=== PATIENT | male | born 1965 | race Caucasian/White ===

== ENCOUNTER 2016-10-31 15:50 | Inpatient (IN) | payer BC, MEDICAID ==
[2016-10-31] MEDS ORDERED: Acetaminophen 325 MG Tab PO PRN (17:21)
[2016-10-31] MEDS ORDERED: Bisacodyl 5 MG Tab PO PRN (17:21)
[2016-10-31] MEDS ORDERED: Polyethylene Glycol 3350 Powder 17 GM Packet PO PRN (17:21)
[2016-10-31] MEDS ORDERED: Docusate Sodium 100 MG Cap PO PRN (17:21)
[2016-10-31] MEDS ORDERED: Sodium Chloride 0.9% 1,000 ML IV SCH (17:30)
[2016-10-31] MEDS ORDERED: Cyclobenzaprine 5 MG Tab PO PRN (17:42)
[2016-10-31] MEDS ORDERED: fentaNYL 50 MCG/HR Transdermal Patch TRDERM SCH (17:45)
--- NOTE | 2016-10-31 18:00 | PCM.HP ---
H&P History of Present Illness - General Date of Service: 10/31/16 Admit Problem/Dx: Admission Diagnosis/Problem Admission Diagnosis/Problem Edema Source of Information: Patient History Limitations: Reports: No limitations - History of Present Illness Initial Comments - Free Text/Narative: 51 year old male admitted directly from his oncology clinic with peripheral edema. 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 He has undergone radiation and chemotherapy treatment which has caused him to be very nauseous and lose his appetite. Secondary to the decreased appetite and nausea, the patient has not been taking any of his home medications which include medications for CHF, atrial fibrillation, HTN, GERD and chronic pain. Patient notes that he feels weak and fatigued. He has not had a BM in 4 days and has urinated very little in that time span as well. He is in the worse pain he has ever been in since being diagnosed with lung cancer in october of 2015. The pain is diffuse but worse at the right shoulder blade, one of the locations of metastasis. He is currently prescribed Cameron, lidocaine gel and fentanyl patches for his pain management. He has severe lower extremity pitting edema because he has not been able to take his diuretic medications secondary to nausea. An ECHO done in May 2014 showed an EF of 25%, hypokinetic chaudhry, and findings consistent with elevated right atrial pressure. He requires assistance when ambulating. He also notes oral thrush secondary to his cancer treatments. He finds it difficult at times to swallow. He denies any headaches, dizziness, chest pain, palpitations, abdominal pain, fever. - Related Data Allergies/Adverse Reactions: Allergies Allergy/AdvReac Type Severity Reaction Status Date / Time No Known Allergies Allergy Verified 08/19/16 16:03 Home Medications: Home Meds Albuterol Sulfate [Ventolin Hfa] 1 - 2 puff INH ASDIRECTED PRN 11/09/15 [History ] Amiodarone HCl [Amiodarone HCl] 200 mg PO DAILY 10/31/16 [History] Carvedilol [Carvedilol] 12.5 mg PO BIDMEALS 10/31/16 [History] Cyclobenzaprine HCl [Cyclobenzaprine HCl] 5 mg PO TID PRN 10/31/16 [History] Diltiazem HCl [Dilt-Xr] 180 mg PO DAILY 10/31/16 [History] Fluticasone/Vilanterol [Breo Ellipta 100-25 MCG Inhalation Kit] 1 inh IH DAILY 10/31/16 [History] Hydrocodone/Acetaminophen [Cameron 10-325 Tablet] 10 - 325 mg PO Q4H PRN 10/31/16 [History] Lansoprazole [Prevacid] 30 mg PO ACBREAKFAST 10/31/16 [History] Lidocaine 5% [Lidoderm 5%] 1 patch TD DAILY 10/31/16 [History] Lisinopril [Lisinopril] 20 mg PO DAILY 10/31/16 [History] Nystatin [Mycostatin] 5 ml PO QIDACANDBED 10/31/16 [History] Prednisone [IJD: predniSONE] 10 mg PO DAILY 10/31/16 [History] Torsemide [Torsemide] 20 mg PO DAILY 10/31/16 [History] fentaNYL [Duragesic] 50 mcg TD Q72H 10/31/16 [History] Past Medical History Other HEENT History: wears glasses Cardiovascular History: Reports: Afib, Heart Failure, Hypertension Respiratory History: Reports: COPD, Other (see below) Other Respiratory History: hx of pneumothorax after falling and fx ribs Gastrointestinal History: Reports: GERD, Other (see below) Other Gastrointestinal History: chronic nausea Genitourinary History: Reports: Other (see below) Other Genitourinary History: hx renal failure Musculoskeletal History: Reports: Arthritis Neurological History: Reports: None Psychiatric History: Reports: None Endocrine/Metabolic History: Reports: None Hematologic History: Reports: Blood transfusion(s) Other Hematologic History: transfusion as an Immunologic History: Reports: None, Other (see below) Other Immunologic History: pt currently on chemo and radiation 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, Metastatic, Squamous cell carcinoma Dermatologic History: Reports: None - Infectious Disease History Infectious Disease History: Reports: Chicken pox, Measles, Mumps - Past Surgical History Head Surgeries/Procedures: Reports: None HEENT Surgical History: Reports: Other (see below) Other HEENT Surgeries/Procedures: multiple eye surgeries as a child, hx ear drum reconstruction Cardiovascular Surgical History: Reports: None Respiratory Surgical History: Reports: Other (see below) Other Respiratory Surgeries/Procedures: insertion of chest tube for pneumothorax GI Surgical History: Reports: None Other GI Surgeries/Procedures: ? cancer of esphogus Male Surgical History: Reports: None Musculoskeletal Surgical History: Reports: None Oncologic Surgical History: Reports: Other (see below) Other Oncologic Surgeries/Procedures: biopsy of lung Social & Family History - Family History Family Medical History: Noncontributory - Tobacco Use Smoking Status *Q: Current Every Day Smoker Years of Tobacco use: 30 Packs/Tins Daily: 0 Second Hand Smoke Exposure: No - Caffeine Use Caffeine Use: Reports: Soda - Alcohol Use Days Per Week of Alcohol Use: 0 Number of Drinks Per Day: 0 Total Drinks Per Week: 0 - Recreational Drug Use Recreational Drug Use: No Drug Use in Last 12 Months: No H&P Review of Systems - Review of Systems: Review Of Systems: See Below General: Reports: weakness, fatigue, decreased appetite HEENT: Reports: sore throat Pulmonary: Reports: No Symptoms Cardiovascular: Reports: edema Gastrointestinal: Reports: No symptoms, Constipation, Decreased appetite, Nausea , Vomiting Genitourinary: Reports: other (decreased urine output) Musculoskeletal: Reports: other (diffuse body aches with an area that is worse at his right shoulder blade) Skin: Reports: no symptoms Psychiatric: Reports: no symptoms Neurological: Reports: No Symptoms Hematologic/Lymphatic: Reports: no symptoms Immunologic: Reports: no symptoms Exam - Exam Exam: See Below - Vital Signs Vital Signs: Last Vital Signs Temp 97.3 F 10/31/16 16:03 Pulse 106 H 10/31/16 16:03 Resp 16 10/31/16 16:03 BP 121/54 L 10/31/16 16:03 Pulse Ox 94 L 10/31/16 16:03 Weight: 190 lb 4.8 oz - Exam Quality Assessment: DVT prophylaxis (SCD's, lovenox) General: alert, oriented, cooperative HEENT: Conjunctiva clear, EOMI, Hearing intact, Nares patent, Normal nasal septum, Other (oral thrush) Neck: supple, trachea midline, 2 Lungs: Normal respiratory effort, Rhonchi (bilaterally and diffusely) Cardiovascular: regular rhythm, tachycardia (106) Abdomen: normal bowel sounds, soft. No: rebound, tenderness Back Exam: normal inspection Extremities: normal inspection, edema (bilaterally, +3). No: calf tenderness Peripheral Pulses: 2+: radial (L), radial (R) Skin: warm, dry, intact Neurological: cranial nerves intact Neuro Extensive - Mental Status: alert, oriented x3, normal mood/affect, normal cognition Neuro Extensive - Motor, Sensory, Reflexes: CN II-XII intact Psychiatric: alert, normal affect, normal mood - Patient Data Lab Results last 24 hrs: Laboratory Results - last 24 hr 10/31/16 10/31/16 10/31/16 Range/Units 16:19 16:19 16:19 WBC 15.74 H (4.0-11.0) K/uL RBC 3.80 L (4.50-5.90) M/uL Hgb 12.2 L (13.0-17.0) g/dL Hct 37.7 L (38.0-50.0) % MCV 99.2 H (80.0-98.0) fL MCH 32.1 H (27.0-32.0) pg MCHC 32.4 (31.0-37.0) g/dL RDW Std Deviation 65.8 H (28.0-62.0) fl RDW Coeff of Saira 20 H (11.0-15.0) % Plt Count 82 L (150-400) K/uL MPV 10.30 (7.40-12.00) fL Add Manual Diff YES Neutrophils % (Manual) 92 H (48.0-80.0) % Band Neutrophils % 2 % Lymphocytes % (Manual) 3 L (16.0-40.0) % Monocytes % (Manual) 3 (0.0-15.0) % Nucleated RBC % 2.2 /100WBC Absolute Seg Neuts 14.5 Band Neutrophils # 0.3 Lymphocytes # (Manual) 0.5 Monocytes # (Manual) 0.5 Nucleated RBCs 1 % Nucleated RBCs # 0 K/uL INR (0.86-1.11) Sodium 134 L (136-146) mmol/L Potassium 4.0 (3.5-5.1) mmol/L Chloride 96 L (98-110) mmol/L Carbon Dioxide 26 (21-31) mmol/L BUN 32 H (6.0-23.0) mg/dL Creatinine 1.3 (0.6-1.5) mg/dL Est Cr Clr Drug Dosing 65.71 mL/min Estimated GFR (MDRD) 57.7 ml/min Glucose 100 (60-110) mg/dL Calcium 10.4 (8.8-10.8) mg/dL Total Bilirubin 1.1 (0.1-1.5) mg/dL AST 26 (5-40) IU/L ALT 36 (8-54) IU/L Alkaline Phosphatase 108 (40-150) B-Natriuretic Peptide 1075 H (<100) PG/ML Total Protein 6.6 (6.0-8.0) g/dL Albumin 3.5 (3.5-5.0) g/dL Globulin 3.1 (2.0-3.5) g/dL Albumin/Globulin Ratio 1.1 L (1.3-2.8) 10/31/16 Range/Units 16:19 WBC (4.0-11.0) K/uL RBC (4.50-5.90) M/uL Hgb (13.0-17.0) g/dL Hct (38.0-50.0) % MCV (80.0-98.0) fL MCH (27.0-32.0) pg MCHC (31.0-37.0) g/dL RDW Std Deviation (28.0-62.0) fl RDW Coeff of Saira (11.0-15.0) % Plt Count (150-400) K/uL MPV (7.40-12.00) fL Add Manual Diff Neutrophils % (Manual) (48.0-80.0) % Band Neutrophils % % Lymphocytes % (Manual) (16.0-40.0) % Monocytes % (Manual) (0.0-15.0) % Nucleated RBC % /100WBC Absolute Seg Neuts Band Neutrophils # Lymphocytes # (Manual) Monocytes # (Manual) Nucleated RBCs % Nucleated RBCs # K/uL INR 1.14 H (0.86-1.11) Sodium (136-146) mmol/L Potassium (3.5-5.1) mmol/L Chloride (98-110) mmol/L Carbon Dioxide (21-31) mmol/L BUN (6.0-23.0) mg/dL Creatinine (0.6-1.5) mg/dL Est Cr Clr Drug Dosing mL/min Estimated GFR (MDRD) ml/min Glucose (60-110) mg/dL Calcium (8.8-10.8) mg/dL Total Bilirubin (0.1-1.5) mg/dL AST (5-40) IU/L ALT (8-54) IU/L Alkaline Phosphatase (40-150) B-Natriuretic Peptide (<100) PG/ML Total Protein (6.0-8.0) g/dL Albumin (3.5-5.0) g/dL Globulin (2.0-3.5) g/dL Albumin/Globulin Ratio (1.3-2.8) Result Diagrams: 10/31/16 16:19 10/31/16 16:19 *Q Meaningful Use (ADM) - VTE *Q VTE Criteria *Q: - Stroke *Q Stroke Criteria *Q: - AMI *Q AMI Criteria *Q: - Problem List (1) CHF, Congestive heart failure SNOMED Code(s): 34382936 ICD Code: I50.9 - HEART FAILURE, UNSPECIFIED Status: Acute Current Visit : No (2) Lung cancer SNOMED Code(s): 659865045 ICD Code: C34.90 - MALIGNANT NEOPLASM OF UNSP PART OF UNSP BRONCHUS OR LUNG Status: Acute Current Visit: No Qualifiers: Laterality: unspecified laterality Lung location: unspecified part of lung Qualified Code(s): C34.90 - Malignant neoplasm of unspecified part of unspecified bronchus or lung (3) Pneumonia SNOMED Code(s): 311822946 ICD Code: J18.9 - PNEUMONIA, UNSPECIFIED ORGANISM Status: Acute Current Visit: No Problem List Initiated/Reviewed/Updated: Yes Orders Last 24hrs: Active Orders 24 hr Category Date Time Status Patient Status [ADT] Routine ADT 10/31/16 17:21 Active Antiembolic Devices [RC] PER UNIT ROUTINE Care 10/31/16 17:31 Active Cardiac Monitoring [RC] INTERMITTENT Care 10/31/16 17:22 Active EKG Documentation Completion [RC] ROUTINE Care 10/31/16 17:21 Active Height and Weight [RC] DAILY Care 10/31/16 17:21 Active Intake and Output [RC] QSHIFT Care 10/31/16 17:22 Active Notify Provider Vital Signs [RC] ASDIRECTED Care 10/31/16 17:24 Active Oxygen Therapy [RC] PRN Care 10/31/16 17:21 Active Pulse Oximetry [RC] PRN Care 10/31/16 17:22 Active Up With Assistance [RC] ASDIRECTED Care 10/31/16 17:21 Active VTE/DVT Education [RC] PER UNIT ROUTINE Care 10/31/16 17:21 Active Vital Signs [RC] Q4H Care 10/31/16 17:21 Active Regular Diet [DIET] Diet 10/31/16 Breakfast Active Chest 2V [CR] Routine Exams 10/31/16 16:18 Ordered BASIC METABOLIC PANEL,BMP [CHEM] AM Lab 11/01/16 05:11 Ordered BASIC METABOLIC PANEL,BMP [CHEM] AM Lab 11/02/16 05:11 Ordered BASIC METABOLIC PANEL,BMP [CHEM] AM Lab 11/03/16 05:11 Ordered CBC WITH AUTO DIFF [HEME] AM Lab 11/01/16 05:11 Ordered CBC WITH AUTO DIFF [HEME] AM Lab 11/02/16 05:11 Ordered CBC WITH AUTO DIFF [HEME] AM Lab 11/03/16 05:11 Ordered MAGNESIUM [CHEM] AM Lab 11/01/16 05:11 Ordered MAGNESIUM [CHEM] AM Lab 11/02/16 05:11 Ordered MAGNESIUM [CHEM] AM Lab 11/03/16 05:11 Ordered UA W/MICROSCOPIC [URIN] Routine Lab 10/31/16 17:21 Uncollected Acetaminophen [Tylenol] Med 10/31/16 17:21 Active 650 mg PO Q4H PRN Acetaminophen/HYDROcodone [Cameron 325-5 MG] Med 10/31/16 17:21 Active 2 tab PO Q4H PRN Amiodarone [Cordarone] Med 10/31/16 17:45 Active 200 mg PO DAILY Bisacodyl [Dulcolax] Med 10/31/16 17:21 Active 5 mg PO DAILY PRN Carvedilol [Coreg] Med 11/01/16 08:00 Active 12.5 mg PO BIDMEALS Cyclobenzaprine [Flexeril] Med 10/31/16 17:42 Active 5 mg PO TID PRN Diltiazem HCl [Dilt-Xr] Med 10/31/16 17:45 Ordered 180 mg PO DAILY Docusate Sodium [Colace] Med 10/31/16 17:21 Active 100 mg PO BID PRN Enoxaparin [Lovenox] Med 10/31/16 18:00 Ordered 40 mg SUBCUT Q24H Furosemide [Lasix] Med 10/31/16 17:45 Ordered 40 mg IVPUSH BID Lansoprazole [Prevacid] Med 11/01/16 07:30 Ordered 30 mg PO ACBREAKFAST Levofloxacin/Dextrose 5%-Water [Levaquin in D5W 750 MG/ Med 10/31/16 17:48 Ordered 150 ML] 750 mg Premix Bag 1 bag IV Q24H Lidocaine 5% Med 10/31/16 17:45 Ordered 1 patch TD DAILY Lisinopril [Prinivil] Med 10/31/16 17:45 Active 20 mg PO DAILY Nystatin [Mycostatin] Med 10/31/16 21:00 Active 5 ml PO QIDACANDBED Ondansetron [Zofran] Med 10/31/16 17:21 Active 4 mg IVPUSH Q4H PRN Polyethylene Glycol 3350 [MiraLAX] Med 10/31/16 17:21 Active 17 gm PO DAILY PRN fentaNYL [Duragesic] Med 10/31/16 17:45 Active 50 mcg TRDERM Q72H predniSONE Med 10/31/16 17:45 Ordered 10 mg PO DAILY Sequential Compression Device [OM.PC] Per Unit Routine Oth 10/31/16 17:24 Ordered Resuscitation Status Routine Resus Stat 10/31/16 17:21 Ordered Medication Orders Acetaminophen (Tylenol) 650 mg PO Q4H PRN PRN Reason: Pain (Mild 1-3)/fever Hydrocodone Bitart/Acetaminophen (Cameron 325-5 Mg) 2 tab PO Q4H PRN PRN Reason: Pain (moderate 4-6) Amiodarone HCl (Cordarone) 200 mg PO DAILY [facility] Bisacodyl (Dulcolax) 5 mg PO DAILY PRN PRN Reason: Constipation Carvedilol (Coreg) 12.5 mg PO BIDMEALS [facility] Cyclobenzaprine HCl (Flexeril) 5 mg PO TID PRN PRN Reason: Spasms Docusate Sodium (Colace) 100 mg PO BID PRN PRN Reason: Constipation Enoxaparin Sodium (Lovenox) 40 mg SUBCUT Q24H [facility] Fentanyl (Duragesic) 50 mcg TRDERM Q72H [facility] Furosemide (Lasix) 40 mg IVPUSH BID [facility] Levofloxacin/Dextrose 750 mg/ (Premix) 150 mls @ 100 mls/hr IV Q24H [facility] Lisinopril (Prinivil) 20 mg PO DAILY [facility] Non-Formulary Medication (Diltiazem Hcl [Dilt-Xr]) 180 mg PO DAILY [facility] Non-Formulary Medication (Lansoprazole [Prevacid]) 30 mg PO ACBREAKFAST [facility] Non-Formulary Medication (Lidocaine 5%) 1 patch TD DAILY [facility] Nystatin (Mycostatin) 5 ml PO QIDACANDBED [facility] Ondansetron HCl (Zofran) 4 mg IVPUSH Q4H PRN PRN Reason: Nausea Polyethylene Glycol (Miralax) 17 gm PO DAILY PRN PRN Reason: Constipation Prednisone (Prednisone) 10 mg PO DAILY [facility] Assessment/Plan Comment:: 51 year old male admitted with severe peripheral edema secondary to CHF 1. CHF exacerbation with peripheral edema -Lasix 40mg IV BID. -CXR ordered. Results pending. -EKG ordered. 2. Leukocytosis: -WBC count elevated. Started on Levaquin 750mg IV daily -CXR pending. -blood culture and urine culture pending 3. Atrial fibrillation: -resume home medications of amiodarone and diltiazem. -not currently using anticoagulation. Will start daily Lovenox 40mg and SCD prophylaxis -magnesium level is pending Restarted all home medications.
[2016-10-31] MEDS: Amiodarone 200 MG Tab PO SCH (18:01)
[2016-10-31] MEDS: Lisinopril 10 MG Tab PO SCH ×2 (18:01→18:36)
[2016-10-31] MEDS: Furosemide 40 MG/4 ML VIAL IVPUSH SCH (18:19)
[2016-10-31] MEDS: Enoxaparin 40 MG/0.4 ML Syringe SUBCUT SCH (18:19)
[2016-10-31] MEDS ORDERED: Levofloxacin/Dextrose 5%-Water 750 MG in Premix Bag 1 BAG IV SCH (18:30)
[2016-10-31] MEDS: predniSONE 10 MG Tab PO SCH (18:31)
[2016-10-31] MEDS: Diltiazem 180 MG Cap.CD PO SCH (18:37)
[2016-10-31] MEDS: Acetaminophen/HYDROcodone 325-5 MG Tab PO PRN (20:47)
[2016-10-31] MEDS: Nystatin Susp 100,000 Unit/ML 5 ML UD Cup PO SCH (20:59)
[2016-10-31] MEDS ORDERED: Nystatin Susp 100,000 Unit/ML 60 ML Bottle PO SCH (21:00)
[2016-11-01] MEDS: Acetaminophen/HYDROcodone 325-5 MG Tab PO PRN ×2 (00:46→05:07)
[2016-11-01 05:44] LABS: CHLORIDE,CL 98 mmol/L (98-110); SODIUM,NA 135 mmol/L (136-146)
[2016-11-01] MEDS: Omeprazole 20 MG Cap.CR PO SCH (06:41)
[2016-11-01] MEDS: Furosemide 40 MG/4 ML VIAL IVPUSH SCH ×2 (06:41→17:32)
[2016-11-01] MEDS: Nystatin Susp 100,000 Unit/ML 5 ML UD Cup PO SCH ×4 (06:41→20:24)
[2016-11-01] MEDS: Diltiazem 180 MG Cap.CD PO SCH (08:06)
[2016-11-01] MEDS: predniSONE 10 MG Tab PO SCH (08:06)
[2016-11-01] MEDS: Amiodarone 200 MG Tab PO SCH (08:07)
[2016-11-01] MEDS: Carvedilol 12.5 MG Tab PO SCH ×2 (08:07→17:08)
[2016-11-01] MEDS: Lisinopril 10 MG Tab PO SCH (08:07)
[2016-11-01] MEDS ORDERED: Lisinopril 5 MG Tab PO SCH (09:19)
[2016-11-01] MEDS: Lidocaine 5% Patch TOP SCH (09:44)
--- NOTE | 2016-11-01 09:47 | PCM.PN ---
- General Info Date of Service: 11/01/16 Admission Dx/Problem (Free Text): Admission Diagnosis/Problem Admission Diagnosis/Problem CHF exacerbation Subjective Update: patient feels better this morning. He has improved edema in his lower extremities. Pain is being adequately controlled. CXR shows pneumonia in right lung. He continues on Levaquin. Functional Status: Reports: pain controlled, tolerating diet, ambulating, incentive spirometry - Review of Systems General: Reports: Weakness, Fatigue HEENT: Reports: no symptoms Pulmonary: Reports: no symptoms Cardiovascular: Reports: No Symptoms, Edema (lower extremities bilaterally) Gastrointestinal: Reports: Constipation Genitourinary: Reports: no symptoms Musculoskeletal: Reports: other (diffuse body pain with worse pain at right shulder blade. ) Skin: Reports: no symptoms Neurological: Reports: No Symptoms Psychiatric: Reports: no symptoms - Patient Data Vitals - most recent: Last Vital Signs Temp 97.1 F 11/01/16 08:00 Pulse 96 11/01/16 08:07 Resp 16 11/01/16 08:00 BP 98/57 L 11/01/16 08:07 Pulse Ox 93 L 11/01/16 08:00 Weight - most recent: 185 lb 3.013 oz I&O - last 24 hours: Intake & Output 10/31/16 11/01/16 11/01/16 22:59 06:59 14:59 Intake Total 500 Output Total 1050 Balance -550 Lab Results last 24 hrs: Laboratory Results - last 24 hr 10/31/16 10/31/16 10/31/16 Range/Units 16:19 16:19 16:19 WBC 15.74 H (4.0-11.0) K/uL RBC 3.80 L (4.50-5.90) M/uL Hgb 12.2 L (13.0-17.0) g/dL Hct 37.7 L (38.0-50.0) % MCV 99.2 H (80.0-98.0) fL MCH 32.1 H (27.0-32.0) pg MCHC 32.4 (31.0-37.0) g/dL RDW Std Deviation 65.8 H (28.0-62.0) fl RDW Coeff of Saira 20 H (11.0-15.0) % Plt Count 82 L (150-400) K/uL MPV 10.30 (7.40-12.00) fL Neut % (Auto) (48.0-80.0) % Lymph % (Auto) (16.0-40.0) % Humphreys % (Auto) (0.0-15.0) % Eos % (Auto) (0.0-7.0) % Baso % (Auto) (0.0-1.5) % Neut # (Auto) (1.4-5.7) K/uL Lymph # (Auto) (0.6-2.4) K/uL Humphreys # (Auto) (0.0-0.8) K/uL Eos # (Auto) (0.0-0.7) K/uL Baso # (Auto) (0.0-0.1) K/uL Add Manual Diff YES Neutrophils % (Manual) 92 H (48.0-80.0) % Band Neutrophils % 2 % Lymphocytes % (Manual) 3 L (16.0-40.0) % Monocytes % (Manual) 3 (0.0-15.0) % Nucleated RBC % 2.2 /100WBC Absolute Seg Neuts 14.5 Band Neutrophils # 0.3 Lymphocytes # (Manual) 0.5 Monocytes # (Manual) 0.5 Nucleated RBCs 1 % Nucleated RBCs # 0 K/uL INR (0.86-1.11) Sodium 134 L (136-146) mmol/L Potassium 4.0 (3.5-5.1) mmol/L Chloride 96 L (98-110) mmol/L Carbon Dioxide 26 (21-31) mmol/L BUN 32 H (6.0-23.0) mg/dL Creatinine 1.3 (0.6-1.5) mg/dL Est Cr Clr Drug Dosing 65.71 mL/min Estimated GFR (MDRD) 57.7 ml/min Glucose 100 (60-110) mg/dL Calcium 10.4 (8.8-10.8) mg/dL Magnesium (1.5-2.3) mEq/L Total Bilirubin 1.1 (0.1-1.5) mg/dL AST 26 (5-40) IU/L ALT 36 (8-54) IU/L Alkaline Phosphatase 108 (40-150) B-Natriuretic Peptide 1075 H (<100) PG/ML Total Protein 6.6 (6.0-8.0) g/dL Albumin 3.5 (3.5-5.0) g/dL Globulin 3.1 (2.0-3.5) g/dL Albumin/Globulin Ratio 1.1 L (1.3-2.8) Urine Color Urine Appearance Urine pH (5.0-8.0) Ur Specific Baldwin (1.001-1.035) Urine Protein (NEGATIVE) mg/dL Urine Glucose (UA) (NEGATIVE) mg/dL Urine Ketones (NEGATIVE) mg/dL Urine Occult Blood (NEGATIVE) Urine Nitrite (NEGATIVE) Urine Bilirubin (NEGATIVE) Urine Urobilinogen (<2.0) EU/dL Ur Leukocyte Esterase (NEGATIVE) Urine RBC (0-2/HPF) Urine WBC (0-5/HPF) Ur Epithelial Cells (NONE-FEW) Uric Acid Crystals (NEGATIVE) Urine Bacteria (NEGATIVE) 10/31/16 10/31/16 10/31/16 Range/Units 16:19 16:19 19:10 WBC (4.0-11.0) K/uL RBC (4.50-5.90) M/uL Hgb (13.0-17.0) g/dL Hct (38.0-50.0) % MCV (80.0-98.0) fL MCH (27.0-32.0) pg MCHC (31.0-37.0) g/dL RDW Std Deviation (28.0-62.0) fl RDW Coeff of Saira (11.0-15.0) % Plt Count (150-400) K/uL MPV (7.40-12.00) fL Neut % (Auto) (48.0-80.0) % Lymph % (Auto) (16.0-40.0) % Humphreys % (Auto) (0.0-15.0) % Eos % (Auto) (0.0-7.0) % Baso % (Auto) (0.0-1.5) % Neut # (Auto) (1.4-5.7) K/uL Lymph # (Auto) (0.6-2.4) K/uL Humphreys # (Auto) (0.0-0.8) K/uL Eos # (Auto) (0.0-0.7) K/uL Baso # (Auto) (0.0-0.1) K/uL Add Manual Diff Neutrophils % (Manual) (48.0-80.0) % Band Neutrophils % % Lymphocytes % (Manual) (16.0-40.0) % Monocytes % (Manual) (0.0-15.0) % Nucleated RBC % /100WBC Absolute Seg Neuts Band Neutrophils # Lymphocytes # (Manual) Monocytes # (Manual) Nucleated RBCs % Nucleated RBCs # K/uL INR 1.14 H (0.86-1.11) Sodium (136-146) mmol/L Potassium (3.5-5.1) mmol/L Chloride (98-110) mmol/L Carbon Dioxide (21-31) mmol/L BUN (6.0-23.0) mg/dL Creatinine (0.6-1.5) mg/dL Est Cr Clr Drug Dosing mL/min Estimated GFR (MDRD) ml/min Glucose (60-110) mg/dL Calcium (8.8-10.8) mg/dL Magnesium 2.2 (1.5-2.3) mEq/L Total Bilirubin (0.1-1.5) mg/dL AST (5-40) IU/L ALT (8-54) IU/L Alkaline Phosphatase (40-150) B-Natriuretic Peptide (<100) PG/ML Total Protein (6.0-8.0) g/dL Albumin (3.5-5.0) g/dL Globulin (2.0-3.5) g/dL Albumin/Globulin Ratio (1.3-2.8) Urine Color YELLOW Urine Appearance CLEAR Urine pH 6.0 (5.0-8.0) Ur Specific Baldwin 1.010 (1.001-1.035) Urine Protein NEGATIVE (NEGATIVE) mg/dL Urine Glucose (UA) NEGATIVE (NEGATIVE) mg/dL Urine Ketones NEGATIVE (NEGATIVE) mg/dL Urine Occult Blood NEGATIVE (NEGATIVE) Urine Nitrite NEGATIVE (NEGATIVE) Urine Bilirubin NEGATIVE (NEGATIVE) Urine Urobilinogen 0.2 (<2.0) EU/dL Ur Leukocyte Esterase NEGATIVE (NEGATIVE) Urine RBC 0-1 (0-2/HPF) Urine WBC 0-2 (0-5/HPF) Ur Epithelial Cells RARE (NONE-FEW) Uric Acid Crystals RARE (NEGATIVE) Urine Bacteria RARE (NEGATIVE) 11/01/16 11/01/16 Range/Units 04:50 04:50 WBC 12.77 H (4.0-11.0) K/uL RBC 3.37 L (4.50-5.90) M/uL Hgb 10.7 L (13.0-17.0) g/dL Hct 33.9 L (38.0-50.0) % MCV 100.6 H (80.0-98.0) fL MCH 31.8 (27.0-32.0) pg MCHC 31.6 (31.0-37.0) g/dL RDW Std Deviation 68.7 H (28.0-62.0) fl RDW Coeff of Saira 20 H (11.0-15.0) % Plt Count 85 L (150-400) K/uL MPV 10.90 (7.40-12.00) fL Neut % (Auto) 90.6 H (48.0-80.0) % Lymph % (Auto) 0.9 L (16.0-40.0) % Humphreys % (Auto) 8.4 (0.0-15.0) % Eos % (Auto) 0.0 (0.0-7.0) % Baso % (Auto) 0.1 (0.0-1.5) % Neut # (Auto) 11.6 H (1.4-5.7) K/uL Lymph # (Auto) 0.1 L (0.6-2.4) K/uL Humphreys # (Auto) 1.1 H (0.0-0.8) K/uL Eos # (Auto) 0.0 (0.0-0.7) K/uL Baso # (Auto) 0.0 (0.0-0.1) K/uL Add Manual Diff Neutrophils % (Manual) (48.0-80.0) % Band Neutrophils % % Lymphocytes % (Manual) (16.0-40.0) % Monocytes % (Manual) (0.0-15.0) % Nucleated RBC % 1.1 /100WBC Absolute Seg Neuts Band Neutrophils # Lymphocytes # (Manual) Monocytes # (Manual) Nucleated RBCs % Nucleated RBCs # 0 K/uL INR (0.86-1.11) Sodium 135 L (136-146) mmol/L Potassium 3.9 (3.5-5.1) mmol/L Chloride 98 (98-110) mmol/L Carbon Dioxide 24 (21-31) mmol/L BUN 32 H (6.0-23.0) mg/dL Creatinine 1.2 (0.6-1.5) mg/dL Est Cr Clr Drug Dosing 71.19 mL/min Estimated GFR (MDRD) > 60.0 ml/min Glucose 90 (60-110) mg/dL Calcium 9.1 (8.8-10.8) mg/dL Magnesium 2.0 (1.5-2.3) mEq/L Total Bilirubin (0.1-1.5) mg/dL AST (5-40) IU/L ALT (8-54) IU/L Alkaline Phosphatase (40-150) B-Natriuretic Peptide (<100) PG/ML Total Protein (6.0-8.0) g/dL Albumin (3.5-5.0) g/dL Globulin (2.0-3.5) g/dL Albumin/Globulin Ratio (1.3-2.8) Urine Color Urine Appearance Urine pH (5.0-8.0) Ur Specific Baldwin (1.001-1.035) Urine Protein (NEGATIVE) mg/dL Urine Glucose (UA) (NEGATIVE) mg/dL Urine Ketones (NEGATIVE) mg/dL Urine Occult Blood (NEGATIVE) Urine Nitrite (NEGATIVE) Urine Bilirubin (NEGATIVE) Urine Urobilinogen (<2.0) EU/dL Ur Leukocyte Esterase (NEGATIVE) Urine RBC (0-2/HPF) Urine WBC (0-5/HPF) Ur Epithelial Cells (NONE-FEW) Uric Acid Crystals (NEGATIVE) Urine Bacteria (NEGATIVE) Romero Results last 24 hrs: Microbiology 10/31/16 16:19 Anaerobic Blood Culture - Final Blood - Venous Med Orders - Current: Current Medications Acetaminophen (Tylenol) 650 mg PO Q4H PRN PRN Reason: Pain (Mild 1-3)/fever Hydrocodone Bitart/Acetaminophen (Lorena 325-5 Mg) 2 tab PO Q4H PRN PRN Reason: Pain (moderate 4-6) Last Admin: 11/01/16 05:07 Dose: 2 tab Amiodarone HCl (Cordarone) 200 mg PO DAILY BLANCHE Last Admin: 11/01/16 08:07 Dose: 200 mg Bisacodyl (Dulcolax) 5 mg PO DAILY PRN PRN Reason: Constipation Carvedilol (Coreg) 12.5 mg PO BIDMEALS [facility] Last Admin: 11/01/16 08:07 Dose: 12.5 mg Cyclobenzaprine HCl (Flexeril) 5 mg PO TID PRN PRN Reason: Spasms Diltiazem HCl (Cardizem Cd) 180 mg PO DAILY [facility] Last Admin: 11/01/16 08:06 Dose: 180 mg Docusate Sodium (Colace) 100 mg PO BID PRN PRN Reason: Constipation Enoxaparin Sodium (Lovenox) 40 mg SUBCUT Q24H [facility] Last Admin: 10/31/16 18:19 Dose: 40 mg Fentanyl (Duragesic) 50 mcg TRDERM Q72H [facility] Last Admin: 10/31/16 18:02 Dose: 50 mcg Furosemide (Lasix) 40 mg IVPUSH Q12H [facility] Last Admin: 11/01/16 06:41 Dose: 40 mg Levofloxacin/Dextrose 750 mg/ (Premix) 150 mls @ 100 mls/hr IV Q24H [facility] Last Admin: 10/31/16 20:42 Dose: 100 mls/hr Lisinopril (Prinivil) 5 mg PO DAILY [facility] Nystatin (Mycostatin) 5 ml PO QIDACANDBED [facility] Last Admin: 11/01/16 06:41 Dose: 5 ml Omeprazole (Omeprazole) 20 mg PO ACBREAKFAST [facility] Last Admin: 11/01/16 06:41 Dose: 20 mg Ondansetron HCl (Zofran) 4 mg IVPUSH Q4H PRN PRN Reason: Nausea Polyethylene Glycol (Miralax) 17 gm PO DAILY PRN PRN Reason: Constipation Prednisone (Prednisone) 10 mg PO DAILY [facility] Last Admin: 11/01/16 08:06 Dose: 10 mg Discontinued Medications Sodium Chloride (Normal Saline) 1,000 mls @ 75 mls/hr IV ASDIRECTED [facility] Lisinopril (Prinivil) 20 mg PO DAILY [facility] Last Admin: 11/01/16 08:07 Dose: Not Given Nystatin (Mycostatin) 5 ml PO QIDACANDBED [facility] Lidocaine 5% Patch 1 each TOP DAILY BLANCHE - Exam Quality Assessment: DVT prophylaxis (SCD's. lovenox) General: alert, oriented, cooperative, no acute distress Neck: supple Lungs: Normal respiratory effort, Wheezing (lower lobes bilaterally) Cardiovascular: Regular Rate, Regular Rhythm Abdomen: bowel sounds present, soft, no tenderness, no distension Extremities: no calf tenderness, edema (+2 pitting edema in lower extremities) Peripheral Pulses: 2+: radial (L), radial (R) Skin: warm, dry, intact Neurological: no new focal deficit Psy/Mental Status: alert, normal affect, normal mood - Problem List & Annotations (1) CHF, Congestive heart failure SNOMED Code(s): 83061574 Code(s): I50.9 - HEART FAILURE, UNSPECIFIED Status: Acute Current Visit: No (2) Lung cancer SNOMED Code(s): 411148221 Code(s): C34.90 - MALIGNANT NEOPLASM OF UNSP PART OF UNSP BRONCHUS OR LUNG Status: Acute Current Visit: No Qualifiers: Laterality: unspecified laterality Lung location: unspecified part of lung Qualified Code(s): C34.90 - Malignant neoplasm of unspecified part of unspecified bronchus or lung (3) Pneumonia SNOMED Code(s): 615497558 Code(s): J18.9 - PNEUMONIA, UNSPECIFIED ORGANISM Status: Acute Current Visit: No - Problem List Review Problem List Initiated/Reviewed/Updated: Yes - My Orders Last 24 Hours: My Active Orders 10/31/16 16:18 Chest 2V [CR] Routine 10/31/16 16:19 CULTURE BLOOD [BC] Stat 10/31/16 17:21 Patient Status [ADT] Routine EKG Documentation Completion [RC] ROUTINE Height and Weight [RC] DAILY Oxygen Therapy [RC] PRN Up With Assistance [RC] ASDIRECTED VTE/DVT Education [RC] PER UNIT ROUTINE Vital Signs [RC] Q4H Acetaminophen [Tylenol] 650 mg PO Q4H PRN Acetaminophen/HYDROcodone [Lorena 325-5 MG] 2 tab PO Q4H PRN Bisacodyl [Dulcolax] 5 mg PO DAILY PRN Docusate Sodium [Colace] 100 mg PO BID PRN Ondansetron [Zofran] 4 mg IVPUSH Q4H PRN Polyethylene Glycol 3350 [MiraLAX] 17 gm PO DAILY PRN Resuscitation Status Routine 10/31/16 17:22 Cardiac Monitoring [RC] INTERMITTENT Intake and Output [RC] QSHIFT Pulse Oximetry [RC] PRN 10/31/16 17:24 Notify Provider Vital Signs [RC] ASDIRECTED Sequential Compression Device [OM.PC] Per Unit Routine 10/31/16 17:31 Antiembolic Devices [RC] PER UNIT ROUTINE 10/31/16 17:42 Cyclobenzaprine [Flexeril] 5 mg PO TID PRN 10/31/16 17:45 Amiodarone [Cordarone] 200 mg PO DAILY Diltiazem [Cardizem CD] 180 mg PO DAILY fentaNYL [Duragesic] 50 mcg TRDERM Q72H predniSONE 10 mg PO DAILY 10/31/16 18:00 Enoxaparin [Lovenox] 40 mg SUBCUT Q24H Furosemide [Lasix] 40 mg IVPUSH Q12H 10/31/16 18:07 Consult to Physical Therapy [PT Evaluation and Treatment] [CONS] Routine 10/31/16 18:13 Blood Culture x2 Reflex Set [OM.PC] Stat 10/31/16 18:25 CULTURE BLOOD [BC] Stat 10/31/16 18:30 Levofloxacin/Dextrose 5%-Water [Levaquin in D5W 750 MG/150 ML] 750 mg Premix Bag 1 bag IV Q24H 10/31/16 19:10 CULTURE URINE [RM] Routine 10/31/16 21:00 Nystatin [Mycostatin] 5 ml PO QIDACANDBED 11/01/16 07:30 Omeprazole 20 mg PO ACBREAKFAST 11/01/16 08:00 Carvedilol [Coreg] 12.5 mg PO BIDMEALS 11/01/16 09:19 Lisinopril [Prinivil] 5 mg PO DAILY 11/02/16 05:11 BASIC METABOLIC PANEL,BMP [CHEM] AM CBC WITH AUTO DIFF [HEME] AM MAGNESIUM [CHEM] AM 11/03/16 05:11 BASIC METABOLIC PANEL,BMP [CHEM] AM CBC WITH AUTO DIFF [HEME] AM MAGNESIUM [CHEM] AM - Plan Plan:: 51 year old male admitted with severe peripheral edema secondary to CHF 1. CHF exacerbation with peripheral edema -continue Lasix 40mg IV BID. -CXR shows Right lower lobe pneumonia 2. Community acquired pneumonia: -WBC count improved. Switch to PO Levaquin 750mg daily -CXR shows right lower lobe pneumonia -blood culture and urine culture pending 3. Atrial fibrillation: -continue home medications of amiodarone and diltiazem. -not currently using anticoagulation. Will start daily Lovenox 40mg and SCD prophylaxis -magnesium is 2 4. Lung cancer with bony mets: -continue pain meds (Lorena and Fentanyl patch) -add Motrin for bone pain
--- NOTE | 2016-11-01 11:20 | CR ---
EXAM DATE: 10/31/16 PATIENT'S AGE: 51 Patient: EMILE EVANS Facility: [place], [place] Site . Site : [id number] Study: XRay Chest [id number]/17/2017 9:05:46 PM Ordering Physician: Garrick Foster Final Report: INDICATIONS: Shortness of breath. TECHNIQUE: Chest 2 view. COMPARISON: Chest radiograph October 06, 2016. FINDINGS: Left-sided Port-A-Cath is unchanged. No pneumothorax or pleural effusion. There are new subtle nodular opacities in the right lower lobe. Right perihilar opacity has not significantly changed. Cardiac and mediastinal contours are otherwise stable. Upper abdomen and osseous structures show no acute abnormality. IMPRESSION: New right lower lobe airspace disease. Dictated by aBiron Green MD @ 10/31/2016 9:46:51 PM Dictated by: Bairon Green MD @ 10/31/2016 21:47:07 (Electronic Signature) Report Signed by Proxy and Original Signed Document filed in the Medical Record. [facility]
[2016-11-01] MEDS: Ibuprofen 800 MG Tab PO PRN ×2 (14:27→22:51)
[2016-11-01] MEDS: Enoxaparin 40 MG/0.4 ML Syringe SUBCUT SCH (17:31)
[2016-11-01] MEDS ORDERED: Levofloxacin 250 MG Tab PO SCH (18:30)
[2016-11-01] MEDS: Sodium Chloride 0.9% 500 ML IV PRN ×2 (21:12→23:45)
[2016-11-02] MEDS ORDERED: Sodium Chloride 0.9% 500 ML IV SCH (02:00)
[2016-11-02] MEDS: Acetaminophen/HYDROcodone 325-5 MG Tab PO PRN (03:35)
[2016-11-02] MEDS: Furosemide 40 MG/4 ML VIAL IVPUSH SCH (05:40)
[2016-11-02] MEDS: Nystatin Susp 100,000 Unit/ML 5 ML UD Cup PO SCH ×4 (06:31→20:48)
[2016-11-02] MEDS: Omeprazole 20 MG Cap.CR PO SCH (06:31)
[2016-11-02] MEDS: Carvedilol 12.5 MG Tab PO SCH ×2 (09:14→18:13)
[2016-11-02] MEDS: Diltiazem 180 MG Cap.CD PO SCH (09:15)
[2016-11-02] MEDS: predniSONE 10 MG Tab PO SCH (09:17)
[2016-11-02] MEDS: Amiodarone 200 MG Tab PO SCH (09:17)
[2016-11-02] MEDS: Albuterol 0.083% 2.5 MG/3 ML Neb Soln NEB PRN (09:54)
[2016-11-02] MEDS: Polyethylene Glycol 3350 Powder 17 GM Packet PO SCH (10:18)
[2016-11-02] MEDS: Docusate Sodium 100 MG Cap PO SCH ×2 (10:19→20:48)
[2016-11-02] MEDS: Ibuprofen 800 MG Tab PO PRN (10:19)
[2016-11-02] MEDS: Bisacodyl 5 MG Tab PO SCH (10:19)
--- NOTE | 2016-11-02 11:37 | PCM.PN ---
- General Info Date of Service: 11/02/16 Admission Dx/Problem (Free Text): Admission Diagnosis/Problem Admission Diagnosis/Problem CHF exacerbation Subjective Update: Pain is being adequately controlled. He still has not had a BM but has no abdominal pain. He was bladder scanned this am due to no urine output and found to have 455cc. Again, he denies any abdominal or pelvic pain. Straight cath was ordered. He was receiving Lasix yesterday and his peripheral edema improved but he became hypotensive and his BUN and creatinine increased. He was subsequently given 500cc Boluses x3. BP has improved slightly. All anti-hypertensive medications have been held. Patient was also receiving Lovenox injection for DVT prophylaxis but his platelet count has dropped to 66. Lovenox is now held. He continues on IV ABX for community acquired pneumonia. Functional Status: Reports: pain controlled, tolerating diet, ambulating - Review of Systems General: Reports: Weakness, Fatigue HEENT: Reports: no symptoms Pulmonary: Reports: shortness of breath (improving) Cardiovascular: Reports: No Symptoms Gastrointestinal: Reports: Constipation, Flatus. Denies: Nausea, Vomiting Genitourinary: Reports: retention Musculoskeletal: Reports: other (chronic pain from bony mets) Skin: Reports: no symptoms Neurological: Reports: No Symptoms Psychiatric: Reports: no symptoms - Patient Data Vitals - most recent: Last Vital Signs Temp 96.7 F 11/02/16 11:17 Pulse 101 H 11/02/16 11:17 Resp 18 11/02/16 11:17 BP 97/57 L 11/02/16 11:17 Pulse Ox 89 L 11/02/16 09:43 Weight - most recent: 195 lb 1.745 oz I&O - last 24 hours: Intake & Output 11/01/16 11/02/16 11/02/16 22:59 06:59 14:59 Intake Total 900 500 Balance 900 500 Lab Results last 24 hrs: Laboratory Results - last 24 hr 11/02/16 11/02/16 Range/Units 04:30 04:30 WBC 12.67 H (4.0-11.0) K/uL RBC 3.23 L (4.50-5.90) M/uL Hgb 10.5 L (13.0-17.0) g/dL Hct 32.4 L (38.0-50.0) % MCV 100.3 H (80.0-98.0) fL MCH 32.5 H (27.0-32.0) pg MCHC 32.4 (31.0-37.0) g/dL RDW Std Deviation 72.0 H (28.0-62.0) fl RDW Coeff of Saira 21 H (11.0-15.0) % Plt Count 66 L (150-400) K/uL MPV 10.80 (7.40-12.00) fL Neut % (Auto) 90.5 H (48.0-80.0) % Lymph % (Auto) 4.5 L (16.0-40.0) % Wood % (Auto) 4.9 (0.0-15.0) % Eos % (Auto) 0.0 (0.0-7.0) % Baso % (Auto) 0.1 (0.0-1.5) % Neut # (Auto) 11.5 H (1.4-5.7) K/uL Lymph # (Auto) 0.6 (0.6-2.4) K/uL Wood # (Auto) 0.6 (0.0-0.8) K/uL Eos # (Auto) 0.0 (0.0-0.7) K/uL Baso # (Auto) 0.0 (0.0-0.1) K/uL Nucleated RBC % 0.5 /100WBC Nucleated RBCs # 0 K/uL Sodium 133 L (136-146) mmol/L Potassium 3.9 (3.5-5.1) mmol/L Chloride 99 (98-110) mmol/L Carbon Dioxide 22 (21-31) mmol/L BUN 41 H (6.0-23.0) mg/dL Creatinine 1.7 H (0.6-1.5) mg/dL Est Cr Clr Drug Dosing 50.25 mL/min Estimated GFR (MDRD) 42.4 ml/min Glucose 80 (60-110) mg/dL Calcium 8.4 L (8.8-10.8) mg/dL Magnesium 1.9 (1.5-2.3) mEq/L Romero Results last 24 hrs: Microbiology 10/31/16 19:10 Urine Culture - Final Urine, Clean Catch MIXED REYNALDO 1,000-10,000 CFU/ML 10/31/16 18:25 Aerobic Blood Culture - Preliminary Blood - Venous - Lab Draw NO GROWTH AFTER 1 DAY Anaerobic Blood Culture - Preliminary NO GROWTH AFTER 1 DAY 10/31/16 16:19 Aerobic Blood Culture - Preliminary Blood - Venous NO GROWTH AFTER 1 DAY Anaerobic Blood Culture - Final Med Orders - Current: Current Medications Acetaminophen (Tylenol) 650 mg PO Q4H PRN PRN Reason: Pain (Mild 1-3)/fever Hydrocodone Bitart/Acetaminophen ([place] 325-5 Mg) 2 tab PO Q4H PRN PRN Reason: Pain (moderate 4-6) Last Admin: 11/02/16 03:35 Dose: 2 tab Albuterol (Proventil Neb Soln) 2.5 mg NEB Q4HRRT PRN PRN Reason: Wheezing Last Admin: 11/02/16 09:54 Dose: 2.5 mg Albuterol (Ventolin Hfa) 0 gm INH Q4H PRN PRN Reason: Shortness Of Breath/wheezing Amiodarone HCl (Cordarone) 200 mg PO DAILY [facility] Last Admin: 11/02/16 09:17 Dose: 200 mg Bisacodyl (Dulcolax) 5 mg PO DAILY [facility] Last Admin: 11/02/16 10:19 Dose: 5 mg Carvedilol (Coreg) 12.5 mg PO BIDMEALS [facility] Last Admin: 11/02/16 09:14 Dose: Not Given Cyclobenzaprine HCl (Flexeril) 5 mg PO TID PRN PRN Reason: Spasms Diltiazem HCl (Cardizem Cd) 180 mg PO DAILY [facility] Last Admin: 11/02/16 09:15 Dose: Not Given Docusate Sodium (Colace) 100 mg PO BID [facility] Last Admin: 11/02/16 10:19 Dose: 100 mg Enoxaparin Sodium (Lovenox) 40 mg SUBCUT Q24H [facility] Last Admin: 11/01/16 17:31 Dose: 40 mg Furosemide (Lasix) 40 mg IVPUSH Q12H [facility] Last Admin: 11/02/16 05:40 Dose: Not Given Sodium Chloride (Normal Saline) 500 mls @ 499 mls/hr IV Q2HR PRN PRN Reason: HYPOTENSION Last Admin: 11/01/16 23:45 Dose: 499 mls/hr Sodium Chloride (Normal Saline) 500 mls @ 499 mls/hr IV .BOLUS [facility] Last Admin: 11/02/16 02:13 Dose: 499 mls/hr Levofloxacin/Dextrose 750 mg/ (Premix) 150 mls @ 100 mls/hr IV Q48H [facility] Vancomycin HCl 1.25 gm/ Sodium (Chloride) 500 mls @ 333.333 mls/hr IV Q18H [facility] Ibuprofen (Motrin) 800 mg PO Q8H PRN PRN Reason: Pain Last Admin: 11/02/16 10:19 Dose: 800 mg Lisinopril (Prinivil) 5 mg PO DAILY [facility] Last Admin: 11/02/16 09:16 Dose: Not Given Nystatin (Mycostatin) 5 ml PO QIDACANDBED [facility] Last Admin: 11/02/16 06:31 Dose: 5 ml Omeprazole (Omeprazole) 20 mg PO ACBREAKFAST [facility] Last Admin: 11/02/16 06:31 Dose: 20 mg Ondansetron HCl (Zofran) 4 mg IVPUSH Q4H PRN PRN Reason: Nausea Oxycodone HCl (Oxycontin) 40 mg PO Q12HR [facility] Oxycodone HCl (Oxycodone) 10 mg PO Q3H PRN PRN Reason: Pain Polyethylene Glycol (Miralax) 17 gm PO DAILY [facility] Last Admin: 11/02/16 10:18 Dose: 17 gm Prednisone (Prednisone) 10 mg PO DAILY [facility] Last Admin: 11/02/16 09:17 Dose: 10 mg Vancomycin HCl (Pharmacy To Dose - Vancomycin) 1 dose .XX ASDIRECTED [facility] Discontinued Medications Bisacodyl (Dulcolax) 5 mg PO DAILY PRN PRN Reason: Constipation Docusate Sodium (Colace) 100 mg PO BID PRN PRN Reason: Constipation Last Admin: 11/01/16 20:24 Dose: 100 mg Fentanyl (Duragesic) 50 mcg TRDERM Q72H [facility] Last Admin: 10/31/16 18:02 Dose: 50 mcg Sodium Chloride (Normal Saline) 1,000 mls @ 75 mls/hr IV ASDIRECTED [facility] Levofloxacin/Dextrose 750 mg/ (Premix) 150 mls @ 100 mls/hr IV Q24H [facility] Last Admin: 10/31/16 20:42 Dose: 100 mls/hr Levofloxacin (Levaquin) 750 mg PO Q24H [facility] Last Admin: 11/01/16 17:31 Dose: 750 mg Lisinopril (Prinivil) 20 mg PO DAILY [facility] Last Admin: 11/01/16 08:07 Dose: Not Given Nystatin (Mycostatin) 5 ml PO QIDACANDBED [facility] Lidocaine 5% Patch 1 each TOP DAILY [facility] Last Admin: 11/01/16 09:44 Dose: Not Given Polyethylene Glycol (Miralax) 17 gm PO DAILY PRN PRN Reason: Constipation - Exam Quality Assessment: supplemental oxygen (nasal cannula), DVT prophylaxis (SCD's) General: alert, oriented, cooperative, no acute distress Neck: supple Lungs: Normal respiratory effort, Wheezing (Prentiss intermittently in lower lung rivera, R > L) Cardiovascular: Regular Rate, Regular Rhythm Abdomen: bowel sounds present, soft, no tenderness, no distension Back Exam: normal inspection Extremities: no calf tenderness, edema (+2 pitting edema in legs bilaterally) Peripheral Pulses: 2+: radial (L), radial (R) Skin: warm, dry, intact Neurological: no new focal deficit Psy/Mental Status: alert, normal affect, normal mood - Problem List & Annotations (1) CHF, Congestive heart failure SNOMED Code(s): 06682459 Code(s): I50.9 - HEART FAILURE, UNSPECIFIED Status: Acute Current Visit: No (2) Lung cancer SNOMED Code(s): 074294852 Code(s): C34.90 - MALIGNANT NEOPLASM OF UNSP PART OF UNSP BRONCHUS OR LUNG Status: Acute Current Visit: No Qualifiers: Laterality: unspecified laterality Lung location: unspecified part of lung Qualified Code(s): C34.90 - Malignant neoplasm of unspecified part of unspecified bronchus or lung (3) Pneumonia SNOMED Code(s): 150504451 Code(s): J18.9 - PNEUMONIA, UNSPECIFIED ORGANISM Status: Acute Current Visit: No - Problem List Review Problem List Initiated/Reviewed/Updated: Yes - My Orders Last 24 Hours: My Active Orders 11/02/16 08:26 Albuterol [Proventil Neb Soln] 2.5 mg NEB Q4HRRT PRN 11/02/16 08:27 RT Aerosol Therapy [RC] ASDIRECTED 11/02/16 08:30 Albuterol [Ventolin HFA] 0 gm INH Q4H PRN 11/02/16 09:51 Urinary Catheter Assessment [RC] ASDIRECTED 11/02/16 09:57 Urinary Catheter Assessment [RC] ASDIRECTED 11/02/16 10:00 Martinez Catheter Insertion [Insert Urinary Catheter] [OM.PC] Q24H Insert Urinary Catheter [OM.PC] Q24H Bisacodyl [Dulcolax] 5 mg PO DAILY Docusate Sodium [Colace] 100 mg PO BID Polyethylene Glycol 3350 [MiraLAX] 17 gm PO DAILY 11/02/16 11:00 oxyCODONE 10 mg PO Q3H PRN oxyCODONE ER [OxyCONTIN] 40 mg PO Q12HR 11/02/16 11:15 Consult to Physician [CONS] Routine Vancomycin Pharmacy to Dose [Pharmacy to Dose - Vancomycin] 1 dose .XX ASDIRECTED 11/02/16 11:16 Notify Provider Consults [RC] ASDIRECTED 11/02/16 12:00 Vancomycin 1.25 gm Sodium Chloride 0.9% [Normal Saline] 500 ml IV Q18H 11/02/16 18:30 Levofloxacin/Dextrose 5%-Water [Levaquin in D5W 750 MG/150 ML] 750 mg Premix Bag 1 bag IV Q48H 11/03/16 05:11 BASIC METABOLIC PANEL,BMP [CHEM] AM CBC WITH AUTO DIFF [HEME] AM MAGNESIUM [CHEM] AM - Plan Plan:: 51 year old male admitted with severe peripheral edema secondary to CHF 1. CHF exacerbation with peripheral edema -d/c Lasix secondary to hypotension and increasing BUN and Creatinine. -Contacted Dr. Rivera who agrees to see the patient. Tried contacting patients labor arbitrator in [place], Dr. Jones but he was not available. -patient has received 500cc bolus x3 secondary to hypotension and worsening kidney function -had ECHO August 2016. Looking for results. ECHO in 2013 showed EF 25%. 2. Community acquired pneumonia: -WBC count stable but still elevated. Continue levaquin. Started on IV Vancomycin and Zosyn for broader antibacterial coverage. -CXR shows right lower lobe pneumonia -blood culture negative x1 day -Albuterol PRN shortness of breath and wheezing. 3. Atrial fibrillation: -continue home medications of amiodarone and diltiazem. -magnesium is 1.9 4. Lung cancer with bony mets: -Continue [place]. Fentanyl patches d/c. Patient switched to Oxycontin 40mg BID and Oxycodone 10mg q4hrs PRN breakthrough pain. Recommended by Hospital pharmacistAllyssa. -continue Motrin for bone pain. Consider stopping if kidney function does not improve with IVF. Patient found great relief with addition of motrin. 5. Urinary retention: -455cc on bladder scan. Straight cath ordered. Patient considering home health when discharged. Disposition: 1-2 days pending improvement.
[2016-11-02] MEDS: oxyCODONE ER 20 MG TAB.ER PO SCH ×2 (11:55→20:48)
[2016-11-02] MEDS ORDERED: Vancomycin 1.25 GM in Sodium Chloride 0.9% 500 ML IV SCH (12:00)
[2016-11-02] MEDS ORDERED: Furosemide 40 MG/4 ML VIAL IVPUSH ONE ×3 (12:39→18:54)
[2016-11-02] MEDS ORDERED: Levofloxacin/Dextrose 5%-Water 750 MG in Premix Bag 1 BAG IV SCH (18:30)
--- NOTE | 2016-11-02 20:24 | CONS ---
DATE OF CONSULTATION: DATE OF : 1965 PRIMARY CARE PHYSICIAN: None PCP REASON FOR CONSULTATION: Congestive heart failure. 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 He was seen by oncologist on Monday and there was some concern about his leg swelling, that is why, he was brought to the hospital for management for worsening leg swelling. On Monday, he also complained about the pain on his right shoulder blade which is one of the location of metastasis. Even though he is on multiple pain medications including [place], lidocaine, and fentanyl patch. His pain is not very well controlled and regarding the worsening of the legs edema, he has said that he has had legs edema for a long period of time. However, it got worse over the past few weeks to a month and he admitted that 2 weeks ago. He started taking his medication including the torsemide because of feeling dizzy and pain on his right shoulder blade as well as the low blood pressure noted in the Oncology clinic and his leg has swollen. He stated that his breathing seemed to be okay but, however, he is not moving much. He is not active anyway and he do not want the reason why he is here in the hospital. He denies chest pain. He has seen Dr. Jones in [place] for his heart and last visit was in August, and he was told that everything was okay. At that time, he said that his heart medication has been adjusted few times including recently and apparently he has an echocardiogram done in May 2014, which showed ejection fraction of 25%. However, recent echocardiogram in August 2016, it was noted to have probably a low LVEF, however, it was very poor study. Regarding his atrial fibrillation, he has had atrial fibrillation for a long time and he has said that in 2014 he was referred to see a seo executive in [place], [place]. At that time, he was undergoing for a direct current cardioversion and apparently afterwards he revert back to atrial fibrillation at sometimes. He is supposed to be on Coumadin as it was switched to Xarelto, however, he stopped by himself pretty much about a year ago because he has bruises on the skin, and this was discussed with Dr. Jones per patient report and Dr. Jnoes did not mention anything about discontinuation of anticoagulation. Otherwise, he denies fever. He has a little bit of a cough. No chest pain. No abdominal pain. His appetite has been poor. He is feeling tired. REVIEW OF SYSTEMS: Apart from indicated in the HPI, 12-point system has been negative. CURRENT MEDICATIONS: Include amiodarone 200 mg once a day, Coreg 12.5 mg p.o. twice a day, diltiazem 180 mg once a day, Lasix 40 mg IV twice a day, lisinopril 5 mg once a day, and also vancomycin, and levofloxacin. Management since admission, so he was receiving 2 doses of Lasix 40 IV yesterday and Coreg diltiazem was given as well. However, his blood pressure was on the low side 80 to 90s and normal saline 1.5 L has been given. Today, his blood pressure was slightly improved to range of 90s to 100s. Lasix was on hold. Diltiazem was on hold. Lisinopril was on hold, and Coreg as well. PAST MEDICAL HISTORY: Including history of persistent atrial fibrillation, history of congestive heart failure, cardiomyopathy, hypertension, history of GERD. FAMILY HISTORY: No CAD. SOCIAL HISTORY: Active smoker. No alcohol use. No recreational drug use. PHYSICAL EXAMINATION: VITAL SIGNS: Blood pressure is now 97/57, heart rate of 90 to 100 atrial fibrillation, O2 saturation is low 90s on 2 L of oxygen. His weight is 88. HEENT: JVD is positive. Mild pale and no jaundice. HEART: Totally irregular, systolic murmur. LUNGS: Bilateral crackles and decreased breath sounds bilaterally slightly. ABDOMEN: Soft, nontender. Bowel sounds present. No hepatosplenomegaly. No rebound or tenderness. EXTREMITIES: Legs, 3+ pitting edema on both legs. LABORATORY INVESTIGATION: CBC showed WBC 12, hematocrit 32, platelet is 66. INR 1.1. Sodium 133, potassium 3.9, chloride 99, bicarbonate 22, BUN 41, creatinine 1.7. His baseline creatinine is ranging between 1.3 to 1.7. BNP 1075. Urinalysis is negative. Chest x-ray show bilateral pleural effusions, small, with increasing pulmonary vascular congestion. Echocardiogram in 2014 showed ejection fraction of 25% and echocardiogram in 2017 per my view, LVEF seemed to be improved compared to the previous echocardiogram, but is still abnormal. I would say LVEF estimated 40% with trace MR, trace TR. EKG atrial fibrillation, rate controlled. Troponin has not been checked. ASSESSMENT AND PLAN: This is a 51-year-old male with history of cardiomyopathy, hypertension, persistent atrial fibrillation, gastroesophageal reflux disease, squamous cell carcinoma with bony metastasis, presented to the hospital with worsening peripheral edema and also for pain control for bone metastasis. Regarding his worsening peripheral edema is most likely related to decompensated heart failure triggered by medication noncompliance, and due to the low blood pressure, I will stop lisinopril as well as diltiazem and continue carvedilol 12.5 twice a day as well as amiodarone 200 once a day. Regarding his [id number] score, it should be 2. He should be on anticoagulation technically, however, his platelet has been low and he has a severe bruises when he is on Xarelto, so I think will be reasonable to hold off on that and hold off on anticoagulation. Regarding his heart failure management, I would try to give the low-dose of Lasix 20 mg IV once a day once and see how he does. Hopefully after discontinuing diltiazem as well as lisinopril his blood pressure will be going up. I will also recommend to repeat an echocardiogram. Please feel free to call me with any questions. ROSS / AKUA /[id number]
[2016-11-03] MEDS: Nystatin Susp 100,000 Unit/ML 5 ML UD Cup PO SCH ×4 (06:31→20:19)
[2016-11-03] MEDS: Omeprazole 20 MG Cap.CR PO SCH (06:31)
[2016-11-03] MEDS ORDERED: Piperacillin/Tazobactam 3.375 GM in Sodium Chloride 0.9% 50 ML IV SCH (07:45)
[2016-11-03] MEDS: Bisacodyl 5 MG Tab PO SCH (08:23)
[2016-11-03] MEDS: Amiodarone 200 MG Tab PO SCH (08:23)
[2016-11-03] MEDS: predniSONE 10 MG Tab PO SCH (08:23)
[2016-11-03] MEDS: Docusate Sodium 100 MG Cap PO SCH ×2 (08:24→20:19)
[2016-11-03] MEDS: oxyCODONE ER 20 MG TAB.ER PO SCH ×3 (08:24→20:19)
[2016-11-03] MEDS: Carvedilol 12.5 MG Tab PO SCH ×2 (08:24→18:16)
[2016-11-03] MEDS: Polyethylene Glycol 3350 Powder 17 GM Packet PO SCH (08:26)
[2016-11-03] MEDS: Albuterol 8 GM Inhaler INH PRN (08:27)
[2016-11-03] MEDS ORDERED: Furosemide 40 MG/4 ML VIAL IVPUSH ONE ×2 (08:30→18:15)
--- NOTE | 2016-11-03 10:08 | PCM.PN ---
- General Info Date of Service: 11/03/16 Admission Dx/Problem (Free Text): Admission Diagnosis/Problem Admission Diagnosis/Problem CHF exacerbation Subjective Update: Bony mets pain is being adequately controlled with new regimen of Oxycontin and oxycodone. Still no BM but he has no abdominal pain. Appetite is decreased but he has no N/V. He notes he did get short of breath easily yesterday while ambulating. Still has edema in his legs bilaterally but has no pain in his legs. Was seen by Dr. Hodge, dipper machine operator, yesterday. Functional Status: Reports: pain controlled, tolerating diet, ambulating, urinating - Review of Systems General: Reports: Weakness, Fatigue HEENT: Reports: no symptoms Pulmonary: Reports: shortness of breath Cardiovascular: Reports: No Symptoms Gastrointestinal: Reports: No symptoms, Decreased appetite Genitourinary: Reports: no symptoms Musculoskeletal: Reports: other (diffuse body pain with pain worse at right shoulder blade) Skin: Reports: no symptoms Neurological: Reports: No Symptoms Psychiatric: Reports: no symptoms - Patient Data Vitals - most recent: Last Vital Signs Temp 96.9 F 11/03/16 08:00 Pulse 96 11/03/16 08:24 Resp 14 11/03/16 08:00 BP 97/52 L 11/03/16 08:24 Pulse Ox 91 L 11/03/16 08:00 Weight - most recent: 195 lb 8.8 oz I&O - last 24 hours: Intake & Output 11/02/16 11/03/16 11/03/16 22:59 06:59 14:59 Intake Total 537 800 Output Total 400 750 Balance 137 50 Lab Results last 24 hrs: Laboratory Results - last 24 hr 11/03/16 11/03/16 Range/Units 04:38 04:38 WBC 13.00 H (4.0-11.0) K/uL RBC 3.39 L (4.50-5.90) M/uL Hgb 10.7 L (13.0-17.0) g/dL Hct 34.2 L (38.0-50.0) % MCV 100.9 H (80.0-98.0) fL MCH 31.6 (27.0-32.0) pg MCHC 31.3 (31.0-37.0) g/dL RDW Std Deviation 74.6 H (28.0-62.0) fl RDW Coeff of Saira 21 H (11.0-15.0) % Plt Count 73 L (150-400) K/uL MPV 10.60 (7.40-12.00) fL Neut % (Auto) 91.6 H (48.0-80.0) % Lymph % (Auto) 3.6 L (16.0-40.0) % Moca % (Auto) 4.8 (0.0-15.0) % Eos % (Auto) 0.0 (0.0-7.0) % Baso % (Auto) 0.0 (0.0-1.5) % Neut # (Auto) 11.9 H (1.4-5.7) K/uL Lymph # (Auto) 0.5 L (0.6-2.4) K/uL Moca # (Auto) 0.6 (0.0-0.8) K/uL Eos # (Auto) 0.0 (0.0-0.7) K/uL Baso # (Auto) 0.0 (0.0-0.1) K/uL Nucleated RBC % 0.8 /100WBC Nucleated RBCs # 0 K/uL Sodium 132 L (136-146) mmol/L Potassium 3.8 (3.5-5.1) mmol/L Chloride 98 (98-110) mmol/L Carbon Dioxide 20 L (21-31) mmol/L BUN 45 H (6.0-23.0) mg/dL Creatinine 1.9 H (0.6-1.5) mg/dL Est Cr Clr Drug Dosing 44.96 mL/min Estimated GFR (MDRD) 37.3 ml/min Glucose 107 (60-110) mg/dL Calcium 8.1 L (8.8-10.8) mg/dL Magnesium 2.0 (1.5-2.3) mEq/L Romero Results last 24 hrs: Microbiology 10/31/16 18:25 Aerobic Blood Culture - Preliminary Blood - Venous - Lab Draw NO GROWTH AFTER 2 DAYS Anaerobic Blood Culture - Preliminary NO GROWTH AFTER 2 DAYS 10/31/16 16:19 Aerobic Blood Culture - Preliminary Blood - Venous NO GROWTH AFTER 2 DAYS Anaerobic Blood Culture - Final 10/31/16 19:10 Urine Culture - Final Urine, Clean Catch MIXED REYNALDO 1,000-10,000 CFU/ML Med Orders - Current: Current Medications Acetaminophen (Tylenol) 650 mg PO Q4H PRN PRN Reason: Pain (Mild 1-3)/fever Albuterol (Proventil Neb Soln) 2.5 mg NEB Q4HRRT PRN PRN Reason: Wheezing Last Admin: 11/02/16 09:54 Dose: 2.5 mg Albuterol (Ventolin Hfa) 0 gm INH Q4H PRN PRN Reason: Shortness Of Breath/wheezing Last Admin: 11/03/16 08:27 Dose: 2 puff Amiodarone HCl (Cordarone) 200 mg PO DAILY [facility] Last Admin: 11/03/16 08:23 Dose: 200 mg Bisacodyl (Dulcolax) 5 mg PO DAILY [facility] Last Admin: 11/03/16 08:23 Dose: 5 mg Carvedilol (Coreg) 12.5 mg PO BIDMEALS [facility] Last Admin: 11/03/16 08:24 Dose: Not Given Cyclobenzaprine HCl (Flexeril) 5 mg PO TID PRN PRN Reason: Spasms Docusate Sodium (Colace) 100 mg PO BID [facility] Last Admin: 11/03/16 08:24 Dose: 100 mg Sodium Chloride (Normal Saline) 500 mls @ 499 mls/hr IV Q2HR PRN PRN Reason: HYPOTENSION Last Admin: 11/01/16 23:45 Dose: 499 mls/hr Sodium Chloride (Normal Saline) 500 mls @ 499 mls/hr IV .BOLUS [facility] Last Admin: 11/02/16 02:13 Dose: 499 mls/hr Vancomycin HCl 1.25 gm/ Sodium (Chloride) 250 mls @ 166.667 mls/hr IV Q18H [facility] Last Admin: 11/03/16 05:55 Dose: 166.667 mls/hr Levofloxacin/Dextrose 750 mg/ (Premix) 150 mls @ 100 mls/hr IV Q48H [facility] Cefepime HCl 2 gm/ Premix 50 mls @ 100 mls/hr IV Q8H [facility] Nystatin (Mycostatin) 5 ml PO QIDACANDBED [facility] Last Admin: 11/03/16 06:31 Dose: 5 ml Omeprazole (Omeprazole) 20 mg PO ACBREAKFAST [facility] Last Admin: 11/03/16 06:31 Dose: 20 mg Ondansetron HCl (Zofran) 4 mg IVPUSH Q4H PRN PRN Reason: Nausea Oxycodone HCl (Oxycontin) 40 mg PO Q12HR [facility] Last Admin: 11/03/16 08:24 Dose: 40 mg Oxycodone HCl (Oxycodone) 10 mg PO Q3H PRN PRN Reason: Pain Polyethylene Glycol (Miralax) 17 gm PO DAILY [facility] Last Admin: 11/03/16 08:26 Dose: 17 gm Prednisone (Prednisone) 10 mg PO DAILY [facility] Last Admin: 11/03/16 08:23 Dose: 10 mg Vancomycin HCl (Pharmacy To Dose - Vancomycin) 1 dose .XX ASDIRECTED [facility] Discontinued Medications Hydrocodone Bitart/Acetaminophen ([place] 325-5 Mg) 2 tab PO Q4H PRN PRN Reason: Pain (moderate 4-6) Last Admin: 11/02/16 03:35 Dose: 2 tab Bisacodyl (Dulcolax) 5 mg PO DAILY PRN PRN Reason: Constipation Diltiazem HCl (Cardizem Cd) 180 mg PO DAILY [facility] Last Admin: 11/02/16 09:15 Dose: Not Given Docusate Sodium (Colace) 100 mg PO BID PRN PRN Reason: Constipation Last Admin: 11/01/16 20:24 Dose: 100 mg Enoxaparin Sodium (Lovenox) 40 mg SUBCUT Q24H [facility] Last Admin: 11/01/16 17:31 Dose: 40 mg Fentanyl (Duragesic) 50 mcg TRDERM Q72H [facility] Last Admin: 10/31/16 18:02 Dose: 50 mcg Furosemide (Lasix) 40 mg IVPUSH Q12H [facility] Last Admin: 11/02/16 05:40 Dose: Not Given Furosemide (Lasix) 40 mg IVPUSH NOW ONE Stop: 11/02/16 12:40 Last Admin: 11/02/16 13:03 Dose: Not Given Furosemide (Lasix) 20 mg IVPUSH NOW ONE Stop: 11/02/16 12:51 Last Admin: 11/02/16 13:14 Dose: 20 mg Furosemide (Lasix) 40 mg IVPUSH NOW ONE Stop: 11/02/16 18:55 Last Admin: 11/02/16 19:27 Dose: 40 mg Furosemide (Lasix) 40 mg IVPUSH NOW ONE Stop: 11/03/16 08:31 Last Admin: 11/03/16 08:25 Dose: 40 mg Sodium Chloride (Normal Saline) 1,000 mls @ 75 mls/hr IV ASDIRECTED [facility] Levofloxacin/Dextrose 750 mg/ (Premix) 150 mls @ 100 mls/hr IV Q24H [facility] Last Admin: 10/31/16 20:42 Dose: 100 mls/hr Levofloxacin/Dextrose 750 mg/ (Premix) 150 mls @ 100 mls/hr IV Q48H [facility] Vancomycin HCl 1.25 gm/ Sodium (Chloride) 500 mls @ 333.333 mls/hr IV Q18H [facility] Vancomycin HCl 1.25 gm/ Sodium (Chloride) 250 mls @ 166.667 mls/hr IV Q18H [facility] Piperacillin Sod/Tazobactam (Sod 3.375 gm/ Sodium Chloride) 50 mls @ 100 mls/ hr IV Q6H [facility] Last Admin: 11/03/16 08:03 Dose: 100 mls/hr Ibuprofen (Motrin) 800 mg PO Q8H PRN PRN Reason: Pain Last Admin: 11/02/16 10:19 Dose: 800 mg Levofloxacin (Levaquin) 750 mg PO Q24H [facility] Last Admin: 11/01/16 17:31 Dose: 750 mg Lisinopril (Prinivil) 20 mg PO DAILY [facility] Last Admin: 11/01/16 08:07 Dose: Not Given Lisinopril (Prinivil) 5 mg PO DAILY [facility] Last Admin: 11/02/16 09:16 Dose: Not Given Nystatin (Mycostatin) 5 ml PO QIDACANDBED [facility] Lidocaine 5% Patch 1 each TOP DAILY [facility] Last Admin: 11/01/16 09:44 Dose: Not Given Polyethylene Glycol (Miralax) 17 gm PO DAILY PRN PRN Reason: Constipation - Exam Quality Assessment: supplemental oxygen (2L nasal cannula), DVT prophylaxis (SCD 's) General: alert, oriented, cooperative, no acute distress HEENT: Other (oral thrush appears improved) Neck: supple, JVD Lungs: Normal respiratory effort, Crackles (in all lung rivera) Cardiovascular: Regular Rate, Regular Rhythm Abdomen: bowel sounds present, soft, no tenderness, no distension Extremities: no edema, no calf tenderness Peripheral Pulses: 2+: radial (L), radial (R) Skin: warm, dry, intact Neurological: no new focal deficit Psy/Mental Status: alert, normal affect, normal mood - Problem List & Annotations (1) CHF, Congestive heart failure SNOMED Code(s): 10138592 Code(s): I50.9 - HEART FAILURE, UNSPECIFIED Status: Acute Current Visit: No (2) Lung cancer SNOMED Code(s): 256858873 Code(s): C34.90 - MALIGNANT NEOPLASM OF UNSP PART OF UNSP BRONCHUS OR LUNG Status: Acute Current Visit: No Qualifiers: Laterality: unspecified laterality Lung location: unspecified part of lung Qualified Code(s): C34.90 - Malignant neoplasm of unspecified part of unspecified bronchus or lung (3) Pneumonia SNOMED Code(s): 682873446 Code(s): J18.9 - PNEUMONIA, UNSPECIFIED ORGANISM Status: Acute Current Visit: No - Problem List Review Problem List Initiated/Reviewed/Updated: Yes - My Orders Last 24 Hours: My Active Orders 11/02/16 09:51 Urinary Catheter Assessment [RC] ASDIRECTED 11/02/16 09:57 Urinary Catheter Assessment [RC] ASDIRECTED 11/02/16 10:00 Martinez Catheter Insertion [Insert Urinary Catheter] [OM.PC] Q24H Insert Urinary Catheter [OM.PC] Q24H Bisacodyl [Dulcolax] 5 mg PO DAILY Docusate Sodium [Colace] 100 mg PO BID Polyethylene Glycol 3350 [MiraLAX] 17 gm PO DAILY 11/02/16 11:00 oxyCODONE 10 mg PO Q3H PRN oxyCODONE ER [OxyCONTIN] 40 mg PO Q12HR 11/02/16 11:15 Consult to Physician [CONS] Routine Vancomycin Pharmacy to Dose [Pharmacy to Dose - Vancomycin] 1 dose .XX ASDIRECTED 11/02/16 11:16 Notify Provider Consults [RC] ASDIRECTED 11/02/16 12:00 Vancomycin 1.25 gm Sodium Chloride 0.9% [Normal Saline] 250 ml IV Q18H 11/03/16 08:30 Cefepime [Maxipime in D5W 2 GM/50 ML] 2 gm Premix Bag 1 bag IV Q8H 11/03/16 09:03 Chest 2V [CR] Routine 11/03/16 17:30 Levofloxacin/Dextrose 5%-Water [Levaquin in D5W 750 MG/150 ML] 750 mg Premix Bag 1 bag IV Q48H 11/05/16 17:30 VANCOMYCIN TROUGH [CHEM] Routine - Plan Plan:: 51 year old male admitted with severe peripheral edema secondary to CHF 1. CHF exacerbation with peripheral edema -Given 40mg IV lasix ONETIME by Dr. Rivera this am. Closely monitoring BUN and creatinine. patient is +1.3L since admission. -Tried contacting patients dipper machine operator in [place], Dr. Jones but he was not available. -ECHO results are pending 2. Community acquired pneumonia: -WBC count stable but still elevated. Elevation may be due to daily prednisone. Continue levaquin. Continue IV Vancomycin. Zosyn d/c secondary to worsening BUN and creatinine. Cefipime started in place. -CXR shows right lower lobe pneumonia. Repeat CXR ordered -blood culture negative x2 day -Albuterol PRN shortness of breath and wheezing. 3. Atrial fibrillation: -continue home medications of amiodarone. Diltiazem has been d/c by dipper machine operator -magnesium is 2 4. Lung cancer with bony mets: -Continue [place], Oxycontin 40mg BID and Oxycodone 10mg q4hrs PRN breakthrough pain. -Motrin d/c secondary to worsening kidney function -will be seen by his oncologist, Dr. Gill, today. 5. Acute kidney injury -Bun and creatinine continue to worsen. Zosyn and motrin have been d/c secondary to this. -no fluids are being given secondary to CHF (EF 25%) and the patient already being fluid overloaded. He is receiving intermittent doses of prn IV Lasix to help with his lower extremity edema but this could be contributing to his worsening kidney function. I spoke with the patient in regards to possible transfer to [place] where his dipper machine operator is and where he could be seen by a Special Order Jeweler. Patient is open to this but wants to be taken there by family. No ambulance. Prior to this admission, the patient and his spoke with Hospice and a plan was put in place for the patient to go home on home health when discharged and to be transitioned over to hospice if needed. Patient understands that this is an option as well. Disposition: 2-4 days pending improvement.
[2016-11-03] MEDS: Cefepime 2 GM in Premix Bag 1 BAG IV SCH ×3 (10:15→19:15)
[2016-11-03] MEDS: Ondansetron 4 MG/2 ML SDV IVPUSH PRN ×2 (10:15→20:15)
--- NOTE | 2016-11-03 11:27 | PCM.PN ---
- General Info Date of Service: 11/03/16 Admission Dx/Problem (Free Text): 51M hx persistent afib cardiomyopathy with decompensated HF< squamouc cell carcinoma, with bone metastasis - Review of Systems General: Reports: Weakness HEENT: Reports: no symptoms Pulmonary: Reports: no symptoms Cardiovascular: Reports: No Symptoms Gastrointestinal: Reports: No symptoms Genitourinary: Reports: no symptoms Musculoskeletal: Reports: no symptoms Skin: Reports: no symptoms Neurological: Reports: No Symptoms Psychiatric: Reports: no symptoms - Patient Data Vitals - most recent: Last Vital Signs Temp 36.1 C 11/03/16 08:00 Pulse 96 11/03/16 08:24 Resp 14 11/03/16 08:00 BP 97/52 L 11/03/16 08:24 Pulse Ox 91 L 11/03/16 08:00 Weight - most recent: 88.7 kg I&O - last 24 hours: Intake & Output 11/02/16 11/03/16 11/03/16 22:59 06:59 14:59 Intake Total 537 800 50 Output Total 400 750 Balance 137 50 50 Lab Results last 24 hrs: Laboratory Results - last 24 hr 11/03/16 11/03/16 Range/Units 04:38 04:38 WBC 13.00 H (4.0-11.0) K/uL RBC 3.39 L (4.50-5.90) M/uL Hgb 10.7 L (13.0-17.0) g/dL Hct 34.2 L (38.0-50.0) % MCV 100.9 H (80.0-98.0) fL MCH 31.6 (27.0-32.0) pg MCHC 31.3 (31.0-37.0) g/dL RDW Std Deviation 74.6 H (28.0-62.0) fl RDW Coeff of Saira 21 H (11.0-15.0) % Plt Count 73 L (150-400) K/uL MPV 10.60 (7.40-12.00) fL Neut % (Auto) 91.6 H (48.0-80.0) % Lymph % (Auto) 3.6 L (16.0-40.0) % [place] % (Auto) 4.8 (0.0-15.0) % Eos % (Auto) 0.0 (0.0-7.0) % Baso % (Auto) 0.0 (0.0-1.5) % Neut # (Auto) 11.9 H (1.4-5.7) K/uL Lymph # (Auto) 0.5 L (0.6-2.4) K/uL [place] # (Auto) 0.6 (0.0-0.8) K/uL Eos # (Auto) 0.0 (0.0-0.7) K/uL Baso # (Auto) 0.0 (0.0-0.1) K/uL Nucleated RBC % 0.8 /100WBC Nucleated RBCs # 0 K/uL Sodium 132 L (136-146) mmol/L Potassium 3.8 (3.5-5.1) mmol/L Chloride 98 (98-110) mmol/L Carbon Dioxide 20 L (21-31) mmol/L BUN 45 H (6.0-23.0) mg/dL Creatinine 1.9 H (0.6-1.5) mg/dL Est Cr Clr Drug Dosing 44.96 mL/min Estimated GFR (MDRD) 37.3 ml/min Glucose 107 (60-110) mg/dL Calcium 8.1 L (8.8-10.8) mg/dL Magnesium 2.0 (1.5-2.3) mEq/L Romero Results last 24 hrs: Microbiology 10/31/16 18:25 Aerobic Blood Culture - Preliminary Blood - Venous - Lab Draw NO GROWTH AFTER 2 DAYS Anaerobic Blood Culture - Preliminary NO GROWTH AFTER 2 DAYS 10/31/16 16:19 Aerobic Blood Culture - Preliminary Blood - Venous NO GROWTH AFTER 2 DAYS Anaerobic Blood Culture - Final 10/31/16 19:10 Urine Culture - Final Urine, Clean Catch MIXED REYNALDO 1,000-10,000 CFU/ML Med Orders - Current: Current Medications Acetaminophen (Tylenol) 650 mg PO Q4H PRN PRN Reason: Pain (Mild 1-3)/fever Albuterol (Proventil Neb Soln) 2.5 mg NEB Q4HRRT PRN PRN Reason: Wheezing Last Admin: 11/02/16 09:54 Dose: 2.5 mg Albuterol (Ventolin Hfa) 0 gm INH Q4H PRN PRN Reason: Shortness Of Breath/wheezing Last Admin: 11/03/16 08:27 Dose: 2 puff Amiodarone HCl (Cordarone) 200 mg PO DAILY [facility] Last Admin: 11/03/16 08:23 Dose: 200 mg Bisacodyl (Dulcolax) 5 mg PO DAILY [facility] Last Admin: 11/03/16 08:23 Dose: 5 mg Carvedilol (Coreg) 12.5 mg PO BIDMEALS [facility] Last Admin: 11/03/16 08:24 Dose: Not Given Cyclobenzaprine HCl (Flexeril) 5 mg PO TID PRN PRN Reason: Spasms Docusate Sodium (Colace) 100 mg PO BID [facility] Last Admin: 11/03/16 08:24 Dose: 100 mg Sodium Chloride (Normal Saline) 500 mls @ 499 mls/hr IV Q2HR PRN PRN Reason: HYPOTENSION Last Admin: 11/01/16 23:45 Dose: 499 mls/hr Sodium Chloride (Normal Saline) 500 mls @ 499 mls/hr IV .BOLUS [facility] Last Admin: 11/02/16 02:13 Dose: 499 mls/hr Vancomycin HCl 1.25 gm/ Sodium (Chloride) 250 mls @ 166.667 mls/hr IV Q18H [facility] Last Admin: 11/03/16 05:55 Dose: 166.667 mls/hr Levofloxacin/Dextrose 750 mg/ (Premix) 150 mls @ 100 mls/hr IV Q48H [facility] Cefepime HCl 2 gm/ Premix 50 mls @ 100 mls/hr IV Q8H [facility] Last Admin: 11/03/16 10:15 Dose: 100 mls/hr Nystatin (Mycostatin) 5 ml PO QIDACANDBED [facility] Last Admin: 11/03/16 06:31 Dose: 5 ml Omeprazole (Omeprazole) 20 mg PO ACBREAKFAST [facility] Last Admin: 11/03/16 06:31 Dose: 20 mg Ondansetron HCl (Zofran) 4 mg IVPUSH Q4H PRN PRN Reason: Nausea Last Admin: 11/03/16 10:15 Dose: 4 mg Oxycodone HCl (Oxycontin) 40 mg PO Q12HR [facility] Last Admin: 11/03/16 08:24 Dose: 40 mg Oxycodone HCl (Oxycodone) 10 mg PO Q3H PRN PRN Reason: Pain Polyethylene Glycol (Miralax) 17 gm PO DAILY [facility] Last Admin: 11/03/16 08:26 Dose: 17 gm Prednisone (Prednisone) 10 mg PO DAILY [facility] Last Admin: 11/03/16 08:23 Dose: 10 mg Vancomycin HCl (Pharmacy To Dose - Vancomycin) 1 dose .XX ASDIRECTED [facility] Discontinued Medications Hydrocodone Bitart/Acetaminophen ([place] 325-5 Mg) 2 tab PO Q4H PRN PRN Reason: Pain (moderate 4-6) Last Admin: 11/02/16 03:35 Dose: 2 tab Bisacodyl (Dulcolax) 5 mg PO DAILY PRN PRN Reason: Constipation Diltiazem HCl (Cardizem Cd) 180 mg PO DAILY [facility] Last Admin: 11/02/16 09:15 Dose: Not Given Docusate Sodium (Colace) 100 mg PO BID PRN PRN Reason: Constipation Last Admin: 11/01/16 20:24 Dose: 100 mg Enoxaparin Sodium (Lovenox) 40 mg SUBCUT Q24H [facility] Last Admin: 11/01/16 17:31 Dose: 40 mg Fentanyl (Duragesic) 50 mcg TRDERM Q72H [facility] Last Admin: 10/31/16 18:02 Dose: 50 mcg Furosemide (Lasix) 40 mg IVPUSH Q12H [facility] Last Admin: 11/02/16 05:40 Dose: Not Given Furosemide (Lasix) 40 mg IVPUSH NOW ONE Stop: 11/02/16 12:40 Last Admin: 11/02/16 13:03 Dose: Not Given Furosemide (Lasix) 20 mg IVPUSH NOW ONE Stop: 11/02/16 12:51 Last Admin: 11/02/16 13:14 Dose: 20 mg Furosemide (Lasix) 40 mg IVPUSH NOW ONE Stop: 11/02/16 18:55 Last Admin: 11/02/16 19:27 Dose: 40 mg Furosemide (Lasix) 40 mg IVPUSH NOW ONE Stop: 11/03/16 08:31 Last Admin: 11/03/16 08:25 Dose: 40 mg Sodium Chloride (Normal Saline) 1,000 mls @ 75 mls/hr IV ASDIRECTED [facility] Levofloxacin/Dextrose 750 mg/ (Premix) 150 mls @ 100 mls/hr IV Q24H [facility] Last Admin: 10/31/16 20:42 Dose: 100 mls/hr Levofloxacin/Dextrose 750 mg/ (Premix) 150 mls @ 100 mls/hr IV Q48H [facility] Vancomycin HCl 1.25 gm/ Sodium (Chloride) 500 mls @ 333.333 mls/hr IV Q18H [facility] Vancomycin HCl 1.25 gm/ Sodium (Chloride) 250 mls @ 166.667 mls/hr IV Q18H [facility] Piperacillin Sod/Tazobactam (Sod 3.375 gm/ Sodium Chloride) 50 mls @ 100 mls/ hr IV Q6H [facility] Last Admin: 11/03/16 08:03 Dose: 100 mls/hr Ibuprofen (Motrin) 800 mg PO Q8H PRN PRN Reason: Pain Last Admin: 11/02/16 10:19 Dose: 800 mg Levofloxacin (Levaquin) 750 mg PO Q24H [facility] Last Admin: 11/01/16 17:31 Dose: 750 mg Lisinopril (Prinivil) 20 mg PO DAILY [facility] Last Admin: 11/01/16 08:07 Dose: Not Given Lisinopril (Prinivil) 5 mg PO DAILY [facility] Last Admin: 11/02/16 09:16 Dose: Not Given Nystatin (Mycostatin) 5 ml PO QIDACANDBED [facility] Lidocaine 5% Patch 1 each TOP DAILY [facility] Last Admin: 11/01/16 09:44 Dose: Not Given Polyethylene Glycol (Miralax) 17 gm PO DAILY PRN PRN Reason: Constipation - Exam General: alert, oriented HEENT: Pupils equal, Pupils reactive Neck: supple Lungs: Rales Cardiovascular: Irregular Rhythm Abdomen: soft Extremities: edema Neurological: no new focal deficit EKG INTERPRETATION Rhythm: a-fib - Problem List Review Problem List Initiated/Reviewed/Updated: Yes - My Orders Last 24 Hours: My Active Orders 11/02/16 12:41 Echo Comp wo Cont [US] Routine - Plan Plan:: 51M hx persistent 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 CHF exacerbation with peripheral edema - This could be related to medication non complaint - echo pending, coreg was on hold due to low BP - diltiazem, was D/C'd due to low BP - will try lasix IV - strict I/O, daily weight 2. Community acquired pneumonia: - CXR pending 3. Atrial fibrillation: -continue home medications of amiodarone. Diltiazem has been d/c -with thrombocytopenia, and advanced cancer, I would not recommend ATC for stroke prevention for him 4. Lung cancer with bony mets: -Continue [place], Oxycontin 40mg BID and Oxycodone 10mg q4hrs PRN breakthrough pain. -pain control per primary team 5. Acute kidney injury - watch BUN/Cr Disposition: 2-4 days pending improvement.
--- NOTE | 2016-11-03 11:43 | CR ---
EXAMINATION: Two-view chest (PA and Lateral views). HISTORY: Shortness of breath. FINDINGS: The trachea is midline. The heart is mildly enlarged. There is increasing infiltrate within the righ t perihilar distribution superiorly. There is overall interstitial prominence, grossly unchanged. No pleural effusion or pneumothorax. There is a left-sided ileana catheter. Osseous structures appear unremarkable. IMPRESSION: Increasing right perihilar infiltrate, possibly representing pneumonia.
--- NOTE | 2016-11-03 14:19 | ECHO ---
EXAM DATE: 10/31/16 The echocardiogram report can be seen in this patient's EMR (Electronic Medical Record) in the Reports section. [email or web address]
[2016-11-03] MEDS: oxyCODONE 5 MG Tab PO PRN (16:02)
[2016-11-03] MEDS ORDERED: Levofloxacin/Dextrose 5%-Water 750 MG in Premix Bag 1 BAG IV SCH (17:30)
[2016-11-03] MEDS ORDERED: Azithromycin 500 MG in Sodium Chloride 0.9% 250 ML IV SCH (18:00)
[2016-11-04] MEDS: Cefepime 2 GM in Premix Bag 1 BAG IV SCH ×2 (01:18→10:46)
[2016-11-04] MEDS: Nystatin Susp 100,000 Unit/ML 5 ML UD Cup PO SCH ×4 (06:30→20:42)
[2016-11-04] MEDS: Omeprazole 20 MG Cap.CR PO SCH (06:30)
[2016-11-04] MEDS: Carvedilol 12.5 MG Tab PO SCH ×2 (08:20→16:16)
[2016-11-04] MEDS: oxyCODONE ER 20 MG TAB.ER PO SCH ×2 (08:22→20:41)
[2016-11-04] MEDS: predniSONE 10 MG Tab PO SCH (08:22)
[2016-11-04] MEDS: Amiodarone 200 MG Tab PO SCH (08:22)
[2016-11-04] MEDS: Docusate Sodium 100 MG Cap PO SCH ×2 (08:22→20:41)
[2016-11-04] MEDS: Bisacodyl 5 MG Tab PO SCH ×2 (08:22→10:35)
[2016-11-04] MEDS: Polyethylene Glycol 3350 Powder 17 GM Packet PO SCH (08:23)
--- NOTE | 2016-11-04 10:05 | PCM.PN ---
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 He is being treated with IV Lasix 40 mg twice a day. Dr. Bey our nuclear power reactor operator is following the patient and is recommending treatment with Lasix. Patient reports that his pain is being adequately controlled with the OxyContin and oxycodone. He did have a bowel movement yesterday and feels less distention in his abdomen. His appetite continues to be decreased. Dr. Gill, the patient's oncologist, saw the patient yesterday and recommended that the patient followup with her as outpatient. No other recommendations were made by Dr. Gill. Patient denies any headaches, dizziness, chest pain, palpitations, wheezing, abdominal pain, nausea, vomiting , fever. Functional Status: Reports: pain controlled, tolerating diet, ambulating, urinating - Review of Systems General: Reports: Weakness, Fatigue HEENT: Reports: no symptoms Pulmonary: Reports: shortness of breath Cardiovascular: Reports: Edema (Lower extremities bilaterally.) Gastrointestinal: Reports: Constipation, Decreased appetite. Denies: Nausea, Vomiting Genitourinary: Reports: no symptoms Musculoskeletal: Reports: other (Diffuse body pain secondary to bony metastases. Pain is worse at right shoulder blade.) Skin: Reports: no symptoms Neurological: Reports: No Symptoms Psychiatric: Reports: no symptoms - Patient Data Vitals - most recent: Last Vital Signs Temp 97.6 F 11/04/16 07:49 Pulse 90 11/04/16 08:20 Resp 18 11/04/16 07:49 BP 90/53 L 11/04/16 08:20 Pulse Ox 94 L 11/04/16 07:49 Weight - most recent: 197 lb 12.074 oz I&O - last 24 hours: Intake & Output 11/03/16 11/04/16 11/04/16 22:59 06:59 14:59 Intake Total 1340 576 Output Total 750 1400 Balance 590 -824 Lab Results last 24 hrs: Laboratory Results - last 24 hr 11/04/16 11/04/16 Range/Units 04:21 04:21 WBC 11.38 H (4.0-11.0) K/uL RBC 3.50 L (4.50-5.90) M/uL Hgb 11.2 L (13.0-17.0) g/dL Hct 35.5 L (38.0-50.0) % MCV 101.4 H (80.0-98.0) fL MCH 32.0 (27.0-32.0) pg MCHC 31.5 (31.0-37.0) g/dL RDW Std Deviation 75.3 H (28.0-62.0) fl RDW Coeff of Saira 21 H (11.0-15.0) % Plt Count 68 L (150-400) K/uL MPV 10.00 (7.40-12.00) fL Add Manual Diff YES Neutrophils % (Manual) 91 H (48.0-80.0) % Lymphocytes % (Manual) 3 L (16.0-40.0) % Monocytes % (Manual) 5 (0.0-15.0) % Nucleated RBC % 0.8 /100WBC Absolute Seg Neuts 10.4 Lymphocytes # (Manual) 0.3 Monocytes # (Manual) 0.6 Nucleated RBCs # 0 K/uL Sodium 134 L (136-146) mmol/L Potassium 4.0 (3.5-5.1) mmol/L Chloride 99 (98-110) mmol/L Carbon Dioxide 20 L (21-31) mmol/L BUN 40 H (6.0-23.0) mg/dL Creatinine 1.7 H (0.6-1.5) mg/dL Est Cr Clr Drug Dosing 50.08 mL/min Estimated GFR (MDRD) 42.4 ml/min Glucose 89 (60-110) mg/dL Calcium 7.5 L (8.8-10.8) mg/dL Magnesium 2.3 (1.5-2.3) mEq/L Romero Results last 24 hrs: Microbiology 10/31/16 18:25 Aerobic Blood Culture - Preliminary Blood - Venous - Lab Draw NO GROWTH AFTER 3 DAYS Anaerobic Blood Culture - Preliminary NO GROWTH AFTER 3 DAYS 10/31/16 16:19 Aerobic Blood Culture - Preliminary Blood - Venous NO GROWTH AFTER 3 DAYS Anaerobic Blood Culture - Final Med Orders - Current: Current Medications Acetaminophen (Tylenol) 650 mg PO Q4H PRN PRN Reason: Pain (Mild 1-3)/fever Albuterol (Proventil Neb Soln) 2.5 mg NEB Q4HRRT PRN PRN Reason: Wheezing Last Admin: 11/02/16 09:54 Dose: 2.5 mg Albuterol (Ventolin Hfa) 0 gm INH Q4H PRN PRN Reason: Shortness Of Breath/wheezing Last Admin: 11/03/16 08:27 Dose: 2 puff Amiodarone HCl (Cordarone) 200 mg PO DAILY [facility] Last Admin: 11/04/16 08:22 Dose: 200 mg Bisacodyl (Dulcolax) 5 mg PO DAILY [facility] Last Admin: 11/03/16 08:23 Dose: 5 mg Carvedilol (Coreg) 12.5 mg PO BIDMEALS [facility] Last Admin: 11/04/16 08:20 Dose: Not Given Cyclobenzaprine HCl (Flexeril) 5 mg PO TID PRN PRN Reason: Spasms Docusate Sodium (Colace) 100 mg PO BID [facility] Last Admin: 11/04/16 08:22 Dose: 100 mg Sodium Chloride (Normal Saline) 500 mls @ 499 mls/hr IV Q2HR PRN PRN Reason: HYPOTENSION Last Admin: 11/01/16 23:45 Dose: 499 mls/hr Sodium Chloride (Normal Saline) 500 mls @ 499 mls/hr IV .BOLUS [facility] Last Admin: 11/02/16 02:13 Dose: 499 mls/hr Vancomycin HCl 1.25 gm/ Sodium (Chloride) 250 mls @ 166.667 mls/hr IV Q18H [facility] Last Admin: 11/03/16 23:08 Dose: 166.667 mls/hr Cefepime HCl 2 gm/ Premix 50 mls @ 100 mls/hr IV Q8H [facility] Last Admin: 11/04/16 01:18 Dose: 100 mls/hr Azithromycin 500 mg/ Sodium (Chloride) 250 mls @ 250 mls/hr IV Q24H [facility] Last Admin: 11/03/16 20:02 Dose: 250 mls/hr Nystatin (Mycostatin) 5 ml PO QIDACANDBED [facility] Last Admin: 11/04/16 06:30 Dose: 5 ml Omeprazole (Omeprazole) 20 mg PO ACBREAKFAST [facility] Last Admin: 11/04/16 06:30 Dose: 20 mg Ondansetron HCl (Zofran) 4 mg IVPUSH Q4H PRN PRN Reason: Nausea Last Admin: 11/03/16 20:15 Dose: 4 mg Oxycodone HCl (Oxycontin) 40 mg PO Q12HR [facility] Last Admin: 11/04/16 08:22 Dose: 40 mg Oxycodone HCl (Oxycodone) 10 mg PO Q3H PRN PRN Reason: Pain Last Admin: 11/03/16 16:02 Dose: 10 mg Polyethylene Glycol (Miralax) 17 gm PO DAILY [facility] Last Admin: 11/04/16 08:23 Dose: 17 gm Prednisone (Prednisone) 10 mg PO DAILY [facility] Last Admin: 11/04/16 08:22 Dose: 10 mg Vancomycin HCl (Pharmacy To Dose - Vancomycin) 1 dose .XX ASDIRECTED [facility] Discontinued Medications Hydrocodone Bitart/Acetaminophen ([place] 325-5 Mg) 2 tab PO Q4H PRN PRN Reason: Pain (moderate 4-6) Last Admin: 11/02/16 03:35 Dose: 2 tab Bisacodyl (Dulcolax) 5 mg PO DAILY PRN PRN Reason: Constipation Diltiazem HCl (Cardizem Cd) 180 mg PO DAILY [facility] Last Admin: 11/02/16 09:15 Dose: Not Given Docusate Sodium (Colace) 100 mg PO BID PRN PRN Reason: Constipation Last Admin: 11/01/16 20:24 Dose: 100 mg Enoxaparin Sodium (Lovenox) 40 mg SUBCUT Q24H [facility] Last Admin: 11/01/16 17:31 Dose: 40 mg Fentanyl (Duragesic) 50 mcg TRDERM Q72H [facility] Last Admin: 10/31/16 18:02 Dose: 50 mcg Furosemide (Lasix) 40 mg IVPUSH Q12H [facility] Last Admin: 11/02/16 05:40 Dose: Not Given Furosemide (Lasix) 40 mg IVPUSH NOW ONE Stop: 11/02/16 12:40 Last Admin: 11/02/16 13:03 Dose: Not Given Furosemide (Lasix) 20 mg IVPUSH NOW ONE Stop: 11/02/16 12:51 Last Admin: 11/02/16 13:14 Dose: 20 mg Furosemide (Lasix) 40 mg IVPUSH NOW ONE Stop: 11/02/16 18:55 Last Admin: 11/02/16 19:27 Dose: 40 mg Furosemide (Lasix) 40 mg IVPUSH NOW ONE Stop: 11/03/16 08:31 Last Admin: 11/03/16 08:25 Dose: 40 mg Furosemide (Lasix) 40 mg IVPUSH NOW ONE Stop: 11/03/16 18:16 Last Admin: 11/03/16 19:20 Dose: 40 mg Sodium Chloride (Normal Saline) 1,000 mls @ 75 mls/hr IV ASDIRECTED [facility] Levofloxacin/Dextrose 750 mg/ (Premix) 150 mls @ 100 mls/hr IV Q24H [facility] Last Admin: 10/31/16 20:42 Dose: 100 mls/hr Levofloxacin/Dextrose 750 mg/ (Premix) 150 mls @ 100 mls/hr IV Q48H [facility] Vancomycin HCl 1.25 gm/ Sodium (Chloride) 500 mls @ 333.333 mls/hr IV Q18H [facility] Vancomycin HCl 1.25 gm/ Sodium (Chloride) 250 mls @ 166.667 mls/hr IV Q18H [facility] Levofloxacin/Dextrose 750 mg/ (Premix) 150 mls @ 100 mls/hr IV Q48H [facility] Last Admin: 11/03/16 17:08 Dose: 100 mls/hr Piperacillin Sod/Tazobactam (Sod 3.375 gm/ Sodium Chloride) 50 mls @ 100 mls/ hr IV Q6H [facility] Last Admin: 11/03/16 08:03 Dose: 100 mls/hr Cefepime HCl 2 gm/ Premix 50 mls @ 100 mls/hr IV Q8H [facility] Last Admin: 11/03/16 19:15 Dose: Not Given Ibuprofen (Motrin) 800 mg PO Q8H PRN PRN Reason: Pain Last Admin: 11/02/16 10:19 Dose: 800 mg Levofloxacin (Levaquin) 750 mg PO Q24H [facility] Last Admin: 11/01/16 17:31 Dose: 750 mg Lisinopril (Prinivil) 20 mg PO DAILY [facility] Last Admin: 11/01/16 08:07 Dose: Not Given Lisinopril (Prinivil) 5 mg PO DAILY [facility] Last Admin: 11/02/16 09:16 Dose: Not Given Nystatin (Mycostatin) 5 ml PO QIDACANDBED [facility] Lidocaine 5% Patch 1 each TOP DAILY [facility] Last Admin: 11/01/16 09:44 Dose: Not Given Polyethylene Glycol (Miralax) 17 gm PO DAILY PRN PRN Reason: Constipation - Exam Quality Assessment: supplemental oxygen (2 L nasal cannula), DVT prophylaxis ( Sequential compression devices) General: alert, oriented, cooperative, no acute distress Neck: supple Lungs: Normal respiratory effort, Wheezing (Mild wheezing noted in the lower lung rivera bilaterally. He Sounds significantly better compared to yesterday.) Cardiovascular: Regular Rate, Regular Rhythm Abdomen: bowel sounds present, soft, no tenderness, no distension (Male) Exam: No hernia, Normal inspection, Normal prostate, Circumcised Back Exam: full range of motion Extremities: no calf tenderness, edema (+2 pitting edema in the lower extremities bilaterally.) Peripheral Pulses: 2+: radial (L), radial (R) Skin: warm, dry, intact Neurological: no new focal deficit Psy/Mental Status: alert, normal affect, normal mood - Problem List & Annotations (1) CHF, Congestive heart failure SNOMED Code(s): 87367961 Code(s): I50.9 - HEART FAILURE, UNSPECIFIED Status: Acute Current Visit: No (2) Lung cancer SNOMED Code(s): 299590303 Code(s): C34.90 - MALIGNANT NEOPLASM OF UNSP PART OF UNSP BRONCHUS OR LUNG Status: Acute Current Visit: No Qualifiers: Laterality: unspecified laterality Lung location: unspecified part of lung Qualified Code(s): C34.90 - Malignant neoplasm of unspecified part of unspecified bronchus or lung (3) Pneumonia SNOMED Code(s): 885235303 Code(s): J18.9 - PNEUMONIA, UNSPECIFIED ORGANISM Status: Acute Current Visit: No - Problem List Review Problem List Initiated/Reviewed/Updated: Yes - My Orders Last 24 Hours: My Active Orders 11/03/16 18:00 Azithromycin [Zithromax] 500 mg Sodium Chloride 0.9% [Normal Saline] 250 ml IV Q24H 11/03/16 18:15 Cefepime [Maxipime in D5W 2 GM/50 ML] 2 gm Premix Bag 1 bag IV Q8H 11/05/16 05:11 BASIC METABOLIC PANEL,BMP [CHEM] AM CBC WITH AUTO DIFF [HEME] AM MAGNESIUM [CHEM] AM 11/05/16 17:30 VANCOMYCIN TROUGH [CHEM] Routine - Plan Plan:: 51M hx persistent 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 CHF exacerbation with peripheral edema -Continue with Lasix 40 mg IV twice a day. -ECHO shows ejection fraction of 35-40%. -Patient being followed by Dr. Bey 2. Community acquired pneumonia: - white blood cell count has improved significantly. Continue with cefepime, vancomycin and azithromycin. Levaquin was discontinued secondary to dizziness and lightheadedness and replaced with azithromycin. - repeat chest x-ray yesterday showed worsening pneumonia. Patient sounds clear today with auscultation. -blood culture negative x 3 days -Albuterol PRN shortness of breath and wheezing. 3. Atrial fibrillation: -continue home medications of amiodarone. Diltiazem has been d/c by nuclear power reactor operator. -magnesium is 2.3 4. Lung cancer with bony mets: -Continue with Oxycontin 40mg BID and Oxycodone 10mg q4hrs PRN breakthrough pain. - patient was seen by his oncologist, Dr. Gill, who had no recommendations and was in agreement with current treatment during admission. 5. Acute kidney injury - BUN/creatinine have improved. Disposition: 1-[address] Rivera once to keep the patient for a few more doses of IV Lasix. Patient will go home with home health.
[2016-11-04] MEDS: Albuterol 8 GM Inhaler INH PRN (11:09)
[2016-11-04] MEDS ORDERED: Furosemide 40 MG/4 ML VIAL IVPUSH ONE ×2 (12:21→20:00)
[2016-11-04] MEDS: Azithromycin 500 MG in Sodium Chloride 0.9% 250 ML IV SCH (16:17)
[2016-11-04] MEDS ORDERED: chlorproMAZINE 50 MG/2 ML Amp IM PRN (20:59)
[2016-11-05] MEDS: Nystatin Susp 100,000 Unit/ML 5 ML UD Cup PO SCH ×4 (06:41→20:48)
[2016-11-05] MEDS: Omeprazole 20 MG Cap.CR PO SCH (06:41)
[2016-11-05] MEDS: Carvedilol 12.5 MG Tab PO SCH ×2 (08:00→16:23)
[2016-11-05] MEDS: Ondansetron 4 MG/2 ML SDV IVPUSH PRN ×2 (08:13→16:03)
[2016-11-05] MEDS: Albuterol 8 GM Inhaler INH PRN (08:15)
[2016-11-05] MEDS: Bisacodyl 5 MG Tab PO SCH (09:23)
[2016-11-05] MEDS: Polyethylene Glycol 3350 Powder 17 GM Packet PO SCH (09:23)
[2016-11-05] MEDS: predniSONE 10 MG Tab PO SCH (09:23)
[2016-11-05] MEDS: Docusate Sodium 100 MG Cap PO SCH ×2 (09:23→20:48)
[2016-11-05] MEDS: Amiodarone 200 MG Tab PO SCH (09:23)
[2016-11-05] MEDS: oxyCODONE ER 20 MG TAB.ER PO SCH ×2 (09:29→22:00)
[2016-11-05] MEDS: Cefepime 2 GM in Premix Bag 1 BAG IV SCH (09:32)
--- NOTE | 2016-11-05 14:18 | PCM.PN ---
- General Info Date of Service: 11/05/16 Subjective Update: He reports that he feels much improved compared to admission. He still has a poor appetite. He is taking by mouth fluids. He just states that he does not feel like eating any solid food. He denies any current pain the nurses gave a verbal report that his systolic blood pressure dropped below 80 mmHg last night. His Lasix was held last night and is now discontinued he has received some doses of Lasix but this is most recently been held because of hypotension. - Patient Data Vitals - most recent: Last Vital Signs Temp 96.4 F 11/05/16 11:46 Pulse 101 H 11/05/16 11:46 Resp 20 11/05/16 11:46 BP 92/54 L 11/05/16 11:46 Pulse Ox 93 L 11/05/16 11:46 Weight - most recent: 90.4 kg I&O - last 24 hours: Intake & Output 11/04/16 11/05/16 11/05/16 22:59 06:59 14:59 Intake Total 1500 150 50 Output Total 500 700 Balance 1000 -550 50 Lab Results last 24 hrs: Laboratory Results - last 24 hr 11/05/16 11/05/16 11/05/16 Range/Units 05:55 05:55 11:31 WBC 12.07 H (4.0-11.0) K/uL RBC 3.46 L (4.50-5.90) M/uL Hgb 10.9 L (13.0-17.0) g/dL Hct 35.2 L (38.0-50.0) % MCV 101.7 H (80.0-98.0) fL MCH 31.5 (27.0-32.0) pg MCHC 31.0 (31.0-37.0) g/dL RDW Std Deviation 76.6 H (28.0-62.0) fl RDW Coeff of Saira 21 H (11.0-15.0) % Plt Count 67 L (150-400) K/uL MPV 11.10 (7.40-12.00) fL Neut % (Auto) 90.0 H (48.0-80.0) % Lymph % (Auto) 4.3 L (16.0-40.0) % [place] % (Auto) 5.7 (0.0-15.0) % Eos % (Auto) 0.0 (0.0-7.0) % Baso % (Auto) 0.0 (0.0-1.5) % Neut # (Auto) 10.9 H (1.4-5.7) K/uL Lymph # (Auto) 0.5 L (0.6-2.4) K/uL [place] # (Auto) 0.7 (0.0-0.8) K/uL Eos # (Auto) 0.0 (0.0-0.7) K/uL Baso # (Auto) 0.0 (0.0-0.1) K/uL Nucleated RBC % 0.6 /100WBC Nucleated RBCs # 0 K/uL Sodium 133 L (136-146) mmol/L Potassium 3.8 (3.5-5.1) mmol/L Chloride 98 (98-110) mmol/L Carbon Dioxide 21 (21-31) mmol/L BUN 38 H (6.0-23.0) mg/dL Creatinine 1.5 (0.6-1.5) mg/dL Est Cr Clr Drug Dosing 56.76 mL/min Estimated GFR (MDRD) 49.0 ml/min Glucose 86 (60-110) mg/dL Calcium 7.7 L (8.8-10.8) mg/dL Magnesium 1.9 (1.5-2.3) mEq/L Vancomycin Trough 21.2 H (5-15) ug/mL Romero Results last 24 hrs: Microbiology 10/31/16 18:25 Aerobic Blood Culture - Preliminary Blood - Venous - Lab Draw NO GROWTH AFTER 4 DAYS Anaerobic Blood Culture - Preliminary NO GROWTH AFTER 4 DAYS 10/31/16 16:19 Aerobic Blood Culture - Preliminary Blood - Venous NO GROWTH AFTER 4 DAYS Anaerobic Blood Culture - Final Med Orders - Current: Current Medications Acetaminophen (Tylenol) 650 mg PO Q4H PRN PRN Reason: Pain (Mild 1-3)/fever Albuterol (Proventil Neb Soln) 2.5 mg NEB Q4HRRT PRN PRN Reason: Wheezing Last Admin: 11/02/16 09:54 Dose: 2.5 mg Albuterol (Ventolin Hfa) 0 gm INH Q4H PRN PRN Reason: Shortness Of Breath/wheezing Last Admin: 11/05/16 08:15 Dose: 2 puff Amiodarone HCl (Cordarone) 200 mg PO DAILY [facility] Last Admin: 11/05/16 09:23 Dose: 200 mg Bisacodyl (Dulcolax) 5 mg PO DAILY [facility] Last Admin: 11/05/16 09:23 Dose: 5 mg Carvedilol (Coreg) 12.5 mg PO BIDMEALS [facility] Last Admin: 11/05/16 08:00 Dose: Not Given Chlorpromazine HCl (Thorazine) 50 mg IM Q6H PRN PRN Reason: Hiccups Cyclobenzaprine HCl (Flexeril) 5 mg PO TID PRN PRN Reason: Spasms Docusate Sodium (Colace) 100 mg PO BID [facility] Last Admin: 11/05/16 09:23 Dose: 100 mg Sodium Chloride (Normal Saline) 500 mls @ 499 mls/hr IV Q2HR PRN PRN Reason: HYPOTENSION Last Admin: 11/01/16 23:45 Dose: 499 mls/hr Sodium Chloride (Normal Saline) 500 mls @ 499 mls/hr IV .BOLUS [facility] Last Admin: 11/02/16 02:13 Dose: 499 mls/hr Cefepime HCl 2 gm/ Premix 50 mls @ 100 mls/hr IV Q24H [facility] Last Admin: 11/05/16 09:32 Dose: 100 mls/hr Azithromycin 500 mg/ Sodium (Chloride) 250 mls @ 250 mls/hr IV Q24H [facility] Last Admin: 11/04/16 16:17 Dose: 250 mls/hr Vancomycin HCl 1 gm/ Sodium (Chloride) 250 mls @ 166.667 mls/hr IV Q18H [facility] Nystatin (Mycostatin) 5 ml PO QIDACANDBED [facility] Last Admin: 11/05/16 11:56 Dose: 5 ml Omeprazole (Omeprazole) 20 mg PO ACBREAKFAST [facility] Last Admin: 11/05/16 06:41 Dose: 20 mg Ondansetron HCl (Zofran) 4 mg IVPUSH Q4H PRN PRN Reason: Nausea Last Admin: 11/05/16 08:13 Dose: 4 mg Oxycodone HCl (Oxycontin) 40 mg PO Q12HR [facility] Last Admin: 11/05/16 09:29 Dose: Not Given Oxycodone HCl (Oxycodone) 10 mg PO Q3H PRN PRN Reason: Pain Last Admin: 11/03/16 16:02 Dose: 10 mg Polyethylene Glycol (Miralax) 17 gm PO DAILY [facility] Last Admin: 11/05/16 09:23 Dose: 17 gm Prednisone (Prednisone) 10 mg PO DAILY [facility] Last Admin: 11/05/16 09:23 Dose: 10 mg Vancomycin HCl (Pharmacy To Dose - Vancomycin) 1 dose .XX ASDIRECTED [facility] Discontinued Medications Hydrocodone Bitart/Acetaminophen ([place] 325-5 Mg) 2 tab PO Q4H PRN PRN Reason: Pain (moderate 4-6) Last Admin: 11/02/16 03:35 Dose: 2 tab Bisacodyl (Dulcolax) 5 mg PO DAILY PRN PRN Reason: Constipation Diltiazem HCl (Cardizem Cd) 180 mg PO DAILY [facility] Last Admin: 11/02/16 09:15 Dose: Not Given Docusate Sodium (Colace) 100 mg PO BID PRN PRN Reason: Constipation Last Admin: 11/01/16 20:24 Dose: 100 mg Enoxaparin Sodium (Lovenox) 40 mg SUBCUT Q24H [facility] Last Admin: 11/01/16 17:31 Dose: 40 mg Fentanyl (Duragesic) 50 mcg TRDERM Q72H [facility] Last Admin: 10/31/16 18:02 Dose: 50 mcg Furosemide (Lasix) 40 mg IVPUSH Q12H [facility] Last Admin: 11/02/16 05:40 Dose: Not Given Furosemide (Lasix) 40 mg IVPUSH NOW ONE Stop: 11/02/16 12:40 Last Admin: 11/02/16 13:03 Dose: Not Given Furosemide (Lasix) 20 mg IVPUSH NOW ONE Stop: 11/02/16 12:51 Last Admin: 11/02/16 13:14 Dose: 20 mg Furosemide (Lasix) 40 mg IVPUSH NOW ONE Stop: 11/02/16 18:55 Last Admin: 11/02/16 19:27 Dose: 40 mg Furosemide (Lasix) 40 mg IVPUSH NOW ONE Stop: 11/03/16 08:31 Last Admin: 11/03/16 08:25 Dose: 40 mg Furosemide (Lasix) 40 mg IVPUSH NOW ONE Stop: 11/03/16 18:16 Last Admin: 11/03/16 19:20 Dose: 40 mg Furosemide (Lasix) 40 mg IVPUSH NOW ONE Stop: 11/04/16 12:22 Last Admin: 11/04/16 12:34 Dose: 40 mg Furosemide (Lasix) 40 mg IVPUSH NOW ONE Stop: 11/04/16 20:01 Last Admin: 11/04/16 20:41 Dose: Not Given Sodium Chloride (Normal Saline) 1,000 mls @ 75 mls/hr IV ASDIRECTED [facility] Levofloxacin/Dextrose 750 mg/ (Premix) 150 mls @ 100 mls/hr IV Q24H [facility] Last Admin: 10/31/16 20:42 Dose: 100 mls/hr Levofloxacin/Dextrose 750 mg/ (Premix) 150 mls @ 100 mls/hr IV Q48H [facility] Vancomycin HCl 1.25 gm/ Sodium (Chloride) 500 mls @ 333.333 mls/hr IV Q18H [facility] Vancomycin HCl 1.25 gm/ Sodium (Chloride) 250 mls @ 166.667 mls/hr IV Q18H [facility] Vancomycin HCl 1.25 gm/ Sodium (Chloride) 250 mls @ 166.667 mls/hr IV Q18H [facility] Last Admin: 11/05/16 12:16 Dose: Not Given Levofloxacin/Dextrose 750 mg/ (Premix) 150 mls @ 100 mls/hr IV Q48H [facility] Last Admin: 11/03/16 17:08 Dose: 100 mls/hr Piperacillin Sod/Tazobactam (Sod 3.375 gm/ Sodium Chloride) 50 mls @ 100 mls/ hr IV Q6H [facility] Last Admin: 11/03/16 08:03 Dose: 100 mls/hr Cefepime HCl 2 gm/ Premix 50 mls @ 100 mls/hr IV Q8H [facility] Last Admin: 11/03/16 19:15 Dose: Not Given Cefepime HCl 2 gm/ Premix 50 mls @ 100 mls/hr IV Q8H [facility] Last Admin: 11/04/16 10:46 Dose: 100 mls/hr Azithromycin 500 mg/ Sodium (Chloride) 250 mls @ 250 mls/hr IV Q24H [facility] Last Admin: 11/03/16 20:02 Dose: 250 mls/hr Ibuprofen (Motrin) 800 mg PO Q8H PRN PRN Reason: Pain Last Admin: 11/02/16 10:19 Dose: 800 mg Levofloxacin (Levaquin) 750 mg PO Q24H [facility] Last Admin: 11/01/16 17:31 Dose: 750 mg Lisinopril (Prinivil) 20 mg PO DAILY [facility] Last Admin: 11/01/16 08:07 Dose: Not Given Lisinopril (Prinivil) 5 mg PO DAILY [facility] Last Admin: 11/02/16 09:16 Dose: Not Given Nystatin (Mycostatin) 5 ml PO QIDACANDBED [facility] Lidocaine 5% Patch 1 each TOP DAILY [facility] Last Admin: 11/01/16 09:44 Dose: Not Given Polyethylene Glycol (Miralax) 17 gm PO DAILY PRN PRN Reason: Constipation - Exam General: alert, oriented, cooperative Neck: supple Lungs: Rhonchi, Other (Diffuse expiratory rhonchi greater on the right chest.) Cardiovascular: Other (Monitor shows atrial fibrillation with ventricular response being 90-100 per minute) Abdomen: no tenderness Extremities: no edema - Problem List & Annotations (1) Afib, Atrial fibrillation SNOMED Code(s): 42105133 Code(s): I48.91 - UNSPECIFIED ATRIAL FIBRILLATION Status: Acute Current Visit: No Onset Date: 08/25/14 (2) CHF, Congestive heart failure SNOMED Code(s): 38707331 Code(s): I50.9 - HEART FAILURE, UNSPECIFIED Status: Acute Current Visit: No (3) Lung cancer SNOMED Code(s): 778203219 Code(s): C34.90 - MALIGNANT NEOPLASM OF UNSP PART OF UNSP BRONCHUS OR LUNG Status: Acute Current Visit: No Qualifiers: Laterality: unspecified laterality Lung location: unspecified part of lung Qualified Code(s): C34.90 - Malignant neoplasm of unspecified part of unspecified bronchus or lung (4) Pneumonia SNOMED Code(s): 775212866 Code(s): J18.9 - PNEUMONIA, UNSPECIFIED ORGANISM Status: Acute Current Visit: No - Problem List Review Problem List Initiated/Reviewed/Updated: Yes - My Orders Last 24 Hours: My Active Orders 11/04/16 20:59 chlorproMAZINE [Thorazine] 50 mg IM Q6H PRN - Plan Plan:: 51M hx persistent 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 CHF exacerbation with peripheral edema -Continue with Lasix 40 mg IV twice a day. -ECHO shows ejection fraction of 35-40%. -Patient being followed by Dr. Bey 2. Community acquired pneumonia: - white blood cell count has improved significantly. Continue with cefepime, vancomycin and azithromycin. Levaquin was discontinued secondary to dizziness and lightheadedness and replaced with azithromycin. - repeat chest x-ray yesterday showed worsening pneumonia. Patient sounds clear today with auscultation. -blood culture negative x 3 days -Albuterol PRN shortness of breath and wheezing. 3. Atrial fibrillation: -continue home medications of amiodarone. Diltiazem has been d/c by granular operator. -magnesium is 2.3 4. Lung cancer with bony mets: -Continue with Oxycontin 40mg BID and Oxycodone 10mg q4hrs PRN breakthrough pain. - patient was seen by his oncologist, Dr. Gill, who had no recommendations and was in agreement with current treatment during admission. 5. Acute kidney injury - BUN/creatinine have improved. Disposition: 1-[address] Rivera once to keep the patient for a few more doses of IV Lasix. Patient will go home with home health. 11/05/2016: I reviewed Dr Hook's thorough note from yesterday. Will continue to monitor at least until Monday. Lasix is being held currently because of hypotension. He has plans for further cancer treatment as directed by oncologists, Dr Norwood and Dr Gill. repeat PA/Lat CXR in am tomorrow. Rodrigo Elizondo MD
[2016-11-05] MEDS: Azithromycin 500 MG in Sodium Chloride 0.9% 250 ML IV SCH (18:00)
[2016-11-05] MEDS: oxyCODONE 5 MG Tab PO PRN (19:13)
[2016-11-06] MEDS: oxyCODONE 5 MG Tab PO PRN ×2 (00:55→13:02)
[2016-11-06] MEDS: Omeprazole 20 MG Cap.CR PO SCH (06:40)
[2016-11-06] MEDS: Nystatin Susp 100,000 Unit/ML 5 ML UD Cup PO SCH ×4 (06:40→21:23)
[2016-11-06] MEDS: Ondansetron 4 MG/2 ML SDV IVPUSH PRN ×2 (08:18→21:33)
[2016-11-06] MEDS: Bisacodyl 5 MG Tab PO SCH (08:37)
[2016-11-06] MEDS: predniSONE 10 MG Tab PO SCH (09:39)
[2016-11-06] MEDS: oxyCODONE ER 20 MG TAB.ER PO SCH ×2 (09:39→21:21)
[2016-11-06] MEDS: Carvedilol 12.5 MG Tab PO SCH ×3 (09:40→17:40)
[2016-11-06] MEDS: Polyethylene Glycol 3350 Powder 17 GM Packet PO SCH (09:41)
[2016-11-06] MEDS: Docusate Sodium 100 MG Cap PO SCH ×2 (09:43→21:23)
[2016-11-06] MEDS: Amiodarone 200 MG Tab PO SCH (09:51)
[2016-11-06] MEDS: Cefepime 2 GM in Premix Bag 1 BAG IV SCH (11:23)
--- NOTE | 2016-11-06 11:45 | PCM.PN ---
- General Info Date of Service: 11/06/16 - Review of Systems General: Denies: Fever Cardiovascular: Denies: Chest Pain Gastrointestinal: Denies: Abdominal pain Systems Review Comment:: He has had intermittent vomiting improved with zofran - Patient Data Vitals - most recent: Last Vital Signs Temp 97 F 11/06/16 08:00 Pulse 51 L 11/06/16 09:40 Resp 19 11/06/16 08:00 BP 109/57 L 11/06/16 09:40 Pulse Ox 94 L 11/06/16 08:00 Weight - most recent: 90.435 kg I&O - last 24 hours: Intake & Output 11/05/16 11/06/16 11/06/16 22:59 06:59 14:59 Intake Total 1920 420 250 Output Total 550 Balance 1370 420 250 Lab Results last 24 hrs: Laboratory Results - last 24 hr 11/05/16 11/05/16 11/06/16 Range/Units 08:07 11:31 05:50 WBC 12.98 H (4.0-11.0) K/uL RBC 3.60 L (4.50-5.90) M/uL Hgb 11.5 L (13.0-17.0) g/dL Hct 36.7 L (38.0-50.0) % MCV 101.9 H (80.0-98.0) fL MCH 31.9 (27.0-32.0) pg MCHC 31.3 (31.0-37.0) g/dL RDW Std Deviation 77.3 H (28.0-62.0) fl RDW Coeff of Saira 21 H (11.0-15.0) % Plt Count 76 L (150-400) K/uL MPV 10.50 (7.40-12.00) fL Add Manual Diff YES Neutrophils % (Manual) 94 H (48.0-80.0) % Band Neutrophils % 4 % Lymphocytes % (Manual) 2 L (16.0-40.0) % Nucleated RBC % 0.6 /100WBC Absolute Seg Neuts 12.2 Band Neutrophils # 0.5 Lymphocytes # (Manual) 0.3 Nucleated RBCs # 0 K/uL Sodium (136-146) mmol/L Potassium (3.5-5.1) mmol/L Chloride (98-110) mmol/L Carbon Dioxide (21-31) mmol/L BUN (6.0-23.0) mg/dL Creatinine (0.6-1.5) mg/dL Est Cr Clr Drug Dosing mL/min Estimated GFR (MDRD) ml/min Glucose (60-110) mg/dL POC Glucose 170 H (60-110) mg/dL Calcium (8.8-10.8) mg/dL Vancomycin Trough 21.2 H (5-15) ug/mL 11/06/16 Range/Units 05:50 WBC (4.0-11.0) K/uL RBC (4.50-5.90) M/uL Hgb (13.0-17.0) g/dL Hct (38.0-50.0) % MCV (80.0-98.0) fL MCH (27.0-32.0) pg MCHC (31.0-37.0) g/dL RDW Std Deviation (28.0-62.0) fl RDW Coeff of Saira (11.0-15.0) % Plt Count (150-400) K/uL MPV (7.40-12.00) fL Add Manual Diff Neutrophils % (Manual) (48.0-80.0) % Band Neutrophils % % Lymphocytes % (Manual) (16.0-40.0) % Nucleated RBC % /100WBC Absolute Seg Neuts Band Neutrophils # Lymphocytes # (Manual) Nucleated RBCs # K/uL Sodium 132 L (136-146) mmol/L Potassium 3.9 (3.5-5.1) mmol/L Chloride 96 L (98-110) mmol/L Carbon Dioxide 23 (21-31) mmol/L BUN 40 H (6.0-23.0) mg/dL Creatinine 1.5 (0.6-1.5) mg/dL Est Cr Clr Drug Dosing 56.76 mL/min Estimated GFR (MDRD) 49.0 ml/min Glucose 87 (60-110) mg/dL POC Glucose (60-110) mg/dL Calcium 7.4 L (8.8-10.8) mg/dL Vancomycin Trough (5-15) ug/mL Romero Results last 24 hrs: Microbiology 10/31/16 18:25 Aerobic Blood Culture - Final Blood - Venous - Lab Draw NO GROWTH AFTER 5 DAYS Anaerobic Blood Culture - Final NO GROWTH AFTER 5 DAYS 10/31/16 16:19 Aerobic Blood Culture - Final Blood - Venous NO GROWTH AFTER 5 DAYS Anaerobic Blood Culture - Final Med Orders - Current: Current Medications Acetaminophen (Tylenol) 650 mg PO Q4H PRN PRN Reason: Pain (Mild 1-3)/fever Albuterol (Proventil Neb Soln) 2.5 mg NEB Q4HRRT PRN PRN Reason: Wheezing Last Admin: 11/02/16 09:54 Dose: 2.5 mg Albuterol (Ventolin Hfa) 0 gm INH Q4H PRN PRN Reason: Shortness Of Breath/wheezing Last Admin: 11/05/16 08:15 Dose: 2 puff Amiodarone HCl (Cordarone) 200 mg PO DAILY [facility] Last Admin: 11/06/16 09:51 Dose: Not Given Bisacodyl (Dulcolax) 5 mg PO DAILY [facility] Last Admin: 11/06/16 08:37 Dose: Not Given Carvedilol (Coreg) 12.5 mg PO BIDMEALS [facility] Last Admin: 11/06/16 09:40 Dose: Not Given Chlorpromazine HCl (Thorazine) 50 mg IM Q6H PRN PRN Reason: Hiccups Cyclobenzaprine HCl (Flexeril) 5 mg PO TID PRN PRN Reason: Spasms Docusate Sodium (Colace) 100 mg PO BID [facility] Last Admin: 11/06/16 09:43 Dose: 100 mg Sodium Chloride (Normal Saline) 500 mls @ 499 mls/hr IV Q2HR PRN PRN Reason: HYPOTENSION Last Admin: 11/01/16 23:45 Dose: 499 mls/hr Sodium Chloride (Normal Saline) 500 mls @ 499 mls/hr IV .BOLUS [facility] Last Admin: 11/02/16 02:13 Dose: 499 mls/hr Cefepime HCl 2 gm/ Premix 50 mls @ 100 mls/hr IV Q24H [facility] Last Admin: 11/06/16 11:23 Dose: 100 mls/hr Azithromycin 500 mg/ Sodium (Chloride) 250 mls @ 250 mls/hr IV Q24H [facility] Last Admin: 11/05/16 18:00 Dose: 250 mls/hr Vancomycin HCl 1 gm/ Sodium (Chloride) 250 mls @ 166.667 mls/hr IV Q18H [facility] Last Admin: 11/06/16 09:39 Dose: 166.667 mls/hr Nystatin (Mycostatin) 5 ml PO QIDACANDBED [facility] Last Admin: 11/06/16 06:40 Dose: 5 ml Omeprazole (Omeprazole) 20 mg PO ACBREAKFAST [facility] Last Admin: 11/06/16 06:40 Dose: 20 mg Ondansetron HCl (Zofran) 4 mg IVPUSH Q4H PRN PRN Reason: Nausea Last Admin: 11/06/16 08:18 Dose: 4 mg Oxycodone HCl (Oxycontin) 40 mg PO Q12HR [facility] Last Admin: 11/06/16 09:39 Dose: 40 mg Oxycodone HCl (Oxycodone) 10 mg PO Q3H PRN PRN Reason: Pain Last Admin: 11/06/16 00:55 Dose: 10 mg Polyethylene Glycol (Miralax) 17 gm PO DAILY [facility] Last Admin: 11/06/16 09:41 Dose: Not Given Prednisone (Prednisone) 10 mg PO DAILY [facility] Last Admin: 11/06/16 09:39 Dose: 10 mg Vancomycin HCl (Pharmacy To Dose - Vancomycin) 1 dose .XX ASDIRECTED [facility] Discontinued Medications Hydrocodone Bitart/Acetaminophen (Chaseley 325-5 Mg) 2 tab PO Q4H PRN PRN Reason: Pain (moderate 4-6) Last Admin: 11/02/16 03:35 Dose: 2 tab Bisacodyl (Dulcolax) 5 mg PO DAILY PRN PRN Reason: Constipation Diltiazem HCl (Cardizem Cd) 180 mg PO DAILY [facility] Last Admin: 11/02/16 09:15 Dose: Not Given Docusate Sodium (Colace) 100 mg PO BID PRN PRN Reason: Constipation Last Admin: 11/01/16 20:24 Dose: 100 mg Enoxaparin Sodium (Lovenox) 40 mg SUBCUT Q24H [facility] Last Admin: 11/01/16 17:31 Dose: 40 mg Fentanyl (Duragesic) 50 mcg TRDERM Q72H [facility] Last Admin: 10/31/16 18:02 Dose: 50 mcg Furosemide (Lasix) 40 mg IVPUSH Q12H [facility] Last Admin: 11/02/16 05:40 Dose: Not Given Furosemide (Lasix) 40 mg IVPUSH NOW ONE Stop: 11/02/16 12:40 Last Admin: 11/02/16 13:03 Dose: Not Given Furosemide (Lasix) 20 mg IVPUSH NOW ONE Stop: 11/02/16 12:51 Last Admin: 11/02/16 13:14 Dose: 20 mg Furosemide (Lasix) 40 mg IVPUSH NOW ONE Stop: 11/02/16 18:55 Last Admin: 11/02/16 19:27 Dose: 40 mg Furosemide (Lasix) 40 mg IVPUSH NOW ONE Stop: 11/03/16 08:31 Last Admin: 11/03/16 08:25 Dose: 40 mg Furosemide (Lasix) 40 mg IVPUSH NOW ONE Stop: 11/03/16 18:16 Last Admin: 11/03/16 19:20 Dose: 40 mg Furosemide (Lasix) 40 mg IVPUSH NOW ONE Stop: 11/04/16 12:22 Last Admin: 11/04/16 12:34 Dose: 40 mg Furosemide (Lasix) 40 mg IVPUSH NOW ONE Stop: 11/04/16 20:01 Last Admin: 11/04/16 20:41 Dose: Not Given Sodium Chloride (Normal Saline) 1,000 mls @ 75 mls/hr IV ASDIRECTED [facility] Levofloxacin/Dextrose 750 mg/ (Premix) 150 mls @ 100 mls/hr IV Q24H [facility] Last Admin: 10/31/16 20:42 Dose: 100 mls/hr Levofloxacin/Dextrose 750 mg/ (Premix) 150 mls @ 100 mls/hr IV Q48H [facility] Vancomycin HCl 1.25 gm/ Sodium (Chloride) 500 mls @ 333.333 mls/hr IV Q18H [facility] Vancomycin HCl 1.25 gm/ Sodium (Chloride) 250 mls @ 166.667 mls/hr IV Q18H [facility] Vancomycin HCl 1.25 gm/ Sodium (Chloride) 250 mls @ 166.667 mls/hr IV Q18H [facility] Last Admin: 11/05/16 12:16 Dose: Not Given Levofloxacin/Dextrose 750 mg/ (Premix) 150 mls @ 100 mls/hr IV Q48H [facility] Last Admin: 11/03/16 17:08 Dose: 100 mls/hr Piperacillin Sod/Tazobactam (Sod 3.375 gm/ Sodium Chloride) 50 mls @ 100 mls/ hr IV Q6H [facility] Last Admin: 11/03/16 08:03 Dose: 100 mls/hr Cefepime HCl 2 gm/ Premix 50 mls @ 100 mls/hr IV Q8H [facility] Last Admin: 11/03/16 19:15 Dose: Not Given Cefepime HCl 2 gm/ Premix 50 mls @ 100 mls/hr IV Q8H [facility] Last Admin: 11/04/16 10:46 Dose: 100 mls/hr Azithromycin 500 mg/ Sodium (Chloride) 250 mls @ 250 mls/hr IV Q24H [facility] Last Admin: 11/03/16 20:02 Dose: 250 mls/hr Ibuprofen (Motrin) 800 mg PO Q8H PRN PRN Reason: Pain Last Admin: 11/02/16 10:19 Dose: 800 mg Levofloxacin (Levaquin) 750 mg PO Q24H [facility] Last Admin: 11/01/16 17:31 Dose: 750 mg Lisinopril (Prinivil) 20 mg PO DAILY [facility] Last Admin: 11/01/16 08:07 Dose: Not Given Lisinopril (Prinivil) 5 mg PO DAILY [facility] Last Admin: 11/02/16 09:16 Dose: Not Given Nystatin (Mycostatin) 5 ml PO QIDACANDBED [facility] Lidocaine 5% Patch 1 each TOP DAILY [facility] Last Admin: 11/01/16 09:44 Dose: Not Given Polyethylene Glycol (Miralax) 17 gm PO DAILY PRN PRN Reason: Constipation - Exam General: alert, cooperative Lungs: Clear to auscultation, Normal respiratory effort Abdomen: soft, no tenderness - Problem List & Annotations (1) Afib, Atrial fibrillation SNOMED Code(s): 35658178 Code(s): I48.91 - UNSPECIFIED ATRIAL FIBRILLATION Status: Acute Current Visit: No Onset Date: 08/25/14 (2) CHF, Congestive heart failure SNOMED Code(s): 81405109 Code(s): I50.9 - HEART FAILURE, UNSPECIFIED Status: Acute Current Visit: No (3) Lung cancer SNOMED Code(s): 816825484 Code(s): C34.90 - MALIGNANT NEOPLASM OF UNSP PART OF UNSP BRONCHUS OR LUNG Status: Acute Current Visit: No Qualifiers: Laterality: unspecified laterality Lung location: unspecified part of lung Qualified Code(s): C34.90 - Malignant neoplasm of unspecified part of unspecified bronchus or lung (4) Pneumonia SNOMED Code(s): 147084291 Code(s): J18.9 - PNEUMONIA, UNSPECIFIED ORGANISM Status: Acute Current Visit: No - Problem List Review Problem List Initiated/Reviewed/Updated: Yes - My Orders Last 24 Hours: My Active Orders 11/05/16 16:20 Discontinue Telemetry Monitoring [Cardiac Monitoring Discontinue] [RC] Click To Edit 11/06/16 07:00 CXR [Chest 2V] [CR] Routine - Plan Plan:: 51M hx persistent 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 CHF exacerbation with peripheral edema -Continue with Lasix 40 mg IV twice a day. -ECHO shows ejection fraction of 35-40%. -Patient being followed by Dr. Rivera. 2. Community acquired pneumonia: - white blood cell count has improved significantly. Continue with cefepime, vancomycin and azithromycin. Levaquin was discontinued secondary to dizziness and lightheadedness and replaced with azithromycin. - repeat chest x-ray yesterday showed worsening pneumonia. Patient sounds clear today with auscultation. -blood culture negative x 3 days -Albuterol PRN shortness of breath and wheezing. 3. Atrial fibrillation: -continue home medications of amiodarone. Diltiazem has been d/c by pantograph watcher. -magnesium is 2.3 4. Lung cancer with bony mets: -Continue with Oxycontin 40mg BID and Oxycodone 10mg q4hrs PRN breakthrough pain. - patient was seen by his oncologist, Dr. Gill, who had no recommendations and was in agreement with current treatment during admission. 5. Acute kidney injury - BUN/creatinine have improved. Disposition: 1-[address] Rivera once to keep the patient for a few more doses of IV Lasix. Patient will go home with home health. 11/05/2016: I reviewed Dr Hook's thorough note from yesterday. Will continue to monitor at least until Monday. Lasix is being held currently because of hypotension. He has plans for further cancer treatment as directed by oncologists, Dr Norwood and Dr Gill. repeat PA/Lat CXR in am tomorrow. Rodrigo Elizondo MD 11/06/2016 CXR shows marked improvement. He is stabilizing. Will monitor for emesis and treat with zofran. If not improving may need abdominal imaging. possible discharge tomorrow. MD Gail
[2016-11-06] MEDS: Azithromycin 500 MG in Sodium Chloride 0.9% 250 ML IV SCH (16:18)
[2016-11-06] MEDS ORDERED: Sodium Chloride 0.9% 500 ML IV ONE (18:15)
--- NOTE | 2016-11-06 19:19 | PCM.SN ---
- Free Text/Narrative Note: I spoke with the patient and daughter about possible discharge to [facility] in two or three days. He had a hypotensive episode this evening treated with intravenous crystalloid bolus.
[2016-11-06] MEDS ORDERED: LORazepam 2 MG/ML MDV IVPUSH PRN (20:02)
[2016-11-07] MEDS: oxyCODONE 5 MG Tab PO PRN ×2 (04:26→14:08)
[2016-11-07] MEDS: Ondansetron 4 MG/2 ML SDV IVPUSH PRN ×3 (04:30→21:12)
[2016-11-07] MEDS: Omeprazole 20 MG Cap.CR PO SCH (07:16)
[2016-11-07] MEDS: Nystatin Susp 100,000 Unit/ML 5 ML UD Cup PO SCH ×4 (07:16→21:08)
[2016-11-07] MEDS: Amiodarone 200 MG Tab PO SCH (08:47)
[2016-11-07] MEDS: Docusate Sodium 100 MG Cap PO SCH ×2 (08:50→21:08)
[2016-11-07] MEDS: oxyCODONE ER 20 MG TAB.ER PO SCH ×2 (08:50→21:05)
[2016-11-07] MEDS: Bisacodyl 5 MG Tab PO SCH (08:50)
[2016-11-07] MEDS: Polyethylene Glycol 3350 Powder 17 GM Packet PO SCH (08:51)
[2016-11-07] MEDS: predniSONE 10 MG Tab PO SCH (08:51)
[2016-11-07] MEDS: Carvedilol 12.5 MG Tab PO SCH ×2 (08:54→16:44)
[2016-11-07] MEDS ORDERED: Metoprolol Tartrate 5 MG/5 ML SDV IVPUSH PRN (09:36)
[2016-11-07] MEDS: Cefepime 2 GM in Premix Bag 1 BAG IV SCH (09:37)
--- NOTE | 2016-11-07 10:44 | CR ---
EXAM DATE: 10/31/16 PATIENT'S AGE: 51 Patient: EMILE EVANS Facility: [place], [place] Site . Site : 1965 Study: XRay Chest [id number]/23/2017 8:18:08 AM Ordering Physician: Garrick Foster Final Report: INDICATION: pneumonia, follow up HISTORY: Pneumonia follow up. COMPARISON: 10/31/2016. 11/03/2016. TECHNIQUE: Chest, 2 views. FINDINGS: There is a left subclavian Port-A-Cath, its tip in the SVC. Enlargement of the cardiac silhouette. There is fullness about the right pulmonary hilum, stable, and persistent interstitial type opacities in the right upper and right lower lobes. Overall, opacities have improved when compared with 11/03/2016, and are similar to the study from 10/31/2016. Vague airspace opacity about the left pulmonary hilum is also unchanged. No pneumothorax. IMPRESSION: 1. Interval improvement in the opacities about the right lung when compared with 11/03/2016. This may represent resolving pneumonia. 2. Cardiomegaly, stable. Enlargement of the right pulmonary hilum may indicate pulmonary arterial hypertension or lymphadenopathy. There is no thickening of right paratracheal stripe. Dictated by Carlos Enrique Dove MD @ 11/06/2016 8:20:41 AM Dictated by: Carlos Enrique Dove MD @ 11/06/2016 08:20:50 (Electronic Signature) Report Signed by Proxy and Original Signed Document filed in the Medical Record. [facility]
--- NOTE | 2016-11-07 11:38 | CT ---
EXAM DATE: 10/31/16 PATIENT'S AGE: 51 Patient: EMILE EVANS Facility: [place], [place] Site . Site : 1965 Study: CT Abdomen/Pelvis [id number]/24/2017 11:08:34 AM Ordering Physician: Garrick Foster Final Report: INDICATION: ELEVATED LIVER ENZYMES HX CANCER HX PERICARDIAL EFFUSION HISTORY: Elevated liver transaminases. Pericardial effusion. COMPARISON: CT of the abdomen and pelvis 02/03/2015. CT of the chest 08/22/2016. TECHNIQUE: CT of the abdomen and pelvis without contrast. Coronal/sagittal reconstruction images. FINDINGS: Lung bases: There is a nodular and complex pericardial effusion, with abnormal soft tissue extending into the epicardial fat and chest wall. A malignant effusion is suspected. This finding is new from 02/03/2015. A large, circumferential pericardial effusion was present on the chest CT from 08/22/2016. Small, bilateral pleural effusions. These appear non loculated. Interstitial and ground -glass opacities at the lung bases, which could be infectious or neoplastic in nature. These findings were present on the recent chest CT. Atelectasis at the left lung base. No basilar pneumothorax. Abdomen/pelvis: No solid hepatic mass. Hyperdense gallbladder lumen. This could be vicarious excretion of contrast, if there has been recent contrast exposure. There is no dilation of intrahepatic biliary radicals. The extrahepatic common duct is normal in caliber. There is no pancreatic mass. Mild perinephric stranding. No solid renal mass. No adrenal mass. Spleen is not enlarged. There is no obstructive urolith. Pelvic phleboliths are present. There is no wall thickening within the small bowel or colon. No perienteric edema. No small bowel obstruction. No inflammatory changes about the appendix. No abdominal aortic aneurysm. No abdominal or pelvic lymphadenopathy by size criteria. Mild edema present in the subcutaneous tissues of both proximal lower extremities. Minimal stranding is present adjacent to the 2nd portion of the duodenum. The bone windows demonstrate thickening of the left inferior pubic ramus, which may indicate a remote fracture deformity. No lytic or blastic bone lesions are identified. There is osteophytic spurring present at the endplates of the upper lumbar spine. IMPRESSION: 1. Gallbladder lumen is hyperdense. There are no adjacent inflammatory changes, and no dilation of intrahepatic biliary radicals. 2. Minimal stranding present about the 2nd portion of the duodenum. This is also seen along the ventral aspect of the pancreas. This may be correlated with lipase levels to exclude acute interstitial edematous pancreatitis. 3. Complex, nodular pericardial effusion, which is likely malignant. A large pericardial effusion was present on recent comparison chest CT. 4. Indeterminate, mixed density infiltrates at the lung bases, with thickening of the interlobular septa. Perilymphatic spread of tumor is a consideration. Dictated by Carlos Enrique Dove MD @ 11/07/2016 11:28:40 AM Dictated by: Carlos Enrique Dove MD @ 11/07/2016 11:29:09 (Electronic Signature) Report Signed by Proxy and Original Signed Document filed in the Medical Record. [facility]
--- NOTE | 2016-11-07 13:05 | PCM.PN ---
- General Info Date of Service: 11/07/16 Admission Dx/Problem (Free Text): 51M hx persistent afib cardiomyopathy with decompensated HF< squamouc cell carcinoma, with bone metastasis Subjective Update: Patient has no complaints of pain this morning. He does continue to be hypotensive but did respond to a bolus of fluid last night which brought his blood pressure up to 111/59 this morning. All of his antihypertensive meds are being held at this time. Lasix has also been discontinued. He did have a heart rate of 111 this morning and an irregular heart beat. Patient continues to have a depressed appetite with nausea and vomiting. He is receiving Zofran which is helping with the symptoms. He continues to require supplemental oxygen via nasal cannula and does have a mild nonproductive cough. He has been afebrile. He does have some mild generalized abdominal pain. Edema seems improved in his lower extremities bilaterally. Functional Status: Reports: pain controlled, tolerating diet, ambulating, urinating - Review of Systems General: Reports: Weakness, Fatigue HEENT: Reports: no symptoms Pulmonary: Reports: shortness of breath, cough, wheezing. Denies: sputum, hemoptysis Cardiovascular: Reports: Dyspnea on Exertion Gastrointestinal: Reports: Abdominal pain (Generalized), Constipation, Decreased appetite, Nausea, Vomiting. Denies: Diarrhea Genitourinary: Reports: no symptoms Musculoskeletal: Reports: other (Diffuse pain noted throughout the patient's body but is more noticeable at the right shoulder blade.) Skin: Reports: no symptoms Neurological: Reports: No Symptoms Psychiatric: Reports: no symptoms - Patient Data Vitals - most recent: Last Vital Signs Temp 96.6 F 11/07/16 11:47 Pulse 84 11/07/16 11:47 Resp 16 11/07/16 11:47 BP 111/59 L 11/07/16 08:54 Pulse Ox 95 11/07/16 11:47 Weight - most recent: 203 lb 14.841 oz I&O - last 24 hours: Intake & Output 11/06/16 11/07/16 11/07/16 22:59 06:59 14:59 Intake Total 1250 360 Output Total 450 550 Balance 800 -190 Lab Results last 24 hrs: Laboratory Results - last 24 hr 11/07/16 11/07/16 11/07/16 Range/Units 05:55 05:55 05:55 WBC 12.97 H (4.0-11.0) K/uL RBC 3.53 L (4.50-5.90) M/uL Hgb 11.3 L (13.0-17.0) g/dL Hct 36.1 L (38.0-50.0) % MCV 102.3 H (80.0-98.0) fL MCH 32.0 (27.0-32.0) pg MCHC 31.3 (31.0-37.0) g/dL RDW Std Deviation 79.8 H (28.0-62.0) fl RDW Coeff of Saira 22 H (11.0-15.0) % Plt Count 59 L (150-400) K/uL MPV 10.80 (7.40-12.00) fL Add Manual Diff YES Neutrophils % (Manual) 84 H (48.0-80.0) % Band Neutrophils % 4 % Lymphocytes % (Manual) 5 L (16.0-40.0) % Monocytes % (Manual) 7 (0.0-15.0) % Nucleated RBC % 0.8 /100WBC Absolute Seg Neuts 10.9 Band Neutrophils # 0.5 Lymphocytes # (Manual) 0.6 Monocytes # (Manual) 0.9 Nucleated RBCs # 0 K/uL Sodium 130 L (136-146) mmol/L Potassium 4.0 (3.5-5.1) mmol/L Chloride 98 (98-110) mmol/L Carbon Dioxide 18 L (21-31) mmol/L BUN 42 H (6.0-23.0) mg/dL Creatinine 1.5 (0.6-1.5) mg/dL Est Cr Clr Drug Dosing 56.76 mL/min Estimated GFR (MDRD) 49.0 ml/min Glucose 122 H (60-110) mg/dL Calcium 7.0 L (8.8-10.8) mg/dL Magnesium 2.2 (1.5-2.3) mEq/L Total Bilirubin 1.1 (0.1-1.5) mg/dL AST 97 H (5-40) IU/L ALT 75 H (8-54) IU/L Alkaline Phosphatase 110 (40-150) Total Protein 5.6 L (6.0-8.0) g/dL Albumin 2.7 L (3.5-5.0) g/dL Globulin 2.9 (2.0-3.5) g/dL Albumin/Globulin Ratio 0.9 L (1.3-2.8) Amylase 166 H (10-90) U/L Lipase 197 H (7-80) U/L Med Orders - Current: Current Medications Acetaminophen (Tylenol) 650 mg PO Q4H PRN PRN Reason: Pain (Mild 1-3)/fever Albuterol (Proventil Neb Soln) 2.5 mg NEB Q4HRRT PRN PRN Reason: Wheezing Last Admin: 11/02/16 09:54 Dose: 2.5 mg Albuterol (Ventolin Hfa) 0 gm INH Q4H PRN PRN Reason: Shortness Of Breath/wheezing Last Admin: 11/05/16 08:15 Dose: 2 puff Amiodarone HCl (Cordarone) 200 mg PO DAILY [facility] Last Admin: 11/07/16 08:47 Dose: 200 mg Bisacodyl (Dulcolax) 5 mg PO DAILY [facility] Last Admin: 11/07/16 08:50 Dose: 5 mg Carvedilol (Coreg) 12.5 mg PO BIDMEALS [facility] Last Admin: 11/07/16 08:54 Dose: Not Given Chlorpromazine HCl (Thorazine) 50 mg IM Q6H PRN PRN Reason: Hiccups Cyclobenzaprine HCl (Flexeril) 5 mg PO TID PRN PRN Reason: Spasms Docusate Sodium (Colace) 100 mg PO BID [facility] Last Admin: 11/07/16 08:50 Dose: 100 mg Sodium Chloride (Normal Saline) 500 mls @ 499 mls/hr IV Q2HR PRN PRN Reason: HYPOTENSION Last Admin: 11/01/16 23:45 Dose: 499 mls/hr Cefepime HCl 2 gm/ Premix 50 mls @ 100 mls/hr IV Q24H [facility] Last Admin: 11/07/16 09:37 Dose: 100 mls/hr Azithromycin 500 mg/ Sodium (Chloride) 250 mls @ 250 mls/hr IV Q24H [facility] Last Admin: 11/06/16 16:18 Dose: 250 mls/hr Vancomycin HCl 1 gm/ Sodium (Chloride) 250 mls @ 166.667 mls/hr IV Q18H [facility] Last Infusion: 11/07/16 06:15 Dose: Infused Lorazepam (Ativan) 0.5 - 1 mg IVPUSH Q2H PRN PRN Reason: Anxiety Metoprolol Tartrate (Lopressor) 2.5 mg IVPUSH Q4H PRN PRN Reason: Tachycardia Nystatin (Mycostatin) 5 ml PO QIDACANDBED [facility] Last Admin: 11/07/16 11:22 Dose: 5 ml Omeprazole (Omeprazole) 20 mg PO ACBREAKFAST [facility] Last Admin: 11/07/16 07:16 Dose: 20 mg Ondansetron HCl (Zofran) 4 mg IVPUSH Q4H PRN PRN Reason: Nausea Last Admin: 11/07/16 04:30 Dose: 4 mg Oxycodone HCl (Oxycontin) 40 mg PO Q12HR [facility] Last Admin: 11/07/16 08:50 Dose: 40 mg Oxycodone HCl (Oxycodone) 10 mg PO Q3H PRN PRN Reason: Pain Last Admin: 11/07/16 04:26 Dose: 10 mg Polyethylene Glycol (Miralax) 17 gm PO DAILY [facility] Last Admin: 11/07/16 08:51 Dose: 17 gm Prednisone (Prednisone) 10 mg PO DAILY [facility] Last Admin: 11/07/16 08:51 Dose: 10 mg Vancomycin HCl (Pharmacy To Dose - Vancomycin) 1 dose .XX ASDIRECTED [facility] Discontinued Medications Hydrocodone Bitart/Acetaminophen (Rolla 325-5 Mg) 2 tab PO Q4H PRN PRN Reason: Pain (moderate 4-6) Last Admin: 11/02/16 03:35 Dose: 2 tab Bisacodyl (Dulcolax) 5 mg PO DAILY PRN PRN Reason: Constipation Diltiazem HCl (Cardizem Cd) 180 mg PO DAILY [facility] Last Admin: 11/02/16 09:15 Dose: Not Given Docusate Sodium (Colace) 100 mg PO BID PRN PRN Reason: Constipation Last Admin: 11/01/16 20:24 Dose: 100 mg Enoxaparin Sodium (Lovenox) 40 mg SUBCUT Q24H [facility] Last Admin: 11/01/16 17:31 Dose: 40 mg Fentanyl (Duragesic) 50 mcg TRDERM Q72H [facility] Last Admin: 10/31/16 18:02 Dose: 50 mcg Furosemide (Lasix) 40 mg IVPUSH Q12H [facility] Last Admin: 11/02/16 05:40 Dose: Not Given Furosemide (Lasix) 40 mg IVPUSH NOW ONE Stop: 11/02/16 12:40 Last Admin: 11/02/16 13:03 Dose: Not Given Furosemide (Lasix) 20 mg IVPUSH NOW ONE Stop: 11/02/16 12:51 Last Admin: 11/02/16 13:14 Dose: 20 mg Furosemide (Lasix) 40 mg IVPUSH NOW ONE Stop: 11/02/16 18:55 Last Admin: 11/02/16 19:27 Dose: 40 mg Furosemide (Lasix) 40 mg IVPUSH NOW ONE Stop: 11/03/16 08:31 Last Admin: 11/03/16 08:25 Dose: 40 mg Furosemide (Lasix) 40 mg IVPUSH NOW ONE Stop: 11/03/16 18:16 Last Admin: 11/03/16 19:20 Dose: 40 mg Furosemide (Lasix) 40 mg IVPUSH NOW ONE Stop: 11/04/16 12:22 Last Admin: 11/04/16 12:34 Dose: 40 mg Furosemide (Lasix) 40 mg IVPUSH NOW ONE Stop: 11/04/16 20:01 Last Admin: 11/04/16 20:41 Dose: Not Given Sodium Chloride (Normal Saline) 1,000 mls @ 75 mls/hr IV ASDIRECTED [facility] Levofloxacin/Dextrose 750 mg/ (Premix) 150 mls @ 100 mls/hr IV Q24H [facility] Last Admin: 10/31/16 20:42 Dose: 100 mls/hr Sodium Chloride (Normal Saline) 500 mls @ 499 mls/hr IV .BOLUS [facility] Last Admin: 11/02/16 02:13 Dose: 499 mls/hr Levofloxacin/Dextrose 750 mg/ (Premix) 150 mls @ 100 mls/hr IV Q48H [facility] Vancomycin HCl 1.25 gm/ Sodium (Chloride) 500 mls @ 333.333 mls/hr IV Q18H [facility] Vancomycin HCl 1.25 gm/ Sodium (Chloride) 250 mls @ 166.667 mls/hr IV Q18H [facility] Vancomycin HCl 1.25 gm/ Sodium (Chloride) 250 mls @ 166.667 mls/hr IV Q18H [facility] Last Admin: 11/05/16 12:16 Dose: Not Given Levofloxacin/Dextrose 750 mg/ (Premix) 150 mls @ 100 mls/hr IV Q48H [facility] Last Admin: 11/03/16 17:08 Dose: 100 mls/hr Piperacillin Sod/Tazobactam (Sod 3.375 gm/ Sodium Chloride) 50 mls @ 100 mls/ hr IV Q6H [facility] Last Admin: 11/03/16 08:03 Dose: 100 mls/hr Cefepime HCl 2 gm/ Premix 50 mls @ 100 mls/hr IV Q8H [facility] Last Admin: 11/03/16 19:15 Dose: Not Given Cefepime HCl 2 gm/ Premix 50 mls @ 100 mls/hr IV Q8H [facility] Last Admin: 11/04/16 10:46 Dose: 100 mls/hr Azithromycin 500 mg/ Sodium (Chloride) 250 mls @ 250 mls/hr IV Q24H [facility] Last Admin: 11/03/16 20:02 Dose: 250 mls/hr Sodium Chloride (Normal Saline) 500 mls @ 500 mls/hr IV ONETIME ONE Stop: 11/06/16 19:14 Last Infusion: 11/06/16 19:18 Dose: Infused Ibuprofen (Motrin) 800 mg PO Q8H PRN PRN Reason: Pain Last Admin: 11/02/16 10:19 Dose: 800 mg Levofloxacin (Levaquin) 750 mg PO Q24H [facility] Last Admin: 11/01/16 17:31 Dose: 750 mg Lisinopril (Prinivil) 20 mg PO DAILY [facility] Last Admin: 11/01/16 08:07 Dose: Not Given Lisinopril (Prinivil) 5 mg PO DAILY [facility] Last Admin: 11/02/16 09:16 Dose: Not Given Nystatin (Mycostatin) 5 ml PO QIDACANDBED [facility] Lidocaine 5% Patch 1 each TOP DAILY [facility] Last Admin: 11/01/16 09:44 Dose: Not Given Polyethylene Glycol (Miralax) 17 gm PO DAILY PRN PRN Reason: Constipation - Exam Quality Assessment: supplemental oxygen (1 L nasal cannula), DVT prophylaxis ( scd's) General: alert, oriented, cooperative, no acute distress Neck: supple Lungs: Normal respiratory effort, Rhonchi, Other (Coarse breath sounds noted diffusely and bilaterally in all lung rivera.) Cardiovascular: Irregular Rhythm (Atrial fibrillation), Tachycardia (111 beats per minute) Abdomen: bowel sounds present, soft, no distension, tenderness (Mild tenderness with palpation diffusely throughout the abdomen.). No: rebound, guarding Extremities: no calf tenderness, edema (+2 pitting edema bilaterally in the lower extremities.) Peripheral Pulses: 2+: radial (L), radial (R) Skin: warm, dry, intact Neurological: no new focal deficit Psy/Mental Status: alert, normal affect, normal mood - Problem List & Annotations (1) CHF, Congestive heart failure SNOMED Code(s): 02631332 Code(s): I50.9 - HEART FAILURE, UNSPECIFIED Status: Acute Current Visit: No (2) Lung cancer SNOMED Code(s): 002444481 Code(s): C34.90 - MALIGNANT NEOPLASM OF UNSP PART OF UNSP BRONCHUS OR LUNG Status: Acute Current Visit: No Qualifiers: Laterality: unspecified laterality Lung location: unspecified part of lung Qualified Code(s): C34.90 - Malignant neoplasm of unspecified part of unspecified bronchus or lung (3) Pneumonia SNOMED Code(s): 042797642 Code(s): J18.9 - PNEUMONIA, UNSPECIFIED ORGANISM Status: Acute Current Visit: No - Problem List Review Problem List Initiated/Reviewed/Updated: No - My Orders Last 24 Hours: My Active Orders 11/07/16 09:36 Metoprolol Tartrate [Lopressor] 2.5 mg IVPUSH Q4H PRN 11/07/16 11:10 Consult to Occupational Therapy [OT Evaluation and Treatment] [CONS] Routine PT Evaluation and Treatment [CONS] Routine 11/07/16 12:18 Abdomen Ltd [US] Routine 11/07/16 Dinner Clear Liquid Diet [DIET] - Plan Plan:: 51 year old male admitted with severe peripheral edema secondary to CHF 1. CHF exacerbation with peripheral edema -Lasix has been discontinued secondary to patient's kidney function and his hypotension. -ECHO shows ejection fraction of 35-40%. -Patient being followed by Dr. Bey, [facility]. -Bilateral lower extremity edema has improved since admission. 2. Community acquired pneumonia: - White blood cell count is stable. Continue with cefepime, vancomycin and azithromycin. -blood culture negative x 5 days -Albuterol PRN shortness of breath and wheezing. 3. Atrial fibrillation: -continue home medications of amiodarone. Diltiazem has been d/c by [facility]. Patient will give metoprolol 2.5 mg every 4 hours IV as needed for heart rate greater than 110. -Patient is not currently being anticoagulated secondary to platelet count of 59 4. Lung cancer with bony mets: -Continue with Oxycontin 40mg BID and Oxycodone 10mg q4hrs PRN breakthrough pain. - patient was seen by his oncologist, Dr. Gill, who had no recommendations and was in agreement with current treatment during admission. 5. Acute kidney injury -BUN/creatinine are stable. GFR creatinine clearance continue to improve. 6. Pancreatitis: -Abdomen and pelvis CT was obtained secondary to the patient's diffuse abdominal pain, nausea vomiting and increased LFTs. There is some stranding noted at the second portion of the duodenum as well as the head of the pancreas which is suggestive of pancreatitis. Lipase is elevated at 199 and amylase is elevated as well. -Patient will be changed to clear liquid diet as opposed to giving IV fluids as there is concern about fluid overloading the patient given his poor ejection fraction. -Right upper quadrant is pending secondary to the patient's elevated LFTs. Disposition: application is being submitted to [employer]. Insurance may not cover this and the patient will go home on home health in 2-4 days pending improvement. PT/OT assessment has been placed again.
[2016-11-07] MEDS: Albuterol 0.083% 2.5 MG/3 ML Neb Soln NEB PRN ×2 (14:20→21:24)
[2016-11-07] MEDS: Megestrol Susp 40 MG/ML 10 ML UD Cup PO SCH (15:56)
[2016-11-07] MEDS: Azithromycin 500 MG in Sodium Chloride 0.9% 250 ML IV SCH (16:45)
[2016-11-07] MEDS ORDERED: Azithromycin 250 MG Tab PO SCH (17:00)
[2016-11-07] MEDS ORDERED: Sodium Chloride 0.9% 250 ML ONE (21:00)
[2016-11-08] MEDS: Omeprazole 20 MG Cap.CR PO SCH (06:35)
[2016-11-08] MEDS: Nystatin Susp 100,000 Unit/ML 5 ML UD Cup PO SCH ×4 (06:35→21:13)
[2016-11-08] MEDS: Ondansetron 4 MG/2 ML SDV IVPUSH PRN (06:46)
[2016-11-08] MEDS: Megestrol Susp 40 MG/ML 10 ML UD Cup PO SCH ×2 (08:21→14:31)
[2016-11-08] MEDS: predniSONE 10 MG Tab PO SCH (08:21)
[2016-11-08] MEDS: Polyethylene Glycol 3350 Powder 17 GM Packet PO SCH (08:21)
[2016-11-08] MEDS: Docusate Sodium 100 MG Cap PO SCH (08:21)
[2016-11-08] MEDS: Amiodarone 200 MG Tab PO SCH (08:21)
[2016-11-08] MEDS: Bisacodyl 5 MG Tab PO SCH ×2 (08:21→14:32)
[2016-11-08] MEDS: oxyCODONE ER 20 MG TAB.ER PO SCH (08:22)
[2016-11-08] MEDS ORDERED: Promethazine 25 MG Tab PO PRN (08:55)
[2016-11-08] MEDS ORDERED: Promethazine 25 MG/ML SDV IM PRN (08:56)
[2016-11-08] MEDS: Carvedilol 12.5 MG Tab PO SCH ×2 (08:58→18:10)
[2016-11-08] MEDS: Cefepime 2 GM in Premix Bag 1 BAG IV SCH (09:16)
--- NOTE | 2016-11-08 10:04 | US ---
EXAM DATE: 10/31/16 PATIENT'S AGE: 51 Patient: EMILE EVANS Facility: [place], [place] Site . Site : [id number] Study: US Abdomen [id number]/24/2017 1:29:50 PM Ordering Physician: Garrick Foster Final Report: INDICATION: Elevated liver enzymes. History of lung cancer. TECHNIQUE: Ultrasound abdomen limited. Sonographic images of the right upper quadrant were obtained using thompson-scale and color Doppler images. COMPARISON: None FINDINGS: Liver: The liver parenchyma is normal in echotexture. No masses or intrahepatic biliary ductal dilatation seen. Gallbladder: Small amount of sludge seen in the lumen. The gallbladder wall is normal in appearance. No pericholecystic fluid is present. No sonographic Sanches s sign is present. Common bile duct: 3 mm. Pancreas: The visualized portions of the pancreatic head and body are normal in appearance. Right kidney: 10.5 cm. Normal echotexture and cortex noted. No masses, stones, or hydronephrosis seen. Vascular: Proximal abdominal aorta and IVC are normal. The portal vein is patent with anterograde flow and is normal in size. IMPRESSION: 1. Small amount of sludge seen in the gallbladder lumen. Dictated by Ted Reed MD @ 11/07/2016 5:22:52 PM Dictated by: Ted Reed MD @ 11/07/2016 17:22:57 (Electronic Signature) Report Signed by Proxy and Original Signed Document filed in the Medical Record. JASMYN
--- NOTE | 2016-11-08 11:19 | PCM.PN ---
- General Info Date of Service: 11/08/16 Admission Dx/Problem (Free Text): 51M hx persistent afib cardiomyopathy with decompensated HF< squamouc cell carcinoma, with bone metastasis Subjective Update: Patient continues to be fatigued and just wants to sleep. He reports no pain. He requests to speak with hospice today. Functional Status: Reports: pain controlled - Review of Systems General: Reports: Weakness, Fatigue HEENT: Reports: no symptoms Pulmonary: Reports: shortness of breath, cough (The) Cardiovascular: Reports: Dyspnea on Exertion, Edema (Lower extremities bilaterally.) Gastrointestinal: Reports: Constipation, Decreased appetite, Nausea. Denies: Diarrhea, Vomiting Genitourinary: Reports: retention Musculoskeletal: Reports: other (Generalized diffuse pain.) Skin: Reports: no symptoms Neurological: Reports: No Symptoms Psychiatric: Reports: no symptoms - Patient Data Vitals - most recent: Last Vital Signs Temp 97.8 F 11/08/16 07:55 Pulse 99 11/08/16 08:58 Resp 18 11/08/16 07:55 BP 105/59 L 11/08/16 08:58 Pulse Ox 92 L 11/08/16 07:55 Weight - most recent: 199 lb 3.2 oz I&O - last 24 hours: Intake & Output 11/07/16 11/08/16 11/08/16 22:59 06:59 14:59 Intake Total 650 530 50 Output Total 0 500 Balance 650 30 50 Lab Results last 24 hrs: Laboratory Results - last 24 hr 11/07/16 11/07/16 11/08/16 Range/Units 05:55 21:00 05:32 WBC (4.0-11.0) K/uL RBC (4.50-5.90) M/uL Hgb (13.0-17.0) g/dL Hct (38.0-50.0) % MCV (80.0-98.0) fL MCH (27.0-32.0) pg MCHC (31.0-37.0) g/dL RDW Std Deviation (28.0-62.0) fl RDW Coeff of Saira (11.0-15.0) % Plt Count (150-400) K/uL MPV (7.40-12.00) fL Add Manual Diff Neutrophils % (Manual) (48.0-80.0) % Band Neutrophils % % Lymphocytes % (Manual) (16.0-40.0) % Monocytes % (Manual) (0.0-15.0) % Metamyelocytes % % Nucleated RBC % /100WBC Absolute Seg Neuts Band Neutrophils # Lymphocytes # (Manual) Monocytes # (Manual) Absolute Metamyelocyte Nucleated RBCs % Nucleated RBCs # K/uL Sodium 131 L (136-146) mmol/L Potassium 4.5 (3.5-5.1) mmol/L Chloride 98 (98-110) mmol/L Carbon Dioxide 21 (21-31) mmol/L BUN 48 H (6.0-23.0) mg/dL Creatinine 1.9 H (0.6-1.5) mg/dL Est Cr Clr Drug Dosing 44.81 mL/min Estimated GFR (MDRD) 37.3 ml/min Glucose 81 (60-110) mg/dL Calcium 7.1 L (8.8-10.8) mg/dL Magnesium 2.3 (1.5-2.3) mEq/L Total Bilirubin 1.4 (0.1-1.5) mg/dL AST 178 H (5-40) IU/L ALT 151 H (8-54) IU/L Alkaline Phosphatase 108 (40-150) Total Protein 5.6 L (6.0-8.0) g/dL Albumin 2.8 L (3.5-5.0) g/dL Globulin 2.8 (2.0-3.5) g/dL Albumin/Globulin Ratio 1.0 L (1.3-2.8) Triglycerides 94 (10-190) mg/dL Cholesterol 89 L (131-240) mg/dL LDL Cholesterol, Calc 59 L (60-180) mg/dL VLDL Cholesterol 19 (5-55) mg/dL HDL Cholesterol 11 L (40-80) mg/dL Cholesterol/HDL Ratio 8.1 H (3.3-6.0) Amylase 166 H (10-90) U/L Lipase 197 H (7-80) U/L Vancomycin Trough 26.4 H (5-15) ug/mL 11/08/16 Range/Units 05:32 WBC 13.41 H (4.0-11.0) K/uL RBC 3.47 L (4.50-5.90) M/uL Hgb 11.1 L (13.0-17.0) g/dL Hct 35.3 L (38.0-50.0) % MCV 101.7 H (80.0-98.0) fL MCH 32.0 (27.0-32.0) pg MCHC 31.4 (31.0-37.0) g/dL RDW Std Deviation 79.1 H (28.0-62.0) fl RDW Coeff of Saira 22 H (11.0-15.0) % Plt Count 50 L (150-400) K/uL MPV 10.30 (7.40-12.00) fL Add Manual Diff YES Neutrophils % (Manual) 82 H (48.0-80.0) % Band Neutrophils % 4 % Lymphocytes % (Manual) 6 L (16.0-40.0) % Monocytes % (Manual) 7 (0.0-15.0) % Metamyelocytes % 1 % Nucleated RBC % 1.7 /100WBC Absolute Seg Neuts 11.0 Band Neutrophils # 0.5 Lymphocytes # (Manual) 0.8 Monocytes # (Manual) 0.9 Absolute Metamyelocyte 0.1 Nucleated RBCs 1 % Nucleated RBCs # 0 K/uL Sodium (136-146) mmol/L Potassium (3.5-5.1) mmol/L Chloride (98-110) mmol/L Carbon Dioxide (21-31) mmol/L BUN (6.0-23.0) mg/dL Creatinine (0.6-1.5) mg/dL Est Cr Clr Drug Dosing mL/min Estimated GFR (MDRD) ml/min Glucose (60-110) mg/dL Calcium (8.8-10.8) mg/dL Magnesium (1.5-2.3) mEq/L Total Bilirubin (0.1-1.5) mg/dL AST (5-40) IU/L ALT (8-54) IU/L Alkaline Phosphatase (40-150) Total Protein (6.0-8.0) g/dL Albumin (3.5-5.0) g/dL Globulin (2.0-3.5) g/dL Albumin/Globulin Ratio (1.3-2.8) Triglycerides (10-190) mg/dL Cholesterol (131-240) mg/dL LDL Cholesterol, Calc (60-180) mg/dL VLDL Cholesterol (5-55) mg/dL HDL Cholesterol (40-80) mg/dL Cholesterol/HDL Ratio (3.3-6.0) Amylase (10-90) U/L Lipase (7-80) U/L Vancomycin Trough (5-15) ug/mL Med Orders - Current: Current Medications Acetaminophen (Tylenol) 650 mg PO Q4H PRN PRN Reason: Pain (Mild 1-3)/fever Albuterol (Proventil Neb Soln) 2.5 mg NEB Q4HRRT PRN PRN Reason: Wheezing Last Admin: 11/07/16 21:24 Dose: 2.5 mg Albuterol (Ventolin Hfa) 0 gm INH Q4H PRN PRN Reason: Shortness Of Breath/wheezing Last Admin: 11/05/16 08:15 Dose: 2 puff Amiodarone HCl (Cordarone) 200 mg PO DAILY [facility] Last Admin: 11/08/16 08:21 Dose: 200 mg Bisacodyl (Dulcolax) 5 mg PO DAILY [facility] Last Admin: 11/08/16 08:21 Dose: 5 mg Carvedilol (Coreg) 12.5 mg PO BIDMEALS [facility] Last Admin: 11/08/16 08:58 Dose: Not Given Chlorpromazine HCl (Thorazine) 50 mg IM Q6H PRN PRN Reason: Hiccups Cyclobenzaprine HCl (Flexeril) 5 mg PO TID PRN PRN Reason: Spasms Docusate Sodium (Colace) 100 mg PO BID [facility] Last Admin: 11/08/16 08:21 Dose: 100 mg Sodium Chloride (Normal Saline) 500 mls @ 499 mls/hr IV Q2HR PRN PRN Reason: HYPOTENSION Last Admin: 11/01/16 23:45 Dose: 499 mls/hr Cefepime HCl 2 gm/ Premix 50 mls @ 100 mls/hr IV Q24H [facility] Last Admin: 11/08/16 09:16 Dose: 100 mls/hr Azithromycin 500 mg/ Sodium (Chloride) 250 mls @ 250 mls/hr IV Q24H [facility] Last Admin: 11/07/16 16:45 Dose: 250 mls/hr Vancomycin HCl 1 gm/ Sodium (Chloride) 250 mls @ 166.667 mls/hr IV Q24H [facility] Last Infusion: 11/08/16 05:56 Dose: Infused Lorazepam (Ativan) 0.5 - 1 mg IVPUSH Q2H PRN PRN Reason: Anxiety Megestrol Acetate (Megace 40 Mg/Ml Susp) 400 mg PO DAILY [facility] Last Admin: 11/08/16 08:21 Dose: 400 mg Metoprolol Tartrate (Lopressor) 2.5 mg IVPUSH Q4H PRN PRN Reason: Tachycardia Nystatin (Mycostatin) 5 ml PO QIDACANDBED [facility] Last Admin: 11/08/16 06:35 Dose: 5 ml Omeprazole (Omeprazole) 20 mg PO ACBREAKFAST [facility] Last Admin: 11/08/16 06:35 Dose: 20 mg Ondansetron HCl (Zofran) 4 mg IVPUSH Q4H PRN PRN Reason: Nausea Last Admin: 11/08/16 06:46 Dose: 4 mg Oxycodone HCl (Oxycontin) 40 mg PO Q12HR [facility] Last Admin: 11/08/16 08:22 Dose: 40 mg Oxycodone HCl (Oxycodone) 10 mg PO Q3H PRN PRN Reason: Pain Last Admin: 11/07/16 14:08 Dose: 10 mg Polyethylene Glycol (Miralax) 17 gm PO DAILY [facility] Last Admin: 11/08/16 08:21 Dose: 17 gm Prednisone (Prednisone) 10 mg PO DAILY [facility] Last Admin: 11/08/16 08:21 Dose: 10 mg Promethazine HCl (Phenergan) 12.5 mg IM Q4H PRN PRN Reason: Nausea/Vomiting Last Admin: 11/08/16 09:17 Dose: 12.5 mg Vancomycin HCl (Pharmacy To Dose - Vancomycin) 1 dose .XX ASDIRECTED [facility] Discontinued Medications Hydrocodone Bitart/Acetaminophen ([place] 325-5 Mg) 2 tab PO Q4H PRN PRN Reason: Pain (moderate 4-6) Last Admin: 11/02/16 03:35 Dose: 2 tab Bisacodyl (Dulcolax) 5 mg PO DAILY PRN PRN Reason: Constipation Diltiazem HCl (Cardizem Cd) 180 mg PO DAILY [facility] Last Admin: 11/02/16 09:15 Dose: Not Given Docusate Sodium (Colace) 100 mg PO BID PRN PRN Reason: Constipation Last Admin: 11/01/16 20:24 Dose: 100 mg Enoxaparin Sodium (Lovenox) 40 mg SUBCUT Q24H [facility] Last Admin: 11/01/16 17:31 Dose: 40 mg Fentanyl (Duragesic) 50 mcg TRDERM Q72H [facility] Last Admin: 10/31/16 18:02 Dose: 50 mcg Furosemide (Lasix) 40 mg IVPUSH Q12H [facility] Last Admin: 11/02/16 05:40 Dose: Not Given Furosemide (Lasix) 40 mg IVPUSH NOW ONE Stop: 11/02/16 12:40 Last Admin: 11/02/16 13:03 Dose: Not Given Furosemide (Lasix) 20 mg IVPUSH NOW ONE Stop: 11/02/16 12:51 Last Admin: 11/02/16 13:14 Dose: 20 mg Furosemide (Lasix) 40 mg IVPUSH NOW ONE Stop: 11/02/16 18:55 Last Admin: 11/02/16 19:27 Dose: 40 mg Furosemide (Lasix) 40 mg IVPUSH NOW ONE Stop: 11/03/16 08:31 Last Admin: 11/03/16 08:25 Dose: 40 mg Furosemide (Lasix) 40 mg IVPUSH NOW ONE Stop: 11/03/16 18:16 Last Admin: 11/03/16 19:20 Dose: 40 mg Furosemide (Lasix) 40 mg IVPUSH NOW ONE Stop: 11/04/16 12:22 Last Admin: 11/04/16 12:34 Dose: 40 mg Furosemide (Lasix) 40 mg IVPUSH NOW ONE Stop: 11/04/16 20:01 Last Admin: 11/04/16 20:41 Dose: Not Given Sodium Chloride (Normal Saline) 1,000 mls @ 75 mls/hr IV ASDIRECTED [facility] Levofloxacin/Dextrose 750 mg/ (Premix) 150 mls @ 100 mls/hr IV Q24H [facility] Last Admin: 10/31/16 20:42 Dose: 100 mls/hr Sodium Chloride (Normal Saline) 500 mls @ 499 mls/hr IV .BOLUS [facility] Last Admin: 11/02/16 02:13 Dose: 499 mls/hr Levofloxacin/Dextrose 750 mg/ (Premix) 150 mls @ 100 mls/hr IV Q48H [facility] Vancomycin HCl 1.25 gm/ Sodium (Chloride) 500 mls @ 333.333 mls/hr IV Q18H [facility] Vancomycin HCl 1.25 gm/ Sodium (Chloride) 250 mls @ 166.667 mls/hr IV Q18H [facility] Vancomycin HCl 1.25 gm/ Sodium (Chloride) 250 mls @ 166.667 mls/hr IV Q18H [facility] Last Admin: 11/05/16 12:16 Dose: Not Given Levofloxacin/Dextrose 750 mg/ (Premix) 150 mls @ 100 mls/hr IV Q48H [facility] Last Admin: 11/03/16 17:08 Dose: 100 mls/hr Piperacillin Sod/Tazobactam (Sod 3.375 gm/ Sodium Chloride) 50 mls @ 100 mls/ hr IV Q6H [facility] Last Admin: 11/03/16 08:03 Dose: 100 mls/hr Cefepime HCl 2 gm/ Premix 50 mls @ 100 mls/hr IV Q8H [facility] Last Admin: 11/03/16 19:15 Dose: Not Given Cefepime HCl 2 gm/ Premix 50 mls @ 100 mls/hr IV Q8H [facility] Last Admin: 11/04/16 10:46 Dose: 100 mls/hr Azithromycin 500 mg/ Sodium (Chloride) 250 mls @ 250 mls/hr IV Q24H [facility] Last Admin: 11/03/16 20:02 Dose: 250 mls/hr Vancomycin HCl 1 gm/ Sodium (Chloride) 250 mls @ 166.667 mls/hr IV Q18H [facility] Last Infusion: 11/07/16 06:15 Dose: Infused Sodium Chloride (Normal Saline) 500 mls @ 500 mls/hr IV ONETIME ONE Stop: 11/06/16 19:14 Last Infusion: 11/06/16 19:18 Dose: Infused Sodium Chloride (Normal Saline) Confirm Administered Dose 250 mls @ as directed .ROUTE .STK-MED ONE Stop: 11/07/16 21:01 Last Admin: 11/07/16 21:04 Dose: Not Given Ibuprofen (Motrin) 800 mg PO Q8H PRN PRN Reason: Pain Last Admin: 11/02/16 10:19 Dose: 800 mg Levofloxacin (Levaquin) 750 mg PO Q24H [facility] Last Admin: 11/01/16 17:31 Dose: 750 mg Lisinopril (Prinivil) 20 mg PO DAILY [facility] Last Admin: 11/01/16 08:07 Dose: Not Given Lisinopril (Prinivil) 5 mg PO DAILY [facility] Last Admin: 11/02/16 09:16 Dose: Not Given Nystatin (Mycostatin) 5 ml PO QIDACANDBED [facility] Lidocaine 5% Patch 1 each TOP DAILY [facility] Last Admin: 11/01/16 09:44 Dose: Not Given Polyethylene Glycol (Miralax) 17 gm PO DAILY PRN PRN Reason: Constipation Promethazine HCl (Phenergan) 25 mg PO Q4H PRN PRN Reason: Nausea/Vomiting - Exam Quality Assessment: supplemental oxygen (2 L nasal cannula.), DVT prophylaxis ( scd's) General: cooperative, no acute distress, other (Patient sleepy but easily arousable.) HEENT: Pupils equal, Pupils reactive, EOMI, Mucous membr. moist/pink Neck: supple Lungs: Normal respiratory effort, Rhonchi, Wheezing Cardiovascular: Regular Rhythm, Tachycardia (102 beats per minute ) Abdomen: bowel sounds present, soft, no tenderness, no distension Back Exam: normal inspection Extremities: no calf tenderness, edema (+2 pitting edema in the lower extremities bilaterally.) Peripheral Pulses: 2+: radial (L), radial (R) Skin: warm, dry, intact Neurological: no new focal deficit Psy/Mental Status: alert, normal affect, normal mood - Problem List & Annotations (1) CHF, Congestive heart failure SNOMED Code(s): 48239068 Code(s): I50.9 - HEART FAILURE, UNSPECIFIED Status: Acute Current Visit: No (2) Lung cancer SNOMED Code(s): 957988567 Code(s): C34.90 - MALIGNANT NEOPLASM OF UNSP PART OF UNSP BRONCHUS OR LUNG Status: Acute Current Visit: No Qualifiers: Laterality: unspecified laterality Lung location: unspecified part of lung Qualified Code(s): C34.90 - Malignant neoplasm of unspecified part of unspecified bronchus or lung (3) Pneumonia SNOMED Code(s): 721470386 Code(s): J18.9 - PNEUMONIA, UNSPECIFIED ORGANISM Status: Acute Current Visit: No - Problem List Review Problem List Initiated/Reviewed/Updated: Yes - My Orders Last 24 Hours: My Active Orders 11/07/16 13:49 Consult to Dietary [Consult to [facility]] [CONS] Routine 11/07/16 15:00 Megestrol [Megace 40 MG/ML Susp] 400 mg PO DAILY 11/07/16 Dinner Clear Liquid Diet [DIET] 11/08/16 04:00 Vancomycin [Vancocin] 1 gm Sodium Chloride 0.9% [Normal Saline] 250 ml IV Q24H 11/08/16 08:54 Consult to Hospice [CONS] Routine 11/08/16 08:56 Promethazine [Phenergan] 12.5 mg IM Q4H PRN 11/08/16 10:01 Urinary Catheter Assessment [RC] ASDIRECTED 11/08/16 10:15 [place] Catheter Insertion [Insert Urinary Catheter] [OM.PC] Q24H 11/09/16 05:11 CBC WITH AUTO DIFF [HEME] AM COMPREHENSIVE METABOLIC PN,CMP [CHEM] AM MAGNESIUM [CHEM] AM 11/10/16 05:11 CBC WITH AUTO DIFF [HEME] AM COMPREHENSIVE METABOLIC PN,CMP [CHEM] AM MAGNESIUM [CHEM] AM - Plan Plan:: 51 year old male admitted with severe peripheral edema secondary to CHF. Patient is current diagnosis of lung cancer with metastasis to the right shoulder. Patient and his family spoke with hospice today and the patient has decided to go home on hospice tomorrow. Disposition: Tomorrow on hospice.
[2016-11-08] MEDS: Azithromycin 500 MG in Sodium Chloride 0.9% 250 ML IV SCH (16:47)
[2016-11-08] MEDS ORDERED: Morphine 2 MG/ML Syringe IVPUSH ONE (17:55)
[2016-11-08] MEDS ORDERED: Morphine 10 MG/ML Syringe ONE (17:59)
[2016-11-08] MEDS ORDERED: Morphine 10 MG/ML Syringe IVPUSH PRN (18:11)
[2016-11-08] MEDS ORDERED: Morphine 2 MG/ML Syringe IVPUSH STA (18:13)
[2016-11-08] MEDS: Albuterol 0.083% 2.5 MG/3 ML Neb Soln NEB PRN (18:19)
[2016-11-08] MEDS: LORazepam 2 MG/ML MDV IVPUSH PRN (21:32)
[2016-11-09] MEDS: Nystatin Susp 100,000 Unit/ML 5 ML UD Cup PO SCH ×2 (06:31→12:07)
[2016-11-09] MEDS: LORazepam 2 MG/ML MDV IVPUSH PRN (06:44)
[2016-11-09] MEDS: Amiodarone 200 MG Tab PO SCH (08:36)
[2016-11-09] MEDS: Carvedilol 12.5 MG Tab PO SCH ×2 (08:36→08:38)
--- NOTE | 2016-11-09 10:23 | PCM.DCSUM1 ---
Discharge Summary - Hospital Course Free Text/Narrative:: Admission diagnoses: #1. 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 Atrial fibrillation without anticoagulation #3. CHF exacerbation #4. Community-acquired pneumonia Discharge diagnoses: #1. Squamous cell carcinoma the lung with bony metastases #2. Atrial fibrillation without anticoagulation #3. CHF exacerbation #4. Pancreatitis #5. Community-acquired pneumonia 51-year-old male with a current diagnosis of squamous cell carcinoma of the lung with bony metastases was admitted with CHF exacerbation. Patient was treated with multiple doses of IV Lasix to mobilize his fluid but this in turn caused a worsening of his kidney function. Our sponge maker was consulted and did follow the patient and recommended intermittent doses of Lasix as he saw was necessary. The intermittent doses of Lasix did help improve the patient's peripheral edema. The patient was also receiving antihypertensives and other medications for his atrial fibrillation. At the end of admission, the patient's Lasix, antihypertensives and atrial fibrillation medications apart from amiodarone were being held. The patient did receive a few IV boluses to help raise his blood pressure but this was not effective. Patient had an elevated white blood cell count on admission was noted to have a pneumonia on chest x- ray. He was started on Levaquin initially but his white blood cell count continued to rise and so he was started on broad-spectrum antibiotics. His white blood cell count did improve for a couple of days but despite the broad- spectrum antibiotics once again became elevated. At the end of admission the patient was having abdominal pain with nausea and vomiting. Abdominal CT was ordered which showed pancreatitis and blood work showed an elevated lipase. Patient could not be given fluids secondary to CHF exacerbation and so he was kept on a clear liquid diet. The patient was given OxyContin twice a day for pain management with oxycodone available as needed for breakthrough pain during admission. His pain was adequately controlled with this regimen. The patient's respiratory status significantly declined near the end of admission where he was requiring oxygen supplementation by mask and eventually morphine to help with his respiratory distress. Ativan was also added as needed to help with the patient's restlessness. The family and the patient requested hospice to visit with them and it was determined by the patient that he would go home on hospice. - Discharge Data Discharge Date: 11/09/16 Discharge Disposition: DC/Tfer to Hospice - Home 48 Condition: Good - Discharge Diagnosis/Problem(s) (1) CHF, Congestive heart failure SNOMED Code(s): 18303224 ICD Code: I50.9 - HEART FAILURE, UNSPECIFIED Status: Acute Current Visit : No (2) Lung cancer SNOMED Code(s): 107246432 ICD Code: C34.90 - MALIGNANT NEOPLASM OF UNSP PART OF UNSP BRONCHUS OR LUNG Status: Acute Current Visit: No Qualifiers: Laterality: unspecified laterality Lung location: unspecified part of lung Qualified Code(s): C34.90 - Malignant neoplasm of unspecified part of unspecified bronchus or lung (3) Pneumonia SNOMED Code(s): 288291919 ICD Code: J18.9 - PNEUMONIA, UNSPECIFIED ORGANISM Status: Acute Current Visit: No (4) Pancreatitis SNOMED Code(s): 13240131 ICD Code: K85.90 - ACUTE PANCREATITIS WITHOUT NECROSIS OR INFECTION, UNSP Status: Acute Current Visit: Yes - Patient Summary/Data Consults: Consultations 11/02/16 11:15 Consult to Physician [CONS] Routine 11/07/16 13:49 Consult to Dietary [Consult to Business Education Instructor] [CONS] Routine 11/08/16 08:54 Consult to Hospice [CONS] Routine - Patient Instructions Diet: Regular Diet as Tolerated - Discharge Plan Home Medications: Home Meds Albuterol Sulfate [Ventolin Hfa] 1 - 2 puff INH Q4H PRN 11/09/15 [History] Amiodarone HCl 200 mg PO DAILY 10/31/16 [History] Carvedilol 12.5 mg PO BIDMEALS 10/31/16 [History] Diltiazem HCl [Dilt-Xr] 180 mg PO DAILY 10/31/16 [History] Fluticasone/Vilanterol [Breo Ellipta 100-25 MCG Inhalation Kit] 1 inh IH DAILY 10/31/16 [History] Nystatin [Mycostatin] 5 ml PO QIDACANDBED 10/31/16 [History] LORazepam [Ativan] 1 mg IVPUSH Q4H PRN #0 vial 11/09/16 [Rx] Morphine 5 mg IVPUSH Q1H PRN #0 syringe 11/09/16 [Rx] Ondansetron [Zofran] 4 mg IVPUSH Q4H PRN #0 vial 11/09/16 [Rx] Promethazine [Phenergan] 12.5 mg IM Q4H PRN #0 vial 11/09/16 [Rx] Patient Handouts: Heart Failure, [id number] - Discharge Summary/Plan Comment DC Time >30 min.: No Discharge Summary/Plan Comment: Admission diagnoses: #1. 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 Atrial fibrillation without anticoagulation #3. CHF exacerbation #4. Community-acquired pneumonia Discharge diagnoses: #1. Squamous cell carcinoma the lung with bony metastases #2. Atrial fibrillation without anticoagulation #3. CHF exacerbation #4. Pancreatitis #5. Community-acquired pneumonia 51-year-old male with a current diagnosis of squamous cell carcinoma of the lung with bony metastases was admitted with CHF exacerbation. Patient was treated with multiple doses of IV Lasix to mobilize his fluid but this in turn caused a worsening of his kidney function. Our sponge maker was consulted and did follow the patient and recommended intermittent doses of Lasix as he saw was necessary. The intermittent doses of Lasix did help improve the patient's peripheral edema. The patient was also receiving antihypertensives and other medications for his atrial fibrillation. At the end of admission, the patient's Lasix, antihypertensives and atrial fibrillation medications apart from amiodarone were being held. The patient did receive a few IV boluses to help raise his blood pressure but this was not effective. Patient had an elevated white blood cell count on admission was noted to have a pneumonia on chest x- ray. He was started on Levaquin initially but his white blood cell count continued to rise and so he was started on broad-spectrum antibiotics. His white blood cell count did improve for a couple of days but despite the broad- spectrum antibiotics once again became elevated. At the end of admission the patient was having abdominal pain with nausea and vomiting. Abdominal CT was ordered which showed pancreatitis and blood work showed an elevated lipase. Patient could not be given fluids secondary to CHF exacerbation and so he was kept on a clear liquid diet. The patient was given OxyContin twice a day for pain management with oxycodone available as needed for breakthrough pain during admission. His pain was adequately controlled with this regimen. The patient's respiratory status significantly declined near the end of admission where he was requiring oxygen supplementation by mask and eventually morphine to help with his respiratory distress. Ativan was also added as needed to help with the patient's restlessness. The family and the patient requested hospice to visit with them and it was determined by the patient that he would go home on hospice. Discharge plan: #1. The patient will be discharged home on hospice. #2. Medications will be continued that help keep the patient comfortable. - Patient Data Vitals - Most Recent: Last Vital Signs Temp 96.9 F 11/09/16 07:37 Pulse 115 H 11/09/16 08:38 Resp 20 11/09/16 07:37 BP 98/62 11/09/16 08:38 Pulse Ox 96 11/09/16 07:37 Weight - Most Recent: 199 lb 3.2 oz I&O - Last 24 hours: Intake & Output 11/08/16 11/09/16 11/09/16 22:59 06:59 14:59 Intake Total 400 240 Output Total 350 75 Balance 50 165 Med Orders - Current: Current Medications Albuterol (Proventil Neb Soln) 2.5 mg NEB Q4HRRT PRN PRN Reason: Wheezing Last Admin: 11/08/16 18:19 Dose: 2.5 mg Albuterol (Ventolin Hfa) 0 gm INH Q4H PRN PRN Reason: Shortness Of Breath/wheezing Last Admin: 11/05/16 08:15 Dose: 2 puff Amiodarone HCl (Cordarone) 200 mg PO DAILY [facility] Last Admin: 11/09/16 08:36 Dose: 200 mg Carvedilol (Coreg) 12.5 mg PO BIDMEALS [facility] Last Admin: 11/09/16 08:38 Dose: Not Given Chlorpromazine HCl (Thorazine) 50 mg IM Q6H PRN PRN Reason: Hiccups Sodium Chloride (Normal Saline) 500 mls @ 499 mls/hr IV Q2HR PRN PRN Reason: HYPOTENSION Last Admin: 11/01/16 23:45 Dose: 499 mls/hr Lorazepam (Ativan) 1 mg IVPUSH Q4H PRN PRN Reason: Anxiety Last Admin: 11/09/16 06:44 Dose: 1 mg Metoprolol Tartrate (Lopressor) 2.5 mg IVPUSH Q4H PRN PRN Reason: Tachycardia Morphine Sulfate (Morphine) 5 mg IVPUSH Q1H PRN PRN Reason: Pain Nystatin (Mycostatin) 5 ml PO QIDACANDBED [facility] Last Admin: 11/09/16 06:31 Dose: Not Given Ondansetron HCl (Zofran) 4 mg IVPUSH Q4H PRN PRN Reason: Nausea Last Admin: 11/08/16 06:46 Dose: 4 mg Promethazine HCl (Phenergan) 12.5 mg IM Q4H PRN PRN Reason: Nausea/Vomiting Last Admin: 11/08/16 09:17 Dose: 12.5 mg Discontinued Medications Acetaminophen (Tylenol) 650 mg PO Q4H PRN PRN Reason: Pain (Mild 1-3)/fever Hydrocodone Bitart/Acetaminophen ([place] 325-5 Mg) 2 tab PO Q4H PRN PRN Reason: Pain (moderate 4-6) Last Admin: 11/02/16 03:35 Dose: 2 tab Bisacodyl (Dulcolax) 5 mg PO DAILY PRN PRN Reason: Constipation Bisacodyl (Dulcolax) 5 mg PO DAILY [facility] Last Admin: 11/08/16 14:32 Dose: Not Given Cyclobenzaprine HCl (Flexeril) 5 mg PO TID PRN PRN Reason: Spasms Diltiazem HCl (Cardizem Cd) 180 mg PO DAILY [facility] Last Admin: 11/02/16 09:15 Dose: Not Given Docusate Sodium (Colace) 100 mg PO BID PRN PRN Reason: Constipation Last Admin: 11/01/16 20:24 Dose: 100 mg Docusate Sodium (Colace) 100 mg PO BID [facility] Last Admin: 11/08/16 08:21 Dose: 100 mg Enoxaparin Sodium (Lovenox) 40 mg SUBCUT Q24H [facility] Last Admin: 11/01/16 17:31 Dose: 40 mg Fentanyl (Duragesic) 50 mcg TRDERM Q72H [facility] Last Admin: 10/31/16 18:02 Dose: 50 mcg Furosemide (Lasix) 40 mg IVPUSH Q12H [facility] Last Admin: 11/02/16 05:40 Dose: Not Given Furosemide (Lasix) 40 mg IVPUSH NOW ONE Stop: 11/02/16 12:40 Last Admin: 11/02/16 13:03 Dose: Not Given Furosemide (Lasix) 20 mg IVPUSH NOW ONE Stop: 11/02/16 12:51 Last Admin: 11/02/16 13:14 Dose: 20 mg Furosemide (Lasix) 40 mg IVPUSH NOW ONE Stop: 11/02/16 18:55 Last Admin: 11/02/16 19:27 Dose: 40 mg Furosemide (Lasix) 40 mg IVPUSH NOW ONE Stop: 11/03/16 08:31 Last Admin: 11/03/16 08:25 Dose: 40 mg Furosemide (Lasix) 40 mg IVPUSH NOW ONE Stop: 11/03/16 18:16 Last Admin: 11/03/16 19:20 Dose: 40 mg Furosemide (Lasix) 40 mg IVPUSH NOW ONE Stop: 11/04/16 12:22 Last Admin: 11/04/16 12:34 Dose: 40 mg Furosemide (Lasix) 40 mg IVPUSH NOW ONE Stop: 11/04/16 20:01 Last Admin: 11/04/16 20:41 Dose: Not Given Sodium Chloride (Normal Saline) 1,000 mls @ 75 mls/hr IV ASDIRECTED [facility] Levofloxacin/Dextrose 750 mg/ (Premix) 150 mls @ 100 mls/hr IV Q24H [facility] Last Admin: 10/31/16 20:42 Dose: 100 mls/hr Sodium Chloride (Normal Saline) 500 mls @ 499 mls/hr IV .BOLUS [facility] Last Admin: 11/02/16 02:13 Dose: 499 mls/hr Levofloxacin/Dextrose 750 mg/ (Premix) 150 mls @ 100 mls/hr IV Q48H [facility] Vancomycin HCl 1.25 gm/ Sodium (Chloride) 500 mls @ 333.333 mls/hr IV Q18H [facility] Vancomycin HCl 1.25 gm/ Sodium (Chloride) 250 mls @ 166.667 mls/hr IV Q18H [facility] Vancomycin HCl 1.25 gm/ Sodium (Chloride) 250 mls @ 166.667 mls/hr IV Q18H [facility] Last Admin: 11/05/16 12:16 Dose: Not Given Levofloxacin/Dextrose 750 mg/ (Premix) 150 mls @ 100 mls/hr IV Q48H [facility] Last Admin: 11/03/16 17:08 Dose: 100 mls/hr Piperacillin Sod/Tazobactam (Sod 3.375 gm/ Sodium Chloride) 50 mls @ 100 mls/ hr IV Q6H [facility] Last Admin: 11/03/16 08:03 Dose: 100 mls/hr Cefepime HCl 2 gm/ Premix 50 mls @ 100 mls/hr IV Q8H [facility] Last Admin: 11/03/16 19:15 Dose: Not Given Cefepime HCl 2 gm/ Premix 50 mls @ 100 mls/hr IV Q8H [facility] Last Admin: 11/04/16 10:46 Dose: 100 mls/hr Azithromycin 500 mg/ Sodium (Chloride) 250 mls @ 250 mls/hr IV Q24H [facility] Last Admin: 11/03/16 20:02 Dose: 250 mls/hr Cefepime HCl 2 gm/ Premix 50 mls @ 100 mls/hr IV Q24H [facility] Last Admin: 11/08/16 09:16 Dose: 100 mls/hr Azithromycin 500 mg/ Sodium (Chloride) 250 mls @ 250 mls/hr IV Q24H [facility] Last Admin: 11/08/16 16:47 Dose: 250 mls/hr Vancomycin HCl 1 gm/ Sodium (Chloride) 250 mls @ 166.667 mls/hr IV Q18H [facility] Last Infusion: 11/07/16 06:15 Dose: Infused Sodium Chloride (Normal Saline) 500 mls @ 500 mls/hr IV ONETIME ONE Stop: 11/06/16 19:14 Last Infusion: 11/06/16 19:18 Dose: Infused Sodium Chloride (Normal Saline) Confirm Administered Dose 250 mls @ as directed .ROUTE .STK-MED ONE Stop: 11/07/16 21:01 Last Admin: 11/07/16 21:04 Dose: Not Given Vancomycin HCl 1 gm/ Sodium (Chloride) 250 mls @ 166.667 mls/hr IV Q24H [facility] Last Infusion: 11/08/16 05:56 Dose: Infused Ibuprofen (Motrin) 800 mg PO Q8H PRN PRN Reason: Pain Last Admin: 11/02/16 10:19 Dose: 800 mg Levofloxacin (Levaquin) 750 mg PO Q24H [facility] Last Admin: 11/01/16 17:31 Dose: 750 mg Lisinopril (Prinivil) 20 mg PO DAILY [facility] Last Admin: 11/01/16 08:07 Dose: Not Given Lisinopril (Prinivil) 5 mg PO DAILY [facility] Last Admin: 11/02/16 09:16 Dose: Not Given Lorazepam (Ativan) 0.5 - 1 mg IVPUSH Q2H PRN PRN Reason: Anxiety Megestrol Acetate (Megace 40 Mg/Ml Susp) 400 mg PO DAILY [facility] Last Admin: 11/08/16 14:31 Dose: Not Given Morphine Sulfate (Morphine) 2 mg IVPUSH ONETIME ONE Stop: 11/08/16 17:56 Last Admin: 11/08/16 18:04 Dose: 2 mg Morphine Sulfate (Morphine) Confirm Administered Dose 10 mg .ROUTE .STK-MED ONE Stop: 11/08/16 18:00 Last Admin: 11/08/16 18:25 Dose: Not Given Morphine Sulfate (Morphine) 3 mg IVPUSH Q1H STA Stop: 11/08/16 18:14 Last Admin: 11/08/16 18:23 Dose: 3 mg Nystatin (Mycostatin) 5 ml PO QIDACANDBED [facility] Omeprazole (Omeprazole) 20 mg PO ACBREAKFAST [facility] Last Admin: 11/08/16 06:35 Dose: 20 mg Oxycodone HCl (Oxycontin) 40 mg PO Q12HR [facility] Last Admin: 11/08/16 08:22 Dose: 40 mg Oxycodone HCl (Oxycodone) 10 mg PO Q3H PRN PRN Reason: Pain Last Admin: 11/07/16 14:08 Dose: 10 mg Lidocaine 5% Patch 1 each TOP DAILY [facility] Last Admin: 11/01/16 09:44 Dose: Not Given Polyethylene Glycol (Miralax) 17 gm PO DAILY PRN PRN Reason: Constipation Polyethylene Glycol (Miralax) 17 gm PO DAILY [facility] Last Admin: 11/08/16 08:21 Dose: 17 gm Prednisone (Prednisone) 10 mg PO DAILY [facility] Last Admin: 11/08/16 08:21 Dose: 10 mg Promethazine HCl (Phenergan) 25 mg PO Q4H PRN PRN Reason: Nausea/Vomiting *Q Meaningful Use (DIS) - VTE *Q VTE Criteria *Q: - Stroke *Q Stroke Criteria *Q: - AMI *Q AMI Criteria *Q:
[2016-11-09 11:43] VITALS: BP 95/58
== END 2016-11-09 11:20 | disposition hospice, home (50) | DRG 136 ==
LOC: MW.MS 15:50 → OBSVTOIN 17:21
PROVIDERS: ADMIT Internal Medicine; ATTEND Internal Medicine
DX: C34.90 Malignant neoplasm of unspecified part of unspecified bronchus or lung (principal); C79.51 Secondary malignant neoplasm of bone; I48.91 Unspecified atrial fibrillation; I50.20 Unspecified systolic (congestive) heart failure; K85.90 Acute pancreatitis without necrosis or infection, unspecified; J18.9 Pneumonia, unspecified organism; G89.29 Other chronic pain; R60.9 Edema, unspecified; B37.0 Candidal stomatitis; I95.9 Hypotension, unspecified; F17.200 Nicotine dependence, unspecified, uncomplicated; Z79.899 Other long term (current) drug therapy; Z51.5 Encounter for palliative care; Z91.14 Patient's other noncompliance with medication regimen
CPT/HCPCS: 36415; 51703; 71020; 71020-26; 74176; 74176-26; 76705; 76705-26; 80048; 80053; 80061; 80202; 81001; 82150; 82962; 83690; 83735; 83880; 85025; 85610; 87040; 87086; 93005; 93306; 94640; 94664; 97161-GP; 97530-GP; A9270-GY; J0456; J0692; J1650; J1940; J1956; J2060; J2270; J2405; J2543; J2550; J3370; J7040; J7050